=== PATIENT | female | born 1940 | race Caucasian/White ===

== ENCOUNTER → 2020-05-17 14:24 | Outpatient (BNVA) | payer MEDICARE, SELFPAY | PROVIDERS: PCP Internal Medicine; Visit Provider Hospitalist | DX: J45.40 Moderate persistent asthma, uncomplicated (principal); E66.09 Other obesity due to excess calories | CPT/HCPCS: 99212 ==

== ENCOUNTER → 2020-07-26 14:23 | Outpatient (BNVA) | payer MEDICARE, SELFPAY | PROVIDERS: PCP Internal Medicine; Visit Provider Hospitalist | DX: J45.40 Moderate persistent asthma, uncomplicated (principal); K44.9 Diaphragmatic hernia without obstruction or gangrene; Z79.899 Other long term (current) drug therapy | CPT/HCPCS: 99212 ==

== ENCOUNTER 2021-01-07 13:34 | Outpatient (REF) | payer MEDICARE, SELFPAY ==
--- NOTE | ~2021-01-07 | XR_ITS ---
EXAMINATION: XR CHEST CLINICAL INFORMATION: Dyspnea COMPARISON: None TECHNIQUE: 2 views of the chest were obtained. FINDINGS: The cardiac silhouette does not appear enlarged. The thoracic aorta is tortuous. Hilar and mediastinal contours are otherwise unremarkable. The lungs are clear. There is no pleural effusion or pneumothorax. There are degenerative changes of the spine and scoliosis. There may be an old mild lower thoracic vertebral body compression fracture. XR/XR chest 2V IMPRESSION: No evidence for acute disease in the chest.
== END 2021-01-07 13:35 | disposition home or self-care (01) ==
LOC: HO.XRAY 13:34
PROVIDERS: PCP Internal Medicine; Visit Provider Hospitalist
DX: R06.00 Dyspnea, unspecified (principal); J45.40 Moderate persistent asthma, uncomplicated; K44.9 Diaphragmatic hernia without obstruction or gangrene
CPT/HCPCS: 71046; 99212

== ENCOUNTER → 2021-01-21 14:09 | Outpatient (BNVA) | payer MEDICARE, SELFPAY | PROVIDERS: PCP Internal Medicine; Visit Provider Hospitalist | DX: J45.40 Moderate persistent asthma, uncomplicated (principal) | CPT/HCPCS: 99212 ==

== ENCOUNTER → 2021-05-12 13:11 | Outpatient (BNVA) | payer MEDICARE, SELFPAY | PROVIDERS: PCP Physician Assistant Medical; Visit Provider Hospitalist | DX: R06.00 Dyspnea, unspecified (principal); J45.40 Moderate persistent asthma, uncomplicated; K44.9 Diaphragmatic hernia without obstruction or gangrene; Z79.899 Other long term (current) drug therapy | CPT/HCPCS: 99212 ==

== ENCOUNTER 2021-07-28 11:34 | Outpatient (REF) | payer MEDICARE, SELFPAY ==
--- NOTE | ~2021-07-28 | XR_ITS ---
EXAMINATION: XR CHEST CLINICAL INFORMATION: Bronchitis. COMPARISON: 01/07/2021 chest radiographs. TECHNIQUE: 2 views of the chest were obtained. FINDINGS: The lungs are clear. There are no pleural effusions. The heart and mediastinal structures are unremarkable. Tortuosity of the descending thoracic aorta is again noted without interval change. XR/XR chest 2V IMPRESSION: No acute cardiopulmonary process.
== END 2021-07-28 11:35 | disposition home or self-care (01) ==
LOC: HO.XRAY 11:34
PROVIDERS: PCP Physician Assistant Medical; Visit Provider Internal Medicine
DX: J45.40 Moderate persistent asthma, uncomplicated (principal); J40 Bronchitis, not specified as acute or chronic
CPT/HCPCS: 71046; 99212

== ENCOUNTER → 2021-10-14 14:16 | Outpatient (BNVA) | payer MEDICARE, SELFPAY | PROVIDERS: PCP Physician Assistant Medical; Visit Provider Hospitalist | DX: J45.40 Moderate persistent asthma, uncomplicated (principal); R06.00 Dyspnea, unspecified; K44.9 Diaphragmatic hernia without obstruction or gangrene; Z79.899 Other long term (current) drug therapy | CPT/HCPCS: 99212 ==

== ENCOUNTER 2022-05-19 14:28 | Outpatient (REF) | payer MEDICARE, SELFPAY ==
--- NOTE | 2022-05-19 17:09 | PFT_ITS ---
INDICATION: COPD. SPIROMETRY: FEV1 to FVC 77% with an FEV1 of 1.68 L, which is 89% predicted and FVC of 2.19 L, which is 86% predicted. No significant response to bronchodilator is noted. Maximum voluntary ventilation 88% predicted. LUNG VOLUMES: Total lung capacity 76% predicted with expiratory residual volume of 42% predicted. DIFFUSION CAPACITY: DLCO 49% predicted. COMPARISONS: None. INTERPRETATION: No obstructive ventilatory defects. No significant response to bronchodilator is noted. Normal maximum voluntary ventilation. The patient does have a restrictive ventilatory defect consisting with mild restrictive lung disease. There is also moderate diffusion impairment. Clinical correlation warranted. Raheem Dixon MD MR/MODL / [id number]
== END 2022-05-19 14:29 | disposition home or self-care (01) ==
LOC: HO.RESP 14:28
PROVIDERS: PCP Physician Assistant Medical; Visit Provider Hospitalist
DX: J45.50 Severe persistent asthma, uncomplicated (principal)
CPT/HCPCS: 94060; 94727; 94729

== ENCOUNTER → 2022-06-11 14:26 | Outpatient (BNVA) | payer MEDICARE, SELFPAY | PROVIDERS: PCP Physician Assistant Medical; Visit Provider Hospitalist | DX: J45.40 Moderate persistent asthma, uncomplicated (principal); K44.9 Diaphragmatic hernia without obstruction or gangrene; R06.00 Dyspnea, unspecified | CPT/HCPCS: 99212 ==

== ENCOUNTER 2023-04-01 15:15 | Outpatient (AMB) | payer MEDICARE, SELFPAY ==
[2023-04-01 15:50] VITALS: PULSE 89; O2SAT 96; BMI 25.7
--- NOTE | 2023-04-01 15:50 | MHC.OFFVIS ---
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 Recently she went to [place] with a bending roll hand. Upon arrival her luggage was lost and she was without her Symbicort for a couple days. She did buy [id number] Symbicort but he came in a powdered device that she did not know how to use. Subsequently after she returned she started developing worsening shortness of breath and cough. She was given a course of azithromycin which she took without any significant improvement. Therefore, she was evaluated in the office of her primary care and was given a prednisone taper. She did have a chest x-ray and radiology imaging which was read as normal. But, we did evaluated in the office in appeared that she did have spine sign suggesting airspace disease in the lower lung zone. Clinically she feels better although she still has a nagging back discomfort. It is not pleuritic in nature. We did discuss her x-ray that she had which was within normal limits. 10/14/2021 the patient is here for a pulmonary follow-up visit. Overall the patient has been feeling a lot better. Back in July she developed an exacerbation of her asthma and also developed bronchopneumonia. If she needed antibiotics and also completed a course of prednisone. Now she is back to her baseline. She also has developed COVID a few times. She responded well to the monoclonal antibodies. I did recommend that she get her modified booster which she is now available for the fall. however, she has completed a course of rabies vaccination after having a bad her bedroom. Therefore she would like to hold off for few weeks until she is recovered from all those vaccines. She does continue with current respiratory therapy with good effect. We did review her chest x-ray from back in July 2021 demonstrating no acute disease which is reassuring. Otherwise patient is without any other complaints. 06/11/2022 The patient is here for a pulmonary follow up visit. The patient is better. She denies any new respiratory issues. Has been tolerating the symbicort and DEB. Overall the patient is doing well after developing COVID back in the fall 2021. Denies any chest pains or shortness of breath. No significant cough. Overall the patient is doing well on current therapy. The patient did have recent pulmonary function studies which we personally reviewed. No evidence of any obstruction although she does have a mild restrictive ventilatory defect. In addition to that there is a moderate diffusion impairment. We did review her last chest x-ray from July 2021 demonstrating no acute disease. No further imaging warranted. The patient is going to continue with current respiratory regimen. 04/01/2023 the patient is here for pulmonary follow-up visit. Recently she was sick with an asthma flare. Likely viral syndrome.. She did require prednisone. She also required a course of antibiotics. She is feeling better. In the meantime she was switched over from Symbicort to Breo. She does not tolerate the Breo inhaler. It does not help her and is actually making a cough and some comfortable. She would like to go back to Symbicort the work very well for her. Will go ahead and send a prescription in a [place] to get her approved since her insurance is no longer covering. Otherwise patient is doing well. Denies any significant reflux symptoms. [facility] Medical History (Updated 04/05/23 @ 09:00 by Raheem Dixon MD) Chronic restrictive lung disease Hyperlipidemia Hypothyroidism Limb swelling Dyspnea Hiatal hernia Diabetes Asthma Social History Patient Tobacco Use Status: Never used Tobacco Review of Systems Const Denies night sweats ENT Denies change in voice, Denies lip swelling, Denies mouth pain, Reports nasal congestion, Reports nasal discharge and Denies tongue swelling Card Denies chest pain and Denies dyspnea Resp Denies chest congestion, Reports cough, Denies pain on inspiration, Denies pain with cough, Denies dyspnea and Denies wheezing GI Reports heartburn Musc Denies no additional complaints, Reports arthralgias and Reports joint swelling Neuro Denies Neuro-related abnormal movements Psych Denies no additional complaints Rad/Lymph Denies easy bleeding and Denies lymphadenopathy Aller/Immun Denies lip swelling, Denies tongue swelling and Denies wheezing Physical Exam Vital Signs: Last Vital Signs Pulse 89 04/01/23 15:50 Pulse Ox 96 04/01/23 15:50 Oxygen Delivery Method Room Air 04/01/23 15:50 BMI result Body Mass Index 25.7 Const General: alert Orientation/consciousness: patient oriented x3 HEENT Head: Yes normal to inspection General nose exam: No nasal polyps present and No nasal discharge present Face and sinus: Yes sinuses nontender Mouth: oropharynx normal Throat: Yes posterior oropharynx normal Eyes General: appearance normal, both eyes and all related structures Neck Neck: Yes normal visual inspection, Yes full ROM and Yes no lymphadenopathy Thyroid: Thyroid normal Chest Chest palpation & inspection: normal inspection of the chest Resp Effort & Inspection: normal respiratory effort Auscultation: diminished lung sounds Cardio Palpation: normal PMI Rate: regular rate Rhythm: regular rhythm Heart sounds: S1 normal heart sound present, S2 normal heart sound present, no gallops and no murmurs Peripheral pulses: Peripheral pulses 2+ throughout GI Palpation (GI): Soft to palpation, nontender and no masses Auscultation: normal bowel sounds Back/Spine/Pelvis Thoracic/Lumbar Spine: thoracic and lumbar spine normal to inspection Skin General skin exam: no rashes or lesions noted Neuro General: patient oriented x3 and no focal motor deficits Cranial nerves: Yes CN's II-XII intact bilaterally Extrem General: No calf tenderness Psych Speech and movement: Normal speech and movement present Assessment & Plan Assessment & Plan (1) Asthma: Code(s): J45.909 - Unspecified asthma, uncomplicated Qualifiers: Asthma complication type: uncomplicated Asthma persistence: persistent Asthma severity: moderate Qualified Code(s): J45.40 - Moderate persistent asthma, uncomplicated (2) Dyspnea: Code(s): R06.00 - Dyspnea, unspecified Qualifiers: Dyspnea type: dyspnea on exertion Qualified Code(s): R06.09 - Other forms of dyspnea (3) Hiatal hernia: Code(s): K44.9 - Diaphragmatic hernia without obstruction or gangrene Plan stop Breo, did not tolerate restart Symbicort continue Singulair DEB as needed reflux diet CXR F/U 8-12 months Coding Level of Care Code Est Pt Level 4 (04031) Diagnoses Moderate persistent asthma without complication J45.40 Asthma complication type: uncomplicated Asthma persistence: persistent Asthma severity: moderate Dyspnea on exertion R06.09 Dyspnea type: dyspnea on exertion Hiatal hernia K44.9 Time Spent (min) 16
== END 2023-04-01 16:20 | disposition home or self-care (01) ==
PROVIDERS: PCP Physician Assistant Medical; Visit Provider Hospitalist
DX: J45.40 Moderate persistent asthma, uncomplicated (principal); R06.09 Other forms of dyspnea; K44.9 Diaphragmatic hernia without obstruction or gangrene
CPT/HCPCS: 99214

== ENCOUNTER → 2023-04-01 15:15 | Outpatient (BNVA) | payer MEDICARE, SELFPAY | PROVIDERS: PCP Physician Assistant Medical; Visit Provider Hospitalist | DX: J45.40 Moderate persistent asthma, uncomplicated (principal); K44.9 Diaphragmatic hernia without obstruction or gangrene; R06.09 Other forms of dyspnea | CPT/HCPCS: 99212 ==

== ENCOUNTER 2023-09-29 07:47 | Outpatient (AMB) | payer MEDICARE, SELFPAY ==
--- NOTE | 2023-09-29 08:15 | MHC.OFFVIS ---
Vital Signs 09/29/23 08:16 Height 5 ft 4 in Weight 155 lb BMI 26.6 BP 122/60 Blood Pressure Location Lt brachial Position Sitting Pulse 71 Pulse Source Pulse Oximeter Intake Visit Reasons: copd Joy Loading Machine Operator Required: No Allergies levofloxacin [Levaquin] Allergy (Severe, Verified 09/29/23 08:18) Rash/Hives tiotropium [Spiriva with HandiHaler] Allergy (Severe, Verified 09/29/23 08:18) Rash/Hives Avelox Allergy (Severe, Uncoded 09/29/23 08:18) Rash/Hives Hydrodiuril Allergy (Severe, Uncoded 09/29/23 08:18) Rash/Hives Penicillin Allergy (Severe, Uncoded 09/29/23 08:18) Rash/Hives Sulfa Drugs Allergy (Severe, Uncoded 09/29/23 08:18) Rash/Hives HPI Comments Details: The patient is a 83 y/o woman with a history of asthma. Recently she went to [place] with a hunter guide. Upon arrival her luggage was lost and she was without her Symbicort for a couple days. She did buy [id number] Symbicort but he came in a powdered device that she did not know how to use. Subsequently after she returned she started developing worsening shortness of breath and cough. She was given a course of azithromycin which she took without any significant improvement. Therefore, she was evaluated in the office of her primary care and was given a prednisone taper. She did have a chest x-ray and radiology imaging which was read as normal. But, we did evaluated in the office in appeared that she did have spine sign suggesting airspace disease in the lower lung zone. Clinically she feels better although she still has a nagging back discomfort. It is not pleuritic in nature. We did discuss her x-ray that she had which was within normal limits. 10/14/2021 the patient is here for a pulmonary follow-up visit. Overall the patient has been feeling a lot better. Back in July she developed an exacerbation of her asthma and also developed bronchopneumonia. If she needed antibiotics and also completed a course of prednisone. Now she is back to her baseline. She also has developed COVID a few times. She responded well to the monoclonal antibodies. I did recommend that she get her modified booster which she is now available for the fall. however, she has completed a course of rabies vaccination after having a bad her bedroom. Therefore she would like to hold off for few weeks until she is recovered from all those vaccines. She does continue with current respiratory therapy with good effect. We did review her chest x-ray from back in July 2021 demonstrating no acute disease which is reassuring. Otherwise patient is without any other complaints. 06/11/2022 The patient is here for a pulmonary follow up visit. The patient is better. She denies any new respiratory issues. Has been tolerating the symbicort and DEB. Overall the patient is doing well after developing COVID back in the fall 2021. Denies any chest pains or shortness of breath. No significant cough. Overall the patient is doing well on current therapy. The patient did have recent pulmonary function studies which we personally reviewed. No evidence of any obstruction although she does have a mild restrictive ventilatory defect. In addition to that there is a moderate diffusion impairment. We did review her last chest x-ray from July 2021 demonstrating no acute disease. No further imaging warranted. The patient is going to continue with current respiratory regimen. 04/01/2023 the patient is here for pulmonary follow-up visit. Recently she was sick with an asthma flare. Likely viral syndrome.. She did require prednisone. She also required a course of antibiotics. She is feeling better. In the meantime she was switched over from Symbicort to Breo. She does not tolerate the Breo inhaler. It does not help her and is actually making a cough and some comfortable. She would like to go back to SymbiOptynrt the work very well for her. Will go ahead and send a prescription in a [place] to get her approved since her insurance is no longer covering. Otherwise patient is doing well. Denies any significant reflux symptoms. 09/29/2023 the patient is here for pulmonary follow-up visit. Since we last saw her she did develop a respiratory infection. She started coughing. She can not see her here so she went to an urgent care. She had an x-ray that apparently was clear. She was given a course of doxycycline for bronchitis. Although still lingering. Moderate severity. She feels sometimes a croupy cough. She does bring up some phlegm although she does not always look at it. The patient also has been using the Symbicort with good effect. She has not noticed any wheezing or chest tightness. She has not had to use her rescue inhaler. On her visit today she did cough and sounds like tracheitis some degree with some croupy cough component. She also has some coarse breath sounds. Will go ahead and start her on Vantin since she is allergic to penicillins apparently however, she has never really use penicillin issue started mom was allergic. Therefore the needs to be readdress at some point. The patient will call she is no better. Otherwise she will continue her respiratory therapy and use Mucinex. Patient follow-up in 6 months. [facility] Medical History (Updated 09/29/23 @ 10:51 by Raheem Dixon MD) Chronic restrictive lung disease Hyperlipidemia Hypothyroidism Limb swelling Dyspnea Hiatal hernia Diabetes Asthma Social History Patient Tobacco Use Status: Never used Tobacco Review of Systems Const Denies night sweats ENT Denies change in voice, Denies lip swelling, Denies mouth pain, Reports nasal congestion, Reports nasal discharge and Denies tongue swelling Card Denies chest pain and Denies dyspnea Resp Reports change in phlegm color, Reports chest congestion, Reports cough, Denies pain on inspiration, Denies pain with cough, Denies dyspnea and Denies wheezing GI Reports heartburn Musc Denies no additional complaints, Reports arthralgias and Reports joint swelling Neuro Denies Neuro-related abnormal movements Psych Denies no additional complaints Rad/Lymph Denies easy bleeding and Denies lymphadenopathy Aller/Immun Denies lip swelling, Denies tongue swelling and Denies wheezing Physical Exam Vital Signs: Last Vital Signs Pulse 71 09/29/23 08:16 BP 122/60 09/29/23 08:16 BMI result Body Mass Index 26.6 Const General: alert Orientation/consciousness: patient oriented x3 HEENT Head: Yes normal to inspection General nose exam: No nasal polyps present and No nasal discharge present Face and sinus: Yes sinuses nontender Mouth: oropharynx normal Throat: Yes posterior oropharynx normal Eyes General: appearance normal, both eyes and all related structures Neck Neck: Yes normal visual inspection, Yes full ROM and Yes no lymphadenopathy Thyroid: Thyroid normal Chest Chest palpation & inspection: normal inspection of the chest Resp Effort & Inspection: normal respiratory effort Auscultation: diminished lung sounds Cardio Palpation: normal PMI Rate: regular rate Rhythm: regular rhythm Heart sounds: S1 normal heart sound present, S2 normal heart sound present, no gallops and no murmurs Peripheral pulses: Peripheral pulses 2+ throughout GI Palpation (GI): Soft to palpation, nontender and no masses Auscultation: normal bowel sounds Back/Spine/Pelvis Thoracic/Lumbar Spine: thoracic and lumbar spine normal to inspection Skin General skin exam: no rashes or lesions noted Neuro General: patient oriented x3 and no focal motor deficits Cranial nerves: Yes CN's II-XII intact bilaterally Extrem General: No calf tenderness Psych Speech and movement: Normal speech and movement present Results Reviewed Results Reviewed: personally review CXR 07/2023 without acute disease Assessment & Plan Assessment & Plan (1) Tracheobronchitis: Code(s): J40 - Bronchitis, not specified as acute or chronic Category: Medical (2) Asthma: Code(s): J45.909 - Unspecified asthma, uncomplicated Category: Medical Qualifiers: Asthma complication type: uncomplicated Asthma persistence: persistent Asthma severity: moderate Qualified Code(s): J45.40 - Moderate persistent asthma, uncomplicated (3) Dyspnea: Code(s): R06.00 - Dyspnea, unspecified Category: Medical Qualifiers: Dyspnea type: dyspnea on exertion Qualified Code(s): R06.09 - Other forms of dyspnea (4) Hiatal hernia: Code(s): K44.9 - Diaphragmatic hernia without obstruction or gangrene Category: Medical Plan start Vantin (completed Doxycycline) continue Symbicort continue Singulair DEB as needed reflux diet F/U 6 months Medications: New cefpodoxime must administer with a meal/food 200 mg PO BID 20 tabs 0RF 10 days Coding Level of Care Code Est Pt Level 4 (73865) Complex EM visit Add On G2211 Diagnoses Tracheobronchitis J40 Moderate persistent asthma without complication J45.40 Asthma complication type: uncomplicated Asthma persistence: persistent Asthma severity: moderate Dyspnea on exertion R06.09 Dyspnea type: dyspnea on exertion Hiatal hernia K44.9 Time Spent (min) 17
[2023-09-29 08:16] VITALS: BP 122/60; PULSE 71; BMI 26.6
== END 2023-09-29 08:43 | disposition home or self-care (01) ==
PROVIDERS: PCP Physician Assistant Medical; Visit Provider Hospitalist
DX: J40 Bronchitis, not specified as acute or chronic (principal); J45.40 Moderate persistent asthma, uncomplicated; R06.09 Other forms of dyspnea; K44.9 Diaphragmatic hernia without obstruction or gangrene
CPT/HCPCS: 99214; G2211

== ENCOUNTER → 2023-09-29 07:47 | Outpatient (BNVA) | payer MEDICARE, SELFPAY | PROVIDERS: PCP Physician Assistant Medical; Visit Provider Hospitalist | DX: J40 Bronchitis, not specified as acute or chronic (principal); J45.40 Moderate persistent asthma, uncomplicated; R06.09 Other forms of dyspnea; K44.9 Diaphragmatic hernia without obstruction or gangrene | CPT/HCPCS: 99212 ==

== ENCOUNTER 2023-11-04 10:07 | Outpatient (AMB) | payer MEDICARE, SELFPAY ==
--- NOTE | 2023-11-04 10:29 | A.OFFVIS_ITS ---
Vital Signs 11/04/23 10:30 Height 5 ft 4 in Weight 154 lb BMI 26.4 BP 110/70 Blood Pressure Location Lt brachial Position Sitting Pulse 78 Pulse Source Pulse Oximeter Pulse Oximetry (%) 99 Oxygen Delivery Method Room Air Intake Visit Reasons: COPD Clinical Law Professor Required: No Allergies levofloxacin [Levaquin] Allergy (Severe, Verified 11/04/23 10:34) Rash/Hives tiotropium [Spiriva with HandiHaler] Allergy (Severe, Verified 11/04/23 10:34) Rash/Hives cefpodoxime [From Vantin] Adverse Reaction (Intermediate, Verified 11/04/23 10:43) Abdominal Pain Avelox Allergy (Severe, Uncoded 11/04/23 10:34) Rash/Hives Hydrodiuril Allergy (Severe, Uncoded 11/04/23 10:34) Rash/Hives Penicillin Allergy (Severe, Uncoded 11/04/23 10:34) Rash/Hives Sulfa Drugs Allergy (Severe, Uncoded 11/04/23 10:34) Rash/Hives HPI Comments Details: The patient is a 83 y/o woman with a history of asthma. Recently she went to [place] with a clerk guide. Upon arrival her luggage was lost and she was without her Symbicort for a couple days. She did buy [id number] Symbicort but he came in a powdered device that she did not know how to use. Subsequently after she returned she started developing worsening shortness of breath and cough. She was given a course of azithromycin which she took without any significant i mprovement. Therefore, she was evaluated in the office of her primary care and was given a prednisone taper. She did have a chest x-ray and radiology imaging which was read as normal. But, we did evaluated in the office in appeared that she did have spine sign suggesting airspace disease in the lower lung zone. Clinically she feels better although she still has a nagging back discomfort. It is not pleuritic in nature. We did discuss her x-ray that she had which was within normal limits. 10/14/2021 the patient is here for a pulmonary follow-up visit. Overall the patient has been feeling a lot better. Back in July she developed an exacerbation of her asthma and also developed bronchopneumonia. If she needed antibiotics and also completed a course of prednisone. Now she is back to her baseline. She also has developed COVID a few times. She responded well to the monoclonal antibodies. I did recommend that she get her modified booster which she is now available for the fall. however, she has completed a course of rabies vaccination after having a bad her bedroom. Therefore she would like to hold off for few weeks until she is recovered from all those vaccines. She does continue with current respiratory therapy with good effect. We did review her chest x-ray from back in July 2021 demonstrating no acute disease which is reassuring. Otherwise patient is without any other complaints. 06/11/2022 The patient is here for a pulmonary follow up visit. The patient is better. She denies any new respiratory issues. Has been tolerating the symbicort and DEB. Overall the patient is doing well after developing COVID back in the fall 2021. Denies any chest pains or shortness of breath. No significant cough. Overall the patient is doing well on current therapy. The patient did have recent pulmonary function studies which we personally reviewed. No evidence of any obstruction although she does have a mild restrictive ventilatory defect. In addition to that there is a moderate diffusion impairment. We did review her last chest x-ray from July 2021 demonstrating no acute disease. No further imaging warranted. The patient is going to continue with current respiratory regimen. 04/01/2023 the patient is here for pulmonary follow-up visit. Recently she was sick with an asthma flare. Likely viral syndrome.. She did require prednisone. She also required a course of antibiotics. She is feeling better. In the meantime she was switched over from Symbicort to Breo. She does not tolerate the Breo inhaler. It does not help her and is actually making a cough and some comfortable. She would like to go back to Symbicort the work very well for her. Will go ahead and send a prescription in a PA to get her approved since her insurance is no longer covering. Otherwise patient is doing well. Denies any significant reflux symptoms. 09/29/2023 the patient is here for pulmonary follow-up visit. Since we last saw her she did develop a respiratory infection. She started coughing. She can not see her here so she went to an urgent care. She had an x-ray that apparently was clear. She was given a course of doxycycline for bronchitis. Although still lingering. Moderate severity. She feels sometimes a croupy cough. She does bring up some phlegm although she does not always look at it. The patient also has been using the Symbicort with good effect. She has not noticed any wheezing or chest tightness. She has not had to use her rescue inhaler. On her visit today she did cough and sounds like tracheitis some degree with some croupy cough component. She also has some coarse breath sounds. Will go ahead and start her on Vantin since she is allergic to penicillins apparently however, she has never really use penicillin issue started mom was allergic. Therefore the needs to be readdress at some point. The patient will call she is no better. Otherwise she will continue her respiratory therapy and use Mucinex. Patient follow-up in 6 months. 11/04/2023 the patient is here for a pulmonary follow-up visit. Overall she is doing better. During the last visit she had been sick with bronchitis. She has given a multiple courses of antibiotics. However the Vantin did cause her to have significant abdominal discomfort. After few days she had to stop it. She did feel like it helped some. Afterwards she was switched over to azithromycin and she tolerated a lot better. She still has a cough although nonproductive in nature. This can hacky. We can try Tessalon Perles to see if we can provide her some relief. He is also concerned because she was found to have a nodule that had to be biopsy because it was growing in size. And it showed suspicious cells. She is going to be seen does not general surgeon soon regarding a possible resection of thyroid area. I did reassure her that she is doing well from a respiratory status she could proceed forward. 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 However, she has been doing well from that standpoint. She has to let anesthesia know that she is at risk for laryngeal spasms so they can minimize any irritation to the vocal cords. But ultimately if she does need thyroid surgery she does not have any limitations from a pulmonary standpoint he may be able to proceed with surgery. Hopefully she can try the Tessalon Perles 1st to make sure she tolerates them as a way to control her cough afterwards. [facility] Medical History (Updated 09/29/23 @ 10:51 by Raheem Dixon MD) Chronic restrictive lung disease Hyperlipidemia Hypothyroidism Limb swelling Dyspnea Hiatal hernia Diabetes Asthma Social History Patient Tobacco Use Status: Never used Tobacco Review of Systems Const Denies night sweats ENT Denies change in voice, Denies lip swelling, Denies mouth pain, Reports nasal congestion, Reports nasal discharge and Denies tongue swelling Card Denies chest pain and Denies dyspnea Resp Reports cough, Denies pain on inspiration, Denies pain with cough, Denies dyspnea and Denies wheezing GI Reports heartburn Musc Denies no additional complaints, Reports arthralgias and Reports joint swelling Neuro Denies Neuro-related abnormal movements Psych Denies no additional complaints Rad/Lymph Denies easy bleeding and Denies lymphadenopathy Aller/Immun Denies lip swelling, Denies tongue swelling and Denies wheezing Physical Exam Vital Signs: Last Vital Signs Pulse 78 11/04/23 10:30 BP 110/70 11/04/23 10:30 Pulse Ox 99 11/04/23 10:30 Oxygen Delivery Method Room Air 11/04/23 10:30 BMI result Body Mass Index 26.4 Const General: alert Orientation/consciousness: patient oriented x3 HEENT Head: Yes normal to inspection General nose exam: No nasal polyps present and No nasal discharge present Face and sinus: Yes sinuses nontender Mouth: oropharynx normal Throat: Yes posterior oropharynx normal Eyes General: appearance normal, both eyes and all related structures Neck Neck: Yes normal visual inspection, Yes full ROM and Yes no lymphadenopathy Thyroid: Thyroid normal Chest Chest palpation & inspection: normal inspection of the chest Resp Effort & Inspection: normal respiratory effort Auscultation: clear to auscultation bilaterally Cardio Palpation: normal PMI Rate: regular rate Rhythm: regular rhythm Heart sounds: S1 normal heart sound present, S2 normal heart sound present, no gallops and no murmurs Peripheral pulses: Peripheral pulses 2+ throughout GI Palpation (GI): Soft to palpation, nontender and no masses Auscultation: normal bowel sounds Back/Spine/Pelvis Thoracic/Lumbar Spine: thoracic and lumbar spine normal to inspection Skin General skin exam: no rashes or lesions noted Neuro General: patient oriented x3 and no focal motor deficits Cranial nerves: Yes CN's II-XII intact bilaterally Extrem General: No calf tenderness Psych Speech and movement: Normal speech and movement present Assessment & Plan Assessment & Plan (1) Asthma: Code(s): J45.909 - Unspecified asthma, uncomplicated Category: Medical Qualifiers: Asthma complication type: uncomplicated Asthma persistence: persistent Asthma severity: moderate Qualified Code(s): J45.40 - Moderate persistent asthma, uncomplicated (2) Dyspnea: Code(s): R06.00 - Dyspnea, unspecified Category: Medical Qualifiers: Dyspnea type: dyspnea on exertion Qualified Code(s): R06.09 - Other forms of dyspnea (3) Hiatal hernia: Code(s): K44.9 - Diaphragmatic hernia without obstruction or gangrene Category: Medical Plan continue Symbicort continue Singulair DEB as needed reflux diet benzonates as needed F/U 6 months Medications: New benzonatate 200 mg PO BID PRN 60 caps 3RF cough 30 days Coding Level of Care Code Est Pt Level 4 (37667) Diagnoses Moderate persistent asthma without complication J45.40 Asthma complication type: uncomplicated Asthma persistence: persistent Asthma severity: moderate Dyspnea on exertion R06.09 Dyspnea type: dyspnea on exertion Hiatal hernia K44.9 Time Spent (min) 17
[2023-11-04 10:30] VITALS: BP 110/70; PULSE 78; O2SAT 99; BMI 26.4
== END 2023-11-04 10:56 | disposition home or self-care (01) ==
PROVIDERS: PCP Physician Assistant Medical; Visit Provider Hospitalist
DX: J45.40 Moderate persistent asthma, uncomplicated (principal); R06.09 Other forms of dyspnea; K44.9 Diaphragmatic hernia without obstruction or gangrene
CPT/HCPCS: 99214

== ENCOUNTER → 2023-11-04 10:07 | Outpatient (BNVA) | payer MEDICARE, SELFPAY | PROVIDERS: PCP Physician Assistant Medical; Visit Provider Hospitalist | DX: J45.40 Moderate persistent asthma, uncomplicated (principal); R06.09 Other forms of dyspnea; K44.9 Diaphragmatic hernia without obstruction or gangrene | CPT/HCPCS: 99212 ==

== ENCOUNTER 2024-02-23 08:15 | Outpatient (AMB) | payer MEDICARE, SELFPAY ==
--- OUTSIDE RECORDS SUMMARY | 2024-02-23 08:22 | XMS_ITS | Continuity of Care Document ---
Author Organization [facility] As [address] [place] [address]- Care Team Providers Care Photogeologist Name Role Phone Liliana Gutierres Primary Care Physician Encounter [facility] [place] Date(s): 01/07/24 - 02/06/[address] [place], [place] [address] Encounter Type: Triage Allergies, Adverse Reactions, Alerts Substance Criticality Severity Reaction Reaction Severity Status doxycycline 1 Active Spiriva Unsure of reaction A ctive Jardiance Active penicillins 2 Resolv ed sulfa drugs Skin Irritation : redness, sash, itching Active Levaquin Rash Active Avelox rash Active HydroDIURIL Skin Irritation : red and itch and rash Active Adhesive Bandage Skin Irrita tion: red and itchy Active metFORMIN Active 1See ED note from 07/22/22, gets upset stomach with doxy, not an allergy 2see ED note from 07/22, family history of allergy Immunizations Given and Recorded Vaccine Date Status Refusal Reason SARS-CoV-2(COVID-19)mRNA-LNP vac([id number]) 05/02/23 Recorded SARS-CoV-2(COVID-19)mRNA-LNP vac([id number]) 12/05/22 Recorded RSV vaccine preF3, recombinant 12/19/22 Recorded influenza virus vaccine, inactivated 12/05/22 Michele rded influenza virus vaccine, inactivated 11/19/21 Michele rded influenza virus vaccine, inactivated 11/09/20 Michele rded pneumococcal 20-valent conjugate vaccine 06/20/22 Recorded [id number] 12y+ bivalent booster vax 06/20/22 Recorded [id number] 12y+ bivalent booster vax 11/13/21 Recorded rabies vaccine, human diploid cell 09/25/21 Given rabies vaccine, human diploid cell 09/18/21 Given rabies vaccine, human diploid cell 09/14/21 Given rabies vaccine, human diploid cell 09/11/21 Given Rabies Immune Globulin, Human 09/11/21 Given SARS-CoV-2 mRNA ([id number]) vax 07/14/21 Recorded SARS-CoV-2 (COVID-19) mRNA BNT-162b2 vac 03/31/20 Recorded SARS-CoV-2 (COVID-19) mRNA BNT-162b2 vac 03/10/20 Recorded tetanus-diphtheria toxoids (Td) 12/30/16 Recorded Medications Align = 4 mg, By Mouth, Daily, 0 Refills, Maintenance, 03/30/23 10:29:00 AM EST, Partial fill upon patientrequest if the prescription is for a schedule II opioid drug. Start Date: 03/30/23 Status: Ordered Repeat number: 1 azithromycin 500 mg oral tablet 5 each, 0 Refill(s), TAKE 1 TABLET BY MOUTH EVERY DAY FOR 5 DAYS, 0 Refills, 09/28/23 7:49:00 AM EDT, Partial fill upon patient request if the prescription is for a schedule II opioid drug. Start Date: 09/28/23 Status: Ordered Repeat number: 1 betamethasone-clotrimazole 0.05%-1% topical cream 15 Gm, 0 Refill(s), APPLY TO AFFECTED AREA(S) BY TOPICAL ROUTE 2 TIMES A DAY FOR 7 DAYS NEEDED, 0 Refills, 09/28/23 7:49:00 AM EDT, Partial fill upon patient request if the prescription is for a schedule II opioid drug. Start Date: 09/28/23 Status: Ordered Repeat number: 1 Calcium 600 +D By Mouth, 0 Refills, Maintenance, 03/30/23 10:28:00 AM EST, Partial fill upon patient request if theprescription is for a schedule II opioid drug. Start Date: 03/30/23 Status: Ordered Repeat number: 1 fluticasone 50 mcg/inh nasal spray 1 sprays = 50 mcg, Nares, Both, 2 times a day, # 3 each, 3 Refills, Maintenance, 08/20/23 12:17:00 PM EDT, [facility] [place], [facility]/pharmacy #[id number], Partial fill upon patient request if the prescription is for a schedule II opioid drug., 1 sprays Nares, Both 2 times a day, 163, cm, 07/30/23 8:30:00 EDT, Height, 70.4, kg, 01/31/23 11:49:00 EST, Dry Weight Start Date: 08/20/23 Status: Ordered Quantity: 3.0 Unit: each Repeat number: 4 Indication: Cough, unspecified levothyroxine 75 mcg (0.075 mg) oral tablet See Instructions, 1 tablet By Mouth 5 times weekly, # 65 each, 3 Refills, Maintenance, 10/13/23 9:54:00 AM EDT, Tablet, [facility]/pharmacy #[id number], Partial fill upon patient request if the prescription is for a schedule II opioid drug., 163, cm, 09/28/23 7:50:00 EDT, Height, 70.4, kg, 01/31/23 11:49:00 EST, Dry Weight Start Date: 10/13/23 Status: Ordered Quantity: 65.0 Unit: each Repeat number: 4 levothyroxine 75 mcg (0.075 mg) oral tablet See Instructions, TAKE 1 TABLET BY MOUTH 5 days weekly, # 65 each, 3 Refills, Maintenance, 10/13/23 9:53:00 AM EDT, [facility]/pharmacy #[id number], 163, cm, 09/28/23 7:50:00 EDT, Height, 70.4, kg, 01/31/23 11:49:00 EST, Dry Weight Start Date: 10/13/23 Status: Ordered Quantity: 65.0 Unit: each Repeat number: 4 lisinopril 10 mg oral tablet 1, tablet, By Mouth, Daily, # 90 tablet, Refills 3, Maintenance, 09/20/23 8:04:00 AM EDT, Route to Pharmacy Electronically, [id number], 163, cm, 07/30/23 8:30:00 EDT, Height, 70.4, kg, 01/31/23 11:49:00 EST, Dry Weight Start Date: 09/20/23 Status: Ordered Quantity: 90.0 Unit: tablet Repeat number: 1 Miscellaneous Rx 0 Refills, 100 each, 0 Refill(s), USE TO CHECK BLOOD SUGARS ONCE DAILY E11.9 90 DAY SUPPLY, :49:00 AM EDT Start Date: 09/28/23 Status: Ordered Repeat number: 1 montelukast 10 mg oral tablet 90 tablet, 0 Refill(s), Refills 0, 09/28/23 7:49:00 AM EDT, Partial fill upon patient request if theprescription is for a schedule II opioid drug. Start Date: 09/28/23 Status: Ordered Repeat number: 1 Mounjaro 2.5 mg/0.5 mL subcutaneous solution = 2.5 mg, Subcutaneous Injection, Every week, rotate injection sites, # 4 each, 11 Refills, Maintenance, 11/08/23 1:58:00 PM EDT, Solution, [facility]/pharmacy #[id number], Partial fill upon patient request if theprescription is for a schedule II opioid drug., 163, cm, 11/05/23 8:38:00 EDT, Height, 70.4, kg, 01/31/23 11:49:00 EST, Dry Weight Start Date: 11/08/23 Status: Ordered Quantity: 4.0 Unit: each Repeat number: 12 nateglinide 120 mg oral tablet 1 tablet, By Mouth, 3 times a day before meals, # 270 tablet, 3 Refills, Maintenance, 09/06/23 7:13:00 AM EDT, [id number], 163, cm, 07/30/23 8:30:00 EDT, Height, 70.4, kg, 01/31/23 11:49:00 EST, Dry Weight Start Date: 09/06/23 Status: Ordered Quantity: 270.0 Unit: tablet Repeat number: 1 Antimony-3 oral capsule 0 Refills, Maintenance, 03/30/23 10:29:00 AM EST, Partial fill upon patient request if the prescription is for a schedule II opioid drug. Start Date: 03/30/23 Status: Ordered Repeat number: 1 omeprazole 20 mg oral delayed release tablet 1 tablet = 20 mg, By Mouth, Daily, 0 Refills, Maintenance, 10/07/22 10:54:00 AM EDT, Partial fill upon patient request if the prescription is for a schedule II opioid drug. Start Date: 10/07/22 Status: Ordered Repeat number: 1 ONE TOUCH DELICA PLUS 33G LANC ONE TOUCH DELICA PLUS 33G LANC, See Instructions, # 100 Unknown, 3 Refills, Maintenance, USE TO CHECK BLOOD SUGARS ONCE DAILY E11.9 90 DAY SUPPLY, 12/09/23 9:14:00 AM EDT, 163, cm, 11/05/23 8:38:00 EDT, Height, 70.4, kg, 01/31/23 11:49:00 EST, Dry Weight Start Date: 12/09/23 Status: Ordered Quantity: 100.0 Unit: Unknown Repeat number: 1 One touch lancets One touch lancets, See Instructions, # 100 each, Refills 3, Tot. Refills 3, Maintenance, use to check blood sugars once daily E11.9 90 day supply, 07/30/23 9:40:00 AM EDT, Supply, 163, cm, 07/30/23 8:30:00 EDT, Height, 70.4, kg, 01/31/23 11:49:00 EST, Dry Weight Start Date: 07/30/23 Status: Ordered Quantity: 100.0 Unit: each Repeat number: 4 Indication: Type 2 diabetes mellitus without complications one touch verio test strips one touch verio test strips, See Instructions, # 100 each, Refills 3, Tot. Refills 3, Maintenance, check blood sugars once daily E11.9 90 day, 07/30/23 9:40:00 AM EDT, Supply, 163, cm, 07/30/23 8:30:00 EDT, Height, 70.4, kg, 01/31/23 11:49:00 EST, Dry Weight Start Date: 07/30/23 Status: Ordered Quantity: 100.0 Unit: each Repeat number: 4 Indication: Type 2 diabetes mellitus without complications PreserVision 0 Refills, Maintenance, 03/30/23 10:28:00 AM EST, Partial fill upon patient request if the prescription is for a schedule II opioid drug. Start Date: 03/30/23 Status: Ordered Repeat number: 1 simvastatin 20 mg oral tablet 20 mg, 1, tablet, By Mouth, Daily at bedtime, 25 mg daily, # 90 tablet, Refills 3, Tot. Refills 3, Maintenance, 05/31/23 9:41:00 AM EDT, Route to Pharmacy Electronically, [facility]/pharmacy #[id number], Partial fill upon patient request if the prescription is for a schedule II opioid drug., 163, cm, 04/29/23 9:30:00 EDT, Height, 70.4, kg, 01/31/23 11:49:00 EST, Dry Weight Start Date: 05/31/23 Stop Date: 05/25/24 Status: Ordered Quantity: 90.0 Unit: tablet Repeat number: 4 Singulair 10 mg oral tablet 1 tablet = 10 mg, By Mouth, Daily at bedtime, # 90 tablet, 3 Refills, Maintenance, 01/29/15 7:49:00AM EST, [facility] Start Date: 01/29/15 Stop Date: 01/24/16 Status: Ordered Quantity: 90.0 Unit: tablet Repeat number: 4 Symbicort 160mcg/4.5mcg Inhaler 30 Gm, 0 Refill(s), Refills 0, 09/28/23 7:49:00 AM EDT Start Date: 09/28/23 Status: Ordered Repeat number: 1 Symbicort 160mcg/4.5mcg Inhaler 2, puffs, Inhalation, 2 times a day, rinse mouth and throat after use ICD 10 =J45.909, # 3 each, Refills 3, Tot. Refills 3, Maintenance, 10/01/15 1:20:00 PM EDT, Aerosol, Route to Pharmacy Electronically, [id number], [facility] Start Date: 10/01/15 Status: Ordered Quantity: 3.0 Unit: each Repeat number: 4 Ventolin HFA 108 mcg/inh inhalation aerosol with adapter 2 puffs, Inhalation, Every 6 hours, PRN for wheezing, # 18 Gm, 3 Refills, Maintenance, 07/18/14 2:05:36 PM EDT, Aerosol, [facility] Start Date: 07/18/14 Status: Ordered Quantity: 18.0 Unit: g Repeat number: 4 Vitamin D3 = 2,000 International_Units, By Mouth, 0 Refills, Maintenance, 01/15/14 3:12:48 PM EST Start Date: 01/15/14 Status: Ordered Repeat number: 1 Problem List Condition Confirmation Course Effective Dates Status H ealth Status Informant Splenic artery aneurysm Confirmed Active Nonrheumatic aortic valve insufficiency Confirmed Active Asthma Confirmed Active Diastolic dysfunction Confirmed Active Primary hypertension Confirmed Active GERD (gastroesophageal reflux disease) Confirmed Active Hiatal hernia Confirmed Active Hypothyroidism Confirmed Active Mixed hyperlipidemia Confirmed Active Dry senile macular degeneration Confirmed Active Osteoporosis Confirmed Active Diabetic retinopathy Confirmed Active Thyroid nodule Confirmed Active Type 2 diabetes mellitus without complication, without long-term current use of insulin Confirmed Active Social History Social History Type Response Smoking Status Never smoker; Tobacc o user in household: No entered on: 01/15/14 Sex Sex Representation Female (finding) Patient Care team information Care Team Personnel Name: Liliana Gutierres Position: [facility] PCO Associate Professional Member Role: PCP Address: [address] [place] [address] Telecom: Name: Dara Headley Position: [facility] Tape Control Skin Or Spar Mill Operator Member Role: Business Applications Manager Name: Gabi Milton RN Position: [facility] RN Member Role: Primary Care Nurse Name: Fadi ACEVES, Ren Rivera Position: [facility] Cardiology MD Member Role: Lifetime Consulting Physician Address: [address] [place] [address] Telecom: Care Team Related Persons Name: DAVI GLORIA Name: KERI QUINTANILLA Name: BRENTON KISER Insurance Providers Guarantor name: WARREN QUINTANILLA Health Plan Information #: 1 Payer: MEDEX Member Number: NA Policy Number: NA Group Number: NA Health Plan Information #: 2 Payer: MEDICARE PART B OUTPT Member Number: NA Policy Number: NA Group Number: NA
--- OUTSIDE RECORDS SUMMARY | 2024-02-23 08:22 | XMS_ITS | Continuity of Care Document ---
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 Name Role Phone Liliana Gutierres Primary Care Physician Encounter [facility] NBR [id number] Date(s): 02/15/24 - 02/15/[address] [address]- Discharge Disposition: A-D/C Home Attending Physician: Domo Villagomez MD Admitting Physician: Domo Villagomez MD Referring Physician: Not on Staff, Referring MD Encounter Type: Disch ES Allergies, Adverse Reactions, Alerts Substance Criticality Severity Reaction Reaction Severity Status penicillins 1 Resolv ed sulfa drugs Skin Irritation : redness, sash, itching Active Levaquin Rash Active Avelox rash Active HydroDIURIL Skin Irritation : red and itch and rash Active Adhesive Bandage Skin Irrita tion: red and itchy Active Spiriva Unsure of reaction A ctive metFORMIN Active Jardiance Active 1see ED note from 07/22, family history of allergy Immunizations Given and Recorded Vaccine Date Status Refusal Reason SARS-CoV-2(COVID-19)mRNA-LNP vac([id number]) 05/02/23 Recorded SARS-CoV-2(COVID-19)mRNA-LNP vac(vdk803) 12/05/22 Recorded RSV vaccine preF3, recombinant 12/19/22 Recorded influenza virus vaccine, inactivated 12/05/22 Michele rded influenza virus vaccine, inactivated 11/19/21 Michele rded influenza virus vaccine, inactivated 11/09/20 Michele rded pneumococcal 20-valent conjugate vaccine 06/20/22 Recorded [id number] 12y+ bivalent booster vax 06/20/22 Recorded [id number] 12y+ bivalent booster vax 11/13/21 Recorded rabies vaccine, human diploid cell 09/25/21 Given rabies vaccine, human diploid cell 09/18/21 Given rabies vaccine, human diploid cell 09/14/21 Given rabies vaccine, human diploid cell 09/11/21 Given Rabies Immune Globulin, Human 09/11/21 Given SARS-CoV-2 mRNA ([id number]) vax 07/14/21 Recorded SARS-CoV-2 (COVID-19) mRNA BNT-162b2 [...] Date: 09/28/23 Status: Ordered Repeat number: 1 benzonatate 100 mg oral capsule 1 capsule = 100 mg, By Mouth, 3 times a day, PRN as needed for cough, for 7 days, # 21 capsule, 0 Refills, Acute 02/22/24 1:42:00 PM EST, 02/15/24 1:42:00 PM EST, Capsule, [facility]/pharmacy #[id number], Partial fill upon patient request if the prescription is for a schedule II opioid drug., 162, cm, 02/15/24 12:14:00 EST, Height, 67.4, kg, 02/15/24 12:14:00 EST, Dry Weight Start Date: 02/15/24 Stop Date: 02/22/24 Status: Ordered Quantity: 21.0 Unit: capsule Repeat number: 1 betamethasone-clotrimazole 0.05%-1% topical cream [...] 3 Refills, Maintenance, 08/20/23 12:17:00 PM EDT, [place], [facility]/pharmacy #[id number], Partial fill upon patient request if [...] Refills, Maintenance, 10/13/23 9:54:00 AM EDT, Tablet, [facility]/pharmacy #[id number], Partial fill upon patient request if [...] 3 Refills, Maintenance, 10/13/23 9:53:00 AM EDT, [facility]/pharmacy #[id number], 163, cm, 09/28/23 7:50:00 EDT, Height, 70.4, kg, 01/31/23 11:49:00 EST, Dry Weight Start Date: 10/13/23 Status: Ordered Quantity: 65.0 Unit: each Repeat number: 4 lisinopril 10 mg oral tablet 1, tablet, By Mouth, Daily, # 90 tablet, Refills 3, Maintenance, 09/20/23 8:04:00 AM EDT, Route to Pharmacy Electronically, [facility] STORE [id number], 163, cm, 07/30/23 8:30:00 EDT, Height, 70.4, kg, 01/31/23 11:49:00 EST, Dry Weight Start Date: 09/20/23 Status: Ordered Quantity: 90.0 Unit: tablet Repeat number: 1 Miscellaneous Rx 0 Refills, 100 each, 0 Refill(s), USE TO CHECK BLOOD SUGARS ONCE DAILY E11.9 90 DAY SUPPLY, 247:49:00 AM EDT Start Date: 09/28/23 Status: Ordered [...] Refills, Maintenance, 11/08/23 1:58:00 PM EDT, Solution, [facility]/pharmacy #[id number], Partial fill upon patient request if [...] 3 Refills, Maintenance, 09/06/23 7:13:00 AM EDT, [facility] STORE [id number], 163, cm, 07/30/23 8:30:00 EDT, Height, 70.4, kg, 01/31/23 11:49:00 EST, Dry Weight Start Date: 09/06/23 Status: Ordered Quantity: 270.0 Unit: tablet Repeat number: 1 Newton-3 oral capsule 0 Refills, Maintenance, 03/30/23 10:29:00 [...] Indication: Type 2 diabetes mellitus without complications predniSONE 10 mg oral tablet See Instructions, Take: 5 tablets x 2 days 4 tablets x 2 days 3 tablets x 2 days 2 tablets x 2 days1 tablet x 2 day Total of 10 days of treatment, # 30 tablet, 0 Refills, Maintenance, 02/15/24 1:42:00PM EST, Tablet, [facility]/pharmacy #[id number], Partial fill upon patient request if the prescription is for a schedule II opioid drug., 162, cm, 02/15/24 12:14:00 EST, Height, 67.4, kg, 02/15/24 12:14:00 EST, Dry Weight Start Date: 02/15/24 Status: Ordered Quantity: 30.0 Unit: tablet Repeat number: 1 PreserVision 0 Refills, Maintenance, 03/30/23 10:28:00 AM [...] 9:41:00 AM EDT, [id number] fill upon patient request if [...] tablet, 3 Refills, Maintenance, 01/29/15 7:49:00AM EST, [facility] Start Date: 01/29/15 Stop Date: 01/24/16 [...] PM EDT, Aerosol, Route to Pharmacy Electronically, [id number], [facility] Start Date: 10/01/15 Status: Ordered Quantity: 3.0 Unit: each Repeat number: 4 Ventolin HFA 108 mcg/inh inhalation aerosol with adapter 2 puffs, Inhalation, Every 6 hours, PRN for wheezing, # 18 Gm, 3 Refills, Maintenance, 07/18/14 2:05:36 PM EDT, Aerosol, [facility] Start Date: 07/18/14 Status: Ordered Quantity: 18.0 Unit: g Repeat number: 4 Vitamin D3 = 2,000 International_Units, By Mouth, 0 Refills, Maintenance, 01/15/14 3:12:48 PM EST Start Date: 01/15/14 Status: Ordered Repeat number: 1 Problem List Condition Confirmation Course Effective Dates Status H ealth Status Informant Splenic artery aneurysm Confirmed Active Nonrheumatic aortic valve insufficiency Confirmed Active Asthma Confirmed Active COVID-19 1 Confirmed 02/15/24 Active Diastolic dysfunction Confirmed Active Primary hypertension Confirmed Active GERD (gastroesophageal reflux disease) Confirmed Active Hiatal hernia Confirmed Active Hypothyroidism Confirmed Active Mixed hyperlipidemia Confirmed Active Dry senile macular degeneration Confirmed Active Osteoporosis Confirmed Active Diabetic retinopathy Confirmed Active Thyroid nodule Confirmed Active Type 2 diabetes mellitus without complication, without long-term current use of insulin Confirmed Active 1Problem added by Discern Expert Results Radiology Reports * Exam Date Time Procedure Performing Provider Status 02/15/24 12:24 PM Chest 2 Views Frontal and Lat Chetna Banks; Lex (Verified) Notes: (Chest 2 Views Frontal and Lat) Reason For Exam: Cough RESULT: Chest 2 Views Frontal and Lat Chest 2 Views Frontal and Lat Hx of Present Illness: Pt has had sob cough and congestion for 3 days. pt has had a low grade feverand chills; Reason: Cough; Clinical Question(s): Asthma COMPARISON: Multiple priors with the most recent dated 07/28/2023. FINDINGS: LINES AND TUBES: None. LUNGS AND PLEURA: Clear lungs. Normal pulmonary vascularity. No pleural effusion. No pneumothorax. HEART, MEDIASTINUM AND ILDA: Heart is normal in size. There is moderate ectasia of the thoracic aorta. BONES AND SOFT TISSUES: No acute abnormality. Mild multilevel degenerative change is seen involving the mid to lower thoracic spine. IMPRESSION: No acute abnormality. WSN: [id number] Ordering Physician: Zach Alvarado Dictated By: Chepe Magaña MD, V Dictated Date/Time: 02/15/24 12:28 p Reviewed By: Chepe Magaña MD, V Signed By: Chepe Magaña MD, V Signed Date/Time: 02/15/24 12:28 pm Transcribed By: CECELIA Transcribed Date/Time: 02/15/24 12:27 pm Vital Signs Most recent to oldest [Reference Range]: 1 2 3 Height 162 cm (02/15/24 1:56 PM) 162 cm (02/15/24 12:07 PM) Weight 67.4 kg (02/15/24 1:56 PM) 67.4 kg (02/15/24 12:07 PM) Oxygen Saturation [94-100 %] 97 % (02/15/24 1:56 PM) 98 % (02/15/24 12:07 PM) 98 % (02/15/24 12:07 PM) Pulse Rate [55-90 bpm] 89 bpm (02/15/24 1:56 PM) 98 bpm *H* (02/15/24 12:07 PM) 116 bpm *H* (02/15/24 12:07 PM) Body Mass Index [18.5-24.99 kg/m2] 25.68 kg/m2 *H* (02/15/24 1:56 PM) Blood Pressure [90-138/55-84 mm Hg] 137/81mm Hg (02/15/24 12:07 PM) Respiratory Rate [16-30 br/min] 20 br/min (02/15/24 1:56 PM) 18 br/min (02/15/24 12:07 PM) Temperature [96.8-100.4 DegF] 97.9 DegF (02/15/24 12:07 PM) Mode of Delivery (Oxygen) Room air (02/15/24 12:07 PM) Temperature Route Temporal (02/15/24 12:07 PM) Dry Weight 67.4 kg (02/15/24 1:56 PM) 67.4 kg (02/15/24 12:07 PM) Weight Obtained Via Standing scale (02/15/24 12:07 PM) Social History Social History Type Response Smoking Status Never smoker; Tobacc o user in household: No entered on: 01/15/14 Sex Sex Representation Female (finding) Note * Caleb Rodriguez: PERFORM Event Display: Patient Education Leaflets Authored Date: [id number] Bronchitis, No Antibiotics (Adult) ?? [id number] Bronchitis, No Antibiotics (Adult) Bronchitis is inflammation and swelling of the air passages (bronchial tubes) in your lungs. This is often caused by an infection. Your bronchitis was caused by a virus.??Symptoms include a dry, hacking cough that is worse at night. The cough may bring up yellow-green mucus. You may also feel shortof breath or wheeze. Other symptoms may include tiredness, chest discomfort, fever, and chills. This illness can be spread to other people in the first few days. It is spread through the air by coughing and sneezing. It is also spread by direct contact. This means touching the sick person and then touching your own eyes, nose, or mouth. Bronchitis that is caused by a virus is often not treated with antibiotic medicine. Instead, medicines may be given to help relieve symptoms. Symptoms can last up to 2 weeks. The cough may last much longer. Home care Follow these guidelines when caring for yourself at home: ??? If your symptoms are severe, rest at home for the first 2 to 3 days. When you go back to your daily tasks, don't let yourself get too tired. ??? Do not smoke. Stay away from secondhand smoke. ??? You may use netg-onx-lrplfmd medicine to control fever or pain. Or use another pain medicine as prescribed.??If you have chronic liver or kidney disease or have ever had a stomach ulcer or bleeding in your stomach or intestines, talk with your healthcare provider before using these medicines. Also talk to your provider if you are taking medicine to prevent blood clots. Aspirin should never be taken by anyone under age 18 who has a virus or fever. It may cause severe liver or brain damage. ??? Your body needs a lot of fluids now. Drink 6 to 8 glasses of fluids per day. This includes water, soft drinks, sports drinks, juices, tea, or soup. Extra fluids will help loosen mucus in your nose and lungs. ??? Your appetite may be low. A light diet is fine. ??? Pkio-kbd-hmguscm cough, cold, and sore-throat medicines will not shorten the armando gth of the illness. But they may help to reduce your symptoms. Don't use decongestants if you have high blood pressure. ?? Follow-up care Follow up with your healthcare provider, or as advised. If you had an X-ray or ECG (electrocardiogram), a specialist will review it. You will be told of any results that may affect your care. Ask your healthcare provider about the pneumococcal vaccines and a yearly flu shot. There are 2 kinds of pneumococcal vaccines. You may need both. You???re at higher risk of lung infection if any of these apply to you: ??? If you are older ??? If you have a chronic lung disease ??? If you have condition that affects your immune system ??? If you smoke ?? When to get medical care Call your healthcare provider right away if you have any of these: ??? Fever of 100.4??F (38??C) orhigher ??? Coughing up more mucus ??? Facial pain or ear pain ??? Mild weakness, drowsiness, headache, or a stiff neck ?? Call 911 Call 911 if any of these occur: ??? Coughing up blood ??? Weakness, drowsiness, headache, or stiff neck that get worse ??? Trouble breathing, wheezing, or pain with breathing ??? Lips or skin looks blue, purple, or morrison in color ??? Feeling of doom ?? Last Reviewed Date: 2023 ?? [employer]. All rights reserved. This information is not intended as a substitute for professional medical care. Always follow your healthcare professional's instructions. ?? * Caleb Rodriguez: PERFORM Event Display: Patient Education Leaflets Authored Date: [id number] Understanding Coronavirus Disease 2019 COVID-19 ?? 323 Understanding Coronavirus Disease 2019 (COVID-19) Coronavirus disease 2019 (COVID-19) is a respiratory illness. It's caused by a new (novel) coronavirus called SARS-CoV-2. There are many types of coronavirus. Coronaviruses are a very common cause ofbronchitis. They may sometimes cause lung infection (pneumonia). Symptoms can range from mild to severe respiratory illness. These viruses are also found in some animals. COVID-19 was first found in people in [facility], in late 2018. In 2020, several cases of COVID-19 have been confirmed in the [place] COVID-19 is a rapidly- emerging infectious disease. This means that scientists are actively researching it.??There are information updates regularly. Public health officials are working to find the source. How the virus spreads is not yet fully understood, but it seems to spread and infect people fairly easily. Some people who have been infected in an area may be unsure how or where they became infected. The virus may be spread through droplets of fluid that a person coughs or sneezes into the air. It may be spread if you touch a surface with virus on it, such as a handle or object, and then touch your eyes, nose, or mouth. For the latest information, visit the CDC website at www.cdc.gov/coronavirus/2019-ncov. Or call 953-EZW-ZNUE (224-958-3787). What are the symptoms of COVID-19? Some people have no symptoms or mild symptoms. Symptoms may appear 2 to 14 days after contact with the virus. Symptoms can include: ??? Fever ??? Coughing ??? Trouble breathing What are possible complications from COVID-19? In many cases, this virus can cause infection (pneumonia) in both lungs. In some cases, this can cause . Certain people are at higher risk for complications. This includes older adults and people with serious chronic health conditions such as heart or lung disease or diabetes. How is COVID-19 diagnosed? Your healthcare provider will ask about your symptoms. He or she will also ask about your recent travel and contact with sick people. If your healthcare provider thinks you may have COVID-19, he or she will work closely with your local health department on testing. Follow all instructions from yourhealthcare provider. COVID-19 is diagnosed by: ??? Nose and throat swab. A cotton-tipped swab is wiped inside your nose or throat. This is done tocheck for viruses in your nasal mucus. ??? Sputum culture. A small sample of mucus coughed from your lungs (sputum) is collected if you have a cough. It's checked for the virus. How is COVID-19 treated? There is currently no medicine to treat the virus. Treatment is done to help your body while it fights the virus. This is known as supportive care. Supportive care may include: ??? Pain medicine. These include acetaminophen and ibuprofen. They are used to help ease pain and reduce fever. ??? Bed rest. This helps your body fight the illness. For severe illness, you may need to stay in the hospital. Care during severe illness may include: ??? IV (intravenous) fluids. These are given through a vein to help keep your body hydrated. ??? Oxygen. Supplemental oxygen or ventilation with a breathing machine (ventilator) may be given. This isdone so you get enough oxygen in your body. Are you at risk for COVID-19? You are at risk for infection if you ???ve been to a place where people have been sick with this virus or if there are people with COVID-19 in your area. You are at risk if you: ??? Recently traveled to an area with a COVID-19 outbreak ??? Had contact with a sick person who recently traveled to an area with a COVID-19 outbreak ??? Had contact with a person who was diagnosed with or who may have COVID-19 ?? How can COVID-19 be prevented? There is no vaccine yet. The best prevention is to not have contact with the virus. The CDC advisesthat people should not travel to areas where there are COVID-19 outbreaks right now for any reason that is not urgent. For the most current CDC travel advisories, visit the CDC website at www.cdc.gov/ coronavirus/2019-ncov/travelers. ? To help prevent spreading the infection, wash your hands often, or use an alcohol-based hand supply aide. The CDC advises that you should not wear a facemask if you are not sick. Prepare and protect yourself from COVID-19: ??? Wash your hands often with soap and clean, running water for at least 20 seconds. ??? If you don't have access to soap and water, use an alcohol-based hand supply aide often. Make sure it has at least 60% alcohol. ??? Don't touch your eyes, nose, or mouth unless you have clean hands. ??? As much as possible, don't touch high-touch public surfaces such as doorknobs. Don't shake hands. ??? Clean home and work surfaces often with disinfectant. ??? Cough or sneeze into a tissue, then throw the tissue into the trash. If you don't have tissues, cough or sneeze into the bend of your elbow. ??? Stay informed about COVID-19 in your area. Follow local instructions about being in public. Be aware of events in your community that may be postponed or canceled such as school and sporting events. You may be advised not to attend public gatherings. You will be advised to stay about 6 feet from others as much as possible. This is called social distancing. ??? Check your home supplies. Consider keeping a 2-week supply of medicines, food, and other needed household items. ??? Make a plan for chil dcare, work, and ways to stay in touch with others. Know who will help you if you get sick. ??? Don't be around people who are sick. ??? There is no evidence right now that animals spread SARS-CoV-2.But it's always a good idea to wash your hands after touching any animals. Don't touch animals thatmay be sick. ??? Don ???t share eating or drinking utensils with sick people. ??? Don???t kiss someone who is sick. If you were in an area with COVID-19 in the last 14 days: ??? Call your healthcare provider and follow all instructions. Your activities and where you go maybe restricted for up to 2 weeks. ??? Take your temperature every morning and evening for at least 14 days. This is to check for fever. Keep a record of the readings. ??? Watch for symptoms of the virus. Call your provider if you have symptoms. Call your provider first before going to any clinic or hospital. ??? Stay home if you are sick for any reason. If you are sick with COVID-19 symptoms: ??? Stay home. Call your healthcare provider and tell them you have symptoms of COVID-19. Do this before going to any hospital or clinic. Follow your provider's instructions. You may be advised to isolate yourself at home. This is called self-isolation or self-quarantine. ??? Don ???t panic. Keep in mind that other illnesses can cause similar symptoms. ??? Stay away from work, school, and public places. Limit physical contact with family members. Limit visitors. Don't kiss anyone or share eating or drinking utensils. Clean surfaces you touch with disinfectant. This is to help prevent the virus from spreading. ??? Cough or sneeze into a tissue, then throw away the tissue in the trash. If youdon't have tissues, cough or sneeze into the bend of your elbow. ??? Wear a facemask only if you have symptoms ??? If you need to go in to a hospital or clinic, expect that the healthcare staff will wear protective equipment such as masks, gowns, gloves, and eye protection. You may be put in a separate room. This is to prevent the possible virus from spreading. ??? Tell the healthcare staff about recent travel. This includes local travel on public transport. Staff may need to find other people you have been in contact with. ??? Follow all instructions the healthcare staff give you. If you have been diagnosed with COVID-19 ??? Stay home. Don ???t leave your home unless you need to get medical care. Don't go to work, school, or public areas. Don't use public transportation or taxis. ??? Follow all instructions from yourhealthcare provider. Call your healthcare provider???s office before going. They can prepare and give you instructions. This will help prevent the virus from spreading. ??? If you need to go to a hospital or clinic, expect that the healthcare staff will wear protective equipment such as masks, gowns, gloves, and eye protection. You may be put in a separate room. This is to prevent the possible virus from spreading. ??? Wear a face mask. This is to protect other people from your germs. If you are not able to wear a mask, your caregivers should. ??? Stay away from other people in your home. ???Limit contact with pets and animals. Although there are no reports of pets getting sick with COVID-19, consider limiting contact with pets until more is known. ??? Don???t share household items or food. ??? Cover your face with a tissue when you cough or sneeze. Throw the tissue away. Then wash your hands. ??? Wash your hands often. If you are caring for a sick person: ??? Follow all instructions from healthcare staff. ??? Wash your hands often. ??? Wear protective clothing as advised. ??? Make sure the sick person wears a mask. If they can't wear a mask, don't stay in the same room with the person. If you must be in the same room, wear a facemask. ??? Keep trackof the sick person???s symptoms. ??? Clean surfaces, fabrics, and laundry thoroughly. ??? Keep other people and pets away from the sick person. When to call your healthcare provider Call your healthcare provider: ??? If you ???ve recently traveled or have been in an area with COVID-19 and have symptoms ??? If you have been diagnosed with COVID-19 and your symptoms are worse ? [id number] [employer]. [address] [place] [address]. All rights reserved. This information is not intended as a substitute for professional medical care. Always follow your healthcare professional's instructions. ?? Patient Care team information Care Team Personnel Name: Liliana Gutierres Position: [facility] PCO Associate Professional Member Role: PCP Address: [place], [place] [id number] Telecom: Name: Dara Headley Position: [facility] Tool Crib Lead Member Role: Blueprint Clerk Name: Karine HOLLOWAY, Gabi Position: [facility] RN Member Role: Primary Care Nurse Name: Fadi ACEVES, Ren Rivera Position: [facility] Cardiology MD Member Role: [employer] Consulting Physician Address: [address] [place] [address] Telecom: Care Team Related Persons Name: JUANI DAVI Name: KERI QUINTANILLA Name: BRENTON KISER Insurance Providers Guarantor name: WARREN QUINTANILLA Health Plan Information #: 1 Payer: MEDICARE PART B OUTPT Member Number: [id number] Policy Number: NA Group Number: NA Health Plan Information #: 2 Payer: [employer] Member Number: [id number] Policy Number: NA Group Number: NA
--- OUTSIDE RECORDS SUMMARY | 2024-02-23 08:22 | XMS_ITS | Continuity of Care Document ---
Author Organization [facility] Address [address] [place] [id number]- Care Team Providers Care Russian Language Instructor Name Role Phone Liliana Gutierres Primary Care Physician [place] [facility] [place]02[place]24 [facility] [address] [place] [id number] Encounter Type: Triage Allergies, Adverse Reactions, Alerts Substance Criticality Severity Reaction Reaction Severity Status doxycycline 1 Active penicillins 2 Resolv ed sulfa drugs Skin Irritation : redness, sash, itching Active Levaquin Rash Active Avelox rash Active HydroDIURIL Skin Irritation : red and itch and rash Active Adhesive Bandage Skin Irrita tion: red and itchy Active Spiriva Unsure of reaction A ctive metFORMIN Active Jardiance Active 1See ED note from 07/22/22, gets upset stomach with doxy, not an allergy 2see ED note from 07/22, family history of allergy Immunizations Given and Recorded Vaccine Date Status Refusal Reason SARS-CoV-2(COVID-19)mRNA-LNP vac([id number]) 05/02/23 Recorded SARS-CoV-2(COVID-19)mRNA-LNP vac(fsh621) 12/05/22 Recorded RSV vaccine preF3, recombinant 12/19/22 Recorded influenza virus vaccine, inactivated 12/05/22 Michele rded influenza virus vaccine, inactivated 11/19/21 Michele rded influenza virus vaccine, inactivated 11/09/20 Michele rded pneumococcal 20-valent conjugate vaccine 06/20/22 Recorded [id number] 12y+ bivalent booster vax 06/20/22 Recorded [id number] 12y+ bivalent booster vax 11/13/21 Recorded rabies vaccine, human diploid cell 09/25/21 Given rabies vaccine, human diploid cell 09/18/21 Given rabies vaccine, human diploid cell 09/14/21 Given rabies vaccine, human diploid cell 09/11/21 Given Rabies Immune Globulin, Human 09/11/21 Given SARS-CoV-2 mRNA ([id number]) vax 07/14/21 Recorded SARS-CoV-2 (COVID-19) mRNA BNT-162b2 [...] 3 Refills, Maintenance, 08/20/23 12:17:00 PM EDT, [place], [facility]/pharmacy #[id number], Partial fill upon patient request if [...] Refills, Maintenance, 10/13/23 9:54:00 AM EDT, Tablet, [facility]/pharmacy #[id number], Partial fill upon patient request if [...] 3 Refills, Maintenance, 10/13/23 9:53:00 AM EDT, [facility]/pharmacy #[id number], 163, cm, 09/28/23 7:50:00 EDT, Height, 70.4, kg, 01/31/23 11:49:00 EST, Dry Weight Start Date: 10/13/23 Status: Ordered Quantity: 65.0 Unit: each Repeat number: 4 lisinopril 10 mg oral tablet 1, tablet, By Mouth, Daily, # 90 tablet, Refills 3, Maintenance, 09/20/23 8:04:00 AM EDT, Route to Pharmacy Electronically, [id number], 163, cm, 07/30/23 8:30:00 EDT, Height, 70.4, [...] Refills, Maintenance, 11/08/23 1:58:00 PM EDT, Solution, [facility]/pharmacy #[id number], Partial fill upon patient request if [...] 3 Refills, Maintenance, 09/06/23 7:13:00 AM EDT, [id number], 163, cm, 07/30/23 8:30:00 EDT, Height, 70.4, kg, 01/31/23 11:49:00 EST, Dry Weight Start Date: 09/06/23 Status: Ordered Quantity: 270.0 Unit: tablet Repeat number: 1 [place]-3 oral capsule 0 Refills, Maintenance, 03/30/23 10:29:00 [...] 9:41:00 AM EDT, Route to Pharmacy Electronically, [facility]/pharmacy #[id number], Partial fill upon patient request if the [...] tablet, 3 Refills, Maintenance, 01/29/15 7:49:00AM EST, [facility] Start Date: 01/29/15 Stop [...] PM EDT, Aerosol, Route to Pharmacy Electronically, [id number], [facility] Start Date: 10/01/15 Status: Ordered Quantity: 3.0 Unit: each Repeat number: 4 Ventolin HFA 108 mcg/inh inhalation aerosol with adapter 2 puffs, Inhalation, Every 6 hours, PRN for wheezing, # 18 Gm, 3 Refills, Maintenance, 07/18/14 2:05:36 PM EDT, Aerosol, [facility] Start Date: 07/18/14 Status: Ordered Quantity: [...] Care Team Personnel Name: Liliana Gutierres Position: [facility] PCO Associate Professional Member Role: PCP Address: [address] [place] [address] Telecom: Name: Dara Headley Position: [facility] Automotive Vehicle Inspector Member Role: Shower Maid Name: Gabi Milton RN Position: [facility] RN Member Role: Primary Care Nurse Name: Fadi ACEVES, Ren Rivera Position: [facility] Cardiology MD Member Role: Lifetime Consulting Physician Address: [address] [place] [address] Telecom: Care Team Related Persons Name: ADVI GLORIA Name: KERI QUINTANILLA Name: BRENTON KISER Insurance Providers Guarantor name: WARREN QUINTANILLA Health Plan Information #: 1 Payer: MEDICARE PART B OUTPT Member Number: NA Policy Number: NA Group Number: NA Health Plan Information #: 2 Payer: MEDEX Member Number: NA Policy Number: NA Group Number: NA
--- OUTSIDE RECORDS SUMMARY | 2024-02-23 08:22 | XMS_ITS | Continuity of Care Document ---
Author Organization [facility] As [address] [place] [address]- Care Team Providers Care Mobile Developer Name Role Phone Liliana Gutierres Primary Care Physician Encounter [facility] [place] Date(s): 12/27/23 - 01/26/24 [facility] Surgical [address] [place], [place] [address] Encounter Type: Triage Allergies, Adverse Reactions, Alerts Substance Criticality Severity Reaction Reaction Severity Status doxycycline 1 Active HydroDIURIL Skin Irritation : red and itch and rash Active Spiriva Unsure of reaction A ctive Jardiance Active metFORMIN Active penicillins 2 Resolv ed sulfa drugs Skin Irritation : redness, sash, itching Active Levaquin Rash Active Avelox rash Active Adhesive Bandage Skin Irrita tion: red and itchy Active 1See ED note from 07/22/22, gets upset stomach with doxy, not an allergy 2see ED note from 07/22, family history of allergy Immunizations Given and Recorded Vaccine Date Status Refusal Reason SARS-CoV-2(COVID-19)mRNA-LNP vac([id number]) 05/02/23 Recorded SARS-CoV-2(COVID-19)mRNA-LNP vac(glg706) 12/05/22 Recorded RSV vaccine preF3, recombinant 12/19/22 Recorded influenza virus vaccine, inactivated 12/05/22 Michele rded influenza virus vaccine, inactivated 11/19/21 Michele rded influenza virus vaccine, inactivated 11/09/20 Michele rded pneumococcal 20-valent conjugate vaccine 06/20/22 Recorded [id number] 12y+ bivalent booster vax 06/20/22 Recorded [id number]-[id number] 12y+ bivalent booster vax 11/13/21 Recorded rabies vaccine, human diploid cell 09/25/21 Given rabies vaccine, human diploid cell 09/18/21 Given rabies vaccine, human diploid cell 09/14/21 Given rabies vaccine, human diploid cell 09/11/21 Given Rabies Immune Globulin, Human 09/11/21 Given SARS-CoV-2 mRNA ([id number]) vax 07/14/21 Recorded SARS-CoV-2 (COVID-19) mRNA BNT-162b2 [...] 3 Refills, Maintenance, 08/20/23 12:17:00 PM EDT, [place], [facility]/pharmacy #[id number], Partial fill upon patient [...] Refills, Maintenance, 10/13/23 9:54:00 AM EDT, Tablet, [facility]/pharmacy #[id number], Partial fill upon patient [...] 3 Refills, Maintenance, 10/13/23 9:53:00 AM EDT, [facility]/pharmacy #[id number], 163, cm, 09/28/23 7:50:00 EDT, Height, 70.4, kg, 01/31/23 11:49:00 EST, Dry Weight Start Date: 10/13/23 Status: Ordered Quantity: 65.0 Unit: each Repeat number: 4 lisinopril 10 mg oral tablet 1, tablet, By Mouth, Daily, # 90 tablet, Refills 3, Maintenance, 09/20/23 8:04:00 AM EDT, Route to Pharmacy Electronically, [facility] [id number], 163, cm, 07/30/23 8:30:00 EDT, Height, 70.4, [...] Refills, Maintenance, 11/08/23 1:58:00 PM EDT, Solution, [facility]/pharmacy #[id number], Partial fill upon patient [...] 3 Refills, Maintenance, 09/06/23 7:13:00 AM EDT, [facility] ST[facility] 01434, 163, cm, 07/30/23 8:30:00 EDT, Height, 70.4, kg, 01/31/23 11:49:00 EST, Dry Weight Start Date: 09/06/23 Status: Ordered Quantity: 270.0 Unit: tablet Repeat number: 1 [place]-3 oral capsule 0 Refills, Maintenance, 03/30/23 10:29:00 [...] 9:41:00 AM EDT, Route to Pharmacy Electronically, [facility]/pharmacy #[id number], Partial fill upon patient request if the [...] 3 Refills, Maintenance, 01/29/15 7:49:00AM EST, [facility] Start Date: 01/29/15 Stop Date: 01/24/16 [...] PM EDT, Aerosol, Route to Pharmacy Electronically, [id number], [facility] Start Date: 10/01/15 Status: Ordered Quantity: 3.0 Unit: each Repeat number: 4 Ventolin HFA 108 mcg/inh inhalation aerosol with adapter 2 puffs, Inhalation, Every 6 hours, PRN for wheezing, # 18 Gm, 3 Refills, Maintenance, 07/18/14 2:05:36 PM EDT, Aerosol, [facility] Start Date: 07/18/14 Status: Ordered Quantity: [...] Care Team Personnel Name: Liliana Gutierres Position: [facility] PCO Associate Professional Member Role: PCP Address: [address] [place] [address] Telecom: Name: Dara Headley Position: [facility] Surgical Coder Member Role: Clinical Informatics Physician Name: Gabi Milton RN Position: [facility] RN Member Role: Primary Care Nurse Name: Fadi ACEVES, Ren Rivera Position: [facility] Cardiology MD Member Role: Lifetime Consulting Physician Address: [address] [place] [address] Telecom: Care Team Related Persons Name: DAVI GLORIA Name: KERI QUINTANILLA Name: BRENTON KISER Insurance Providers Guarantor name: WARREN QUINTANILLA Health Plan Information #: 1 Payer: MEDICARE PART B OUTPT Member Number: NA Policy Number: NA Group Number: NA Health Plan Information #: 2 Payer: MEDEX Member Number: NA Policy Number: NA Group Number: NA
[2024-02-23 08:25] VITALS: BP 142/76; PULSE 80; O2SAT 98; BMI 25.5
--- NOTE | 2024-02-23 08:25 | A.OFFVIS_ITS ---
Vital Signs 02/23/24 08:25 Height 5 ft 4 in Weight 148 lb 12.992 oz BMI 25.5 BP 142/76 H Blood Pressure Location Rt brachial Position Sitting Pulse 80 Pulse Source Pulse Oximeter Pulse Oximetry (%) 98 Oxygen Delivery Method Room Air Intake Visit Reasons: COPD/Thyroid Lobectomy (Dr. Lee) Allergies levofloxacin [Levaquin] Allergy (Severe, Verified 02/23/24 08:31) Rash/Hives tiotropium [Spiriva with HandiHaler] Allergy (Severe, Verified 02/23/24 08:31) Rash/Hives cefpodoxime [From Vantin] Adverse Reaction (Intermediate, Verified 02/23/24 08:31) Abdominal Pain Avelox Allergy (Severe, Uncoded 02/23/24 08:31) Rash/Hives Hydrodiuril Allergy (Severe, Uncoded 02/23/24 08:31) Rash/Hives Penicillin Allergy (Severe, Uncoded 02/23/24 08:31) Rash/Hives Sulfa Drugs Allergy (Severe, Uncoded 02/23/24 08:31) Rash/Hives HPI Comments Details: The patient is a 83 y/o woman with a history of asthma. Recently she went to [place] with a necktie turner. Upon arrival her luggage was lost and she was without her Symbicort for a couple days. She did buy afls-wtz-jrvjsqf Symbicort but he came in a powdered device that she did not know how to use. Subsequently after she returned she started developing worsening shortness of breath and cough. She was given a course of azithromycin which she took without any significant improvement. Therefore, she was evaluated in the office of her primary care and was given a prednisone taper. She did have a chest x-ray and radiology imaging which was read as normal. But, we did evaluated in the office in appeared that she did have spine sign suggesting airspace disease in the lower lung zone. Clinically she feels better although she still has a nagging back discomfort. It is not pleuritic in nature. We did discuss her x-ray that she had which was within normal limits. 10/14/2021 the patient is here for a pulmonary follow-up visit. Overall the patient has been feeling a lot better. Back in July she developed an exacerbation of her asthma and also developed bronchopneumonia. If she needed antibiotics and also completed a course of prednisone. Now she is back to her baseline. She also has developed COVID a few times. She responded well to the monoclonal antibodies. I did recommend that she get her modified booster which she is now available for the fall. however, she has completed a course of rabies vaccination after having a bad her bedroom. Therefore she would like to hold off for few weeks until she is recovered from all those vaccines. She does continue with current respiratory therapy with good effect. We did review her chest x-ray from back in July 2021 demonstrating no acute disease which is reassuring. Otherwise patient is without any other complaints. 06/11/2022 The patient is here for a pulmonary follow up visit. The patient is better. She denies any new respiratory issues. Has been tolerating the symbicort and DEB. Overall the patient is doing well after developing COVID back in the fall 2021. Denies any chest pains or shortness of breath. No significant cough. Overall the patient is doing well on current therapy. The patient did have recent pulmonary function studies which we personally reviewed. No evidence of any obstruction although she does have a mild restrictive ventilatory defect. In addition to that there is a moderate diffusion impairment. We did review her last chest x-ray from July 2021 demonstrating no acute disease. No further imaging warranted. The patient is going to continue with current respiratory regimen. 04/01/2023 the patient is here for pulmonary follow-up visit. Recently she was sick with an asthma flare. Likely viral syndrome.. She did require prednisone. She also required a course of antibiotics. She is feeling better. In the meantime she was switched over from Symbicort to Breo. She does not tolerate the Breo inhaler. It does not help her and is actually making a cough and some comfortable. She would like to go back to Symbicort the work very well for her. Will go ahead and send a prescription in a [place] to get her approved since her insurance is no longer covering. Otherwise patient is doing well. Denies any significant reflux symptoms. 09/29/2023 the patient is here for pulmonary follow-up visit. Since we last saw her she did develop a respiratory infection. She started coughing. She can not see her here so she went to an urgent care. She had an x-ray that apparently was clear. She was given a course of doxycycline for bronchitis. Although still lingering. Moderate severity. She feels sometimes a croupy cough. She does bring up some phlegm although she does not always look at it. The patient also has been using the Symbicort with good effect. She has not noticed any wheezing or chest tightness. She has not had to use her rescue inhaler. On her visit today she did cough and sounds like tracheitis some degree with some croupy cough component. She also has some coarse breath sounds. Will go ahead and start her on Vantin since she is allergic to penicillins apparently however, she has never really use penicillin issue started mom was allergic. Therefore the needs to be readdress at some point. The patient will call she is no better. Otherwise she will continue her respiratory therapy and use Mucinex. Patient follow-up in 6 months. 11/04/2023 the patient is here for a pulmonary follow-up visit. Overall she is doing better. During the last visit she had been sick with bronchitis. She has given a multiple courses of antibiotics. However the Vantin did cause her to have significant abdominal discomfort. After few days she had to stop it. She did feel like it helped some. Afterwards she was switched over to azithromycin and she tolerated a lot better. She still has a cough although nonproductive in nature. This can hacky. We can try Carolina Miller to see if we can provide her some relief. He is also concerned because she was found to have a nodule that had to be biopsy because it was growing in size. And it showed suspicious cells. She is going to be seen does not general surgeon soon regarding a possible resection of thyroid area. I did reassure her that she is doing well from a respiratory status she could proceed forward. 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 However, she has been doing well from that standpoint. She has to let anesthesia know that she is at risk for laryngeal spasms so they can minimize any irritation to the vocal cords. But ultimately if she does need thyroid surgery she does not have any limitations from a pulmonary standpoint he may be able to proceed with surgery. Hopefully she can try the Tessalon Perles 1st to make sure she tolerates them as a way to control her cough afterwards. 02/23/2024 the patient is here for sick visit. Apparently about a week ago she was diagnosed with COVID. She was treated with prednisone and was given supportive care. Now she is complaining of worsening chest congestion and cough. Yellow phlegm. Moderate severity. She is concerned of having pneumo maria luisa. She is also scheduled for surgery for a thyroid nodule this will be the beginning of March. She is concerned that she is coughing a lot and she is now going to be ready for surgery. On exam she does have some rhonchi throughout primarily at the bases. She could have some component of bronchopneumonia. She has had multiple sensitivity to antibiotics. Will go ahead and start her on doxycycline since she has been able to tolerate that. The patient will call in 48 hours if she is not any better. She is also weaning that on prednisone. Will go ahead and prolonged her lower dose prednisone taper. She does have a nebulizer. Will give her a nebulizer treatment now and she will take the supplies in order to continue the nebulizer machine therapy at home. She did have a chest x-ray at [facility] already. Will hold off on further imaging studies unless she gets worse she can always call we can request a repeat x-ray. COUNTS INCLUDE 234 BEDS AT THE [facility] Medical History (Updated 02/23/24 @ 20:25 by Raheem Dixon MD) Chronic restrictive lung disease Hyperlipidemia Hypothyroidism Limb swelling Dyspnea Hiatal hernia Diabetes Asthma Social History Patient Tobacco Use Status: Never used Tobacco Review of Systems Const Reports fatigue and Denies night sweats ENT Denies change in voice, Denies lip swelling, Denies mouth pain, Reports nasal congestion, Reports nasal discharge and Denies tongue swelling Card Denies chest pain and Denies dyspnea Resp Reports chest congestion, Reports cough, Denies pain on inspiration, Denies pain with cough, Denies dyspnea and Reports wheezing GI Reports heartburn Musc Denies no additional complaints, Reports arthralgias and Reports joint swelling Neuro Denies Neuro-related abnormal movements Psych Denies no additional complaints Endo Reports fatigue Rad/Lymph Denies easy bleeding and Denies lymphadenopathy Aller/Immun Denies lip swelling, Denies tongue swelling and Reports wheezing Physical Exam Vital Signs: Last Vital Signs Pulse 80 02/23/24 08:25 BP 142/76 H 02/23/24 08:25 Pulse Ox 98 02/23/24 08:25 Oxygen Delivery Method Room Air 02/23/24 08:25 BMI result Body Mass Index 25.5 Const General: alert Orientation/consciousness: patient oriented x3 HEENT Head: Yes normal to inspection General nose exam: No nasal polyps present and No nasal discharge present Face and sinus: Yes sinuses nontender Mouth: oropharynx normal Throat: Yes posterior oropharynx normal Eyes General: appearance normal, both eyes and all related structures Neck Neck: Yes normal visual inspection, Yes full ROM and Yes no lymphadenopathy Thyroid: Thyroid normal Chest Chest palpation & inspection: normal inspection of the chest Resp Effort & Inspection: normal respiratory effort Auscultation: rhonchi, wheezes and diminished lung sounds Cardio Palpation: normal PMI Rate: regular rate Rhythm: regular rhythm Heart sounds: S1 normal heart sound present, S2 normal heart sound present, no gallops and no murmurs Peripheral pulses: Peripheral pulses 2+ throughout GI Palpation (GI): Soft to palpation, nontender and no masses Auscultation: normal bowel sounds Back/Spine/Pelvis Thoracic/Lumbar Spine: thoracic and lumbar spine normal to inspection Skin General skin exam: no rashes or lesions noted Neuro General: patient oriented x3 and no focal motor deficits Cranial nerves: Yes CN's II-XII intact bilaterally Extrem General: No calf tenderness Psych Speech and movement: Normal speech and movement present Office Procedures Nebulizer Treatment Nebulizer Treatment [id number] RX initial, or Nebulizer Subsequent Treatment Office Meds levalbuterol HCl 1.25 mg/3 mL solution for nebulization Performing Provider: Raheem Dixon MD [place] [facility] [place] [facility] Administered by: Linda Mejia LPN on 02/23/24 09:11 Dose Route Admin Location Dispensed Lot Number Expiration Date [facility] Apple Peeler Operator 1.25 mg inhalation 3 mL [id number] 04/07/25 [id number] [employer] [place] Assessment & Plan Assessment & Plan (1) Pre-op chest exam: Code(s): Z01.811 - Encounter for preprocedural respiratory examination Category: Medical (2) Bronchopneumonia: Code(s): J18.0 - Bronchopneumonia, unspecified organism Category: Medical (3) Asthma: Code(s): J45.909 - Unspecified asthma, uncomplicated Category: Medical Qualifiers: Asthma complication type: with acute exacerbation Asthma persistence: persistent Asthma severity: moderate Qualified Code(s): J45.41 - Moderate persistent asthma with (acute) exacerbation (4) Dyspnea: Code(s): R06.00 - Dyspnea, unspecified Category: Medical Qualifiers: Dyspnea type: dyspnea on exertion Qualified Code(s): R06.09 - Other forms of dyspnea (5) Hiatal hernia: Code(s): K44.9 - Diaphragmatic hernia without obstruction or gangrene Category: Medical (6) COVID-19: Code(s): U07.1 - COVID-19 Category: Medical Plan Should postponed her Thyroid surgery while still having active respiratory symptoms. We will reassess the patient in 4-6 weeks Prednisone taper start Doxycyline start nebulizer xopenex BID continue Symbicort continue Singulair DEB as needed reflux diet benzonates as needed F/U 6 months Orders: Orders AMB Nebulizer Treatment Today J40 - Bronchitis, not specified as acute or chronic, J45.40 - Moderate persistent asthma, uncomplicated Medications: New levalbuterol HCl 1.25 mg (3 mL) inhalation BID 180 mL 2RF 30 days J44.9 - Chronic obstructive pulmonary disease, unspecified prednisone PO daily; Take 2 tabs daily x 5 days, then 1 tab daily x 5 days 15 tabs 0RF 10 days doxycycline monohydrate 100 mg PO BID 28 tabs 0RF 14 days Coding Level of Care Code Est Pt Level 4 (02743) Diagnoses Pre-op chest exam Z01.811 Bronchopneumonia J18.0 Moderate persistent asthma with acute exacerbation J45.41 Asthma complication type: with acute exacerbation Asthma persistence: persistent Asthma severity: moderate Dyspnea on exertion R06.09 Dyspnea type: dyspnea on exertion Hiatal hernia K44.9 COVID-19 U07.1 CPT Codes Nebulizer Treatment - Nebulizer Treatment, initial or subsequent: 97092- Nebulizer/MDI RX initial, or Nebulizer Subsequent Treatment ([id number]) Time Spent (min) 17
== END 2024-02-23 09:47 | disposition home or self-care (01) ==
PROVIDERS: PCP Physician Assistant Medical; Visit Provider Hospitalist
DX: Z01.811 Encounter for preprocedural respiratory examination (principal); J18.0 Bronchopneumonia, unspecified organism; J45.41 Moderate persistent asthma with (acute) exacerbation; R06.09 Other forms of dyspnea; K44.9 Diaphragmatic hernia without obstruction or gangrene; U07.1 COVID-19; J45.40 Moderate persistent asthma, uncomplicated; J40 Bronchitis, not specified as acute or chronic
CPT/HCPCS: 99214

== ENCOUNTER → 2024-02-23 08:15 | Outpatient (BNVA) | payer MEDICARE, SELFPAY | PROVIDERS: PCP Physician Assistant Medical; Visit Provider Hospitalist | DX: Z01.811 Encounter for preprocedural respiratory examination (principal); J44.9 Chronic obstructive pulmonary disease, unspecified; J18.0 Bronchopneumonia, unspecified organism; J40 Bronchitis, not specified as acute or chronic; J45.41 Moderate persistent asthma with (acute) exacerbation; R06.09 Other forms of dyspnea; K44.9 Diaphragmatic hernia without obstruction or gangrene; U07.1 COVID-19 | CPT/HCPCS: 94640; 99212 ==

== ENCOUNTER 2024-04-07 14:42 | Outpatient (AMB) | payer MEDICARE, SELFPAY ==
--- NOTE | 2024-04-07 14:54 | A.OFFVIS_ITS ---
Vital Signs 04/07/24 14:55 Height 5 ft 4 in Weight 144 lb 6.444 oz BMI 24.8 BP 108/62 Blood Pressure Location Rt brachial Position Sitting Pulse 85 Pulse Source Pulse Oximeter Pulse Oximetry (%) 98 Oxygen Delivery Method Room Air Intake Visit Reasons: cough Allergies levofloxacin [Levaquin] Allergy (Severe, Verified 04/07/24 14:58) Rash/Hives tiotropium [Spiriva with HandiHaler] Allergy (Severe, Verified 04/07/24 14:58) Rash/Hives cefpodoxime [From Vantin] Adverse Reaction (Intermediate, Verified 04/07/24 14:58) Abdominal Pain Avelox Allergy (Severe, Uncoded 04/07/24 14:58) Rash/Hives Hydrodiuril Allergy (Severe, Uncoded 04/07/24 14:58) Rash/Hives Penicillin Allergy (Severe, Uncoded 04/07/24 14:58) Rash/Hives Sulfa Drugs Allergy (Severe, Uncoded 04/07/24 14:58) Rash/Hives HPI Comments Details: The patient is a 83 y/o woman with a history of asthma. Recently she went to [place] with a team guide. Upon arrival her luggage was lost and she was without her Symbicort for a couple days. She did buy [id number] Symbicort but he came in a powdered device that she did not know how to use. Subsequently after she returned she started developing worsening shortness of breath and cough. She was given a course of azithromycin which she took without any significant improvement. Therefore, she was evaluated in the office of her primary care and was given a prednisone taper. She did have a chest x-ray and radiology imaging which was read as normal. But, we did evaluated in the office in appeared that she did have spine sign suggesting airspace disease in the lower lung zone. Clinically she feels better although she still has a nagging back discomfort. It is not pleuritic in nature. We did discuss her x-ray that she had which was within normal limits. 04/01/2023 the patient is here for pulmonary follow-up visit. Recently she was sick with an asthma flare. Likely viral syndrome.. She did require prednisone. She also required a course of antibiotics. She is feeling better. In the meantime she was switched over from Symbicort to Breo. She does not tolerate the Breo inhaler. It does not help her and is actually making a cough and some comfortable. She would like to go back to Symbicort the work very well for her. Will go ahead and send a prescription in a [place] to get her approved since her insurance is no longer covering. Otherwise patient is doing well. Denies any significant reflux symptoms. 09/29/2023 the patient is here for pulmonary follow-up visit. Since we last saw her she did develop a respiratory infection. She started coughing. She can not see her here so she went to an urgent care. She had an x-ray that apparently was clear. She was given a course of doxycycline for bronchitis. Although still lingering. Moderate severity. She feels sometimes a croupy cough. She does bring up some phlegm although she does not always look at it. The patient also has been using the Symbicort with good effect. She has not noticed any wheezing or chest tightness. She has not had to use her rescue inhaler. On her visit today she did cough and sounds like tracheitis some degree with some croupy cough component. She also has some coarse breath sounds. Will go ahead and start her on Vantin since she is allergic to penicillins apparently however, she has never really use penicillin issue started mom was allergic. Therefore the needs to be readdress at some point. The patient will call she is no better. Otherwise she will continue her respiratory therapy and use Mucinex. Patient follow-up in 6 months. 11/04/2023 the patient is here for a pulmonary follow-up visit. Overall she is doing better. During the last visit she had been sick with bronchitis. She has given a multiple courses of antibiotics. However the Vantin did cause her to have significant abdominal discomfort. After few days she had to stop it. She did feel like it helped some. Afterwards she was switched over to azithromycin and she tolerated a lot better. She still has a cough although nonproductive in nature. This can hacky. We can try Carolina Miller to see if we can provide her some relief. He is also concerned because she was found to have a nodule that had to be biopsy because it was growing in size. And it showed suspicious cells. She is going to be seen does not general surgeon soon regarding a possible resection of thyroid area. I did reassure her that she is doing well from a respiratory status she could proceed forward. 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 However, she has been doing well from that standpoint. She has to let anesthesia know that she is at risk for laryngeal spasms so they can minimize any irritation to the vocal cords. But ultimately if she does need thyroid surgery she does not have any limitations from a pulmonary standpoint he may be able to proceed with surgery. Hopefully she can try the Tessalon Perles 1st to make sure she tolerates them as a way to control her cough afterwards. 02/23/2024 the patient is here for sick visit. Apparently about a week ago she was diagnosed with COVID. She was treated with prednisone and was given supportive care. Now she is complaining of worsening chest congestion and cough. Yellow phlegm. Moderate severity. She is concerned of having pneumonia. She is also scheduled for surgery for a thyroid nodule this will be the beginning of March. She is concerned that she is coughing a lot and she is now going to be ready for surgery. On exam she does have some rhonchi throughout primarily at the bases. She could have some component of bronchopneumonia. She has had multiple sensitivity to antibiotics. Will go ahead and start her on doxycycline since she has been able to tolerate that. The patient will call in 48 hours if she is not any better. She is also weaning that on prednisone. Will go ahead and prolonged her lower dose prednisone taper. She does have a nebulizer. Will give her a nebulizer treatment now and she will take the supplies in order to continue the nebulizer machine therapy at home. She did have a chest x-ray at [facility] already. Will hold off on further imaging studies unless she gets worse she can always call we can request a repeat x-ray. 04/07/2024 the patient is here for sick visit. She is having significant cough after her surgery. The surgery for the thyroid went very well. Is healing nicely. She needs to follow-up with the surgeon for postoperative visit. In meantime she started developing a croupy cough moderate severity. Congested at times. She stopped using her nebulizer because she was concerned about the open wound. I reassured her that her wound looks close now. In the meantime will go ahead and started on a Z-Sammy and also place her on cough medications in order for her to stop coughing and avoid hurting her recent surgical site. Will avoid prednisone. The patient does not have any significant wheezing right now anyway but we would want to provide good tissue healing. The patient is to call us next week to give us an update. In the meantime she is going to continue with the other respiratory medications. [facility] Medical History (Updated 04/08/24 @ 10:07 by Raheem Dixon MD) Chronic restrictive lung disease Hyperlipidemia Hypothyroidism Limb swelling Dyspnea Hiatal hernia Diabetes Asthma Social History Patient Tobacco Use Status: Never used Tobacco Review of Systems Const Denies night sweats ENT Reports as per HPI, Denies change in voice, Denies lip swelling, Denies mouth pain, Reports nasal congestion, Reports nasal discharge and Denies tongue swelling Card Denies chest pain and Denies dyspnea Resp Reports chest congestion, Reports cough, Denies pain on inspiration, Denies pain with cough, Denies dyspnea and Reports wheezing GI Reports heartburn Musc Denies no additional complaints, Reports arthralgias and Reports joint swelling Neuro Denies Neuro-related abnormal movements Psych Denies no additional complaints Rad/Lymph Denies easy bleeding and Denies lymphadenopathy Aller/Immun Denies lip swelling, Denies tongue swelling and Reports wheezing Physical Exam Vital Signs: Last Vital Signs Pulse 85 04/07/24 14:55 BP 108/62 04/07/24 14:55 Pulse Ox 98 04/07/24 14:55 Oxygen Delivery Method Room Air 04/07/24 14:55 BMI result Body Mass Index 24.8 Const General: alert Orientation/consciousness: patient oriented x3 HEENT Head: Yes normal to inspection General nose exam: No nasal polyps present and No nasal discharge present Face and sinus: Yes sinuses nontender Mouth: oropharynx normal Throat: Yes posterior oropharynx normal Eyes General: appearance normal, both eyes and all related structures Neck Neck: Yes normal visual inspection, Yes full ROM and Yes no lymphadenopathy Thyroid: Thyroid normal Chest Chest palpation & inspection: normal inspection of the chest Resp Effort & Inspection: normal respiratory effort and Actively coughing Quality: whooping Auscultation: no wheezes and diminished lung sounds Cardio Palpation: normal PMI Rate: regular rate Rhythm: regular rhythm Heart sounds: S1 normal heart sound present, S2 normal heart sound present, no gallops and no murmurs Peripheral pulses: Peripheral pulses 2+ throughout GI Palpation (GI): Soft to palpation, nontender and no masses Auscultation: normal bowel sounds Back/Spine/Pelvis Thoracic/Lumbar Spine: thoracic and lumbar spine normal to inspection Skin General skin exam: no rashes or lesions noted Neuro General: patient oriented x3 and no focal motor deficits Cranial nerves: Yes CN's II-XII intact bilaterally Extrem General: No calf tenderness Psych Speech and movement: Normal speech and movement present Assessment & Plan Assessment & Plan (1) Asthma: Code(s): J45.909 - Unspecified asthma, uncomplicated Category: Medical Qualifiers: Asthma complication type: with acute exacerbation Asthma persistence: persistent Asthma severity: moderate Qualified Code(s): J45.41 - Moderate persistent asthma with (acute) exacerbation (2) Dyspnea: Code(s): R06.00 - Dyspnea, unspecified Category: Medical Qualifiers: Dyspnea type: dyspnea on exertion Qualified Code(s): R06.09 - Other forms of dyspnea (3) Hiatal hernia: Code(s): K44.9 - Diaphragmatic hernia without obstruction or gangrene Category: Medical (4) Laryngotracheitis: Code(s): J04.2 - Acute laryngotracheitis Category: Medical Plan start Azithromycin cough medicine nebulizer xopenex BID continue Symbicort continue Singulair DEB as needed reflux diet benzonates as needed F/U 3 months Medications: New azithromycin 500 mg PO DAILY 5 tabs 0RF 5 days codeine-guaifenesin 10-100 mg/5 mL 5 mL PO Q6H PRN 200 mL 0RF cough 10 days dextromethorphan HBr 15 mg PO Q8H PRN 30 caps 0RF cough 10 days Coding Level of Care Code Est Pt Level 4 (36715) Diagnoses Moderate persistent asthma with acute exacerbation J45.41 Asthma complication type: with acute exacerbation Asthma persistence: persistent Asthma severity: moderate Dyspnea on exertion R06.09 Dyspnea type: dyspnea on exertion Hiatal hernia K44.9 Laryngotracheitis J04.2 Time Spent (min) 16
[2024-04-07 14:55] VITALS: BP 108/62; PULSE 85; O2SAT 98; BMI 24.8
--- OUTSIDE RECORDS SUMMARY | 2024-04-07 16:52 | XMS_ITS | Continuity of Care Document ---
Author Organization [facility] Address [address] [place] [address]- Care Team Providers Care Manager Documentation Name Role Phone Liliana Gutierres Primary Care Physician [id number] Date(s): 03/28/24 - 03/28/[address] [address]- Discharge Disposition: A-D/C Home Attending Physician: Ren Bowman MD Admitting Physician: Ren Bowman MD Referring Physician: Not on Staff, Referring MD Encounter Type: Disch ES Allergies, Adverse Reactions, Alerts Substance Criticality Severity Reaction Reaction Severity Status metFORMIN Active penicillins 1 Resolv ed sulfa drugs Skin Irritation : redness, sash, itching Active Levaquin Rash Active Avelox rash Active HydroDIURIL Skin Irritation : red and itch and rash Active Adhesive Bandage Skin Irrita tion: red and itchy Active Spiriva Unsure of reaction A ctive Jardiance Active 1see ED note from 07/22, family history of allergy Immunizations Given and Recorded Vaccine Date Status Refusal Reason SARS-CoV-2(COVID-19)mRNA-LNP vac([id number]) 11/14/23 Recorded SARS-CoV-2(COVID-19)mRNA-LNP vac([id number]) 05/02/23 Recorded SARS-CoV-2(COVID-19)mRNA-LNP vac(anx822) 12/05/22 Recorded pneumococcal 23-valent vaccine 10/31/23 Recorded RSV vaccine preF3, recombinant 12/19/22 Recorded influenza virus vaccine, inactivated 12/05/22 Michele rded influenza virus vaccine, inactivated 11/19/21 Michele rded influenza virus vaccine, inactivated 11/09/20 Michele rded pneumococcal 20-valent conjugate vaccine 06/20/22 Recorded [id number] 12y+ bivalent booster vax 06/20/22 Recorded [id number] 12y+ bivalent booster vax 11/13/21 Recorded rabies vaccine, human diploid cell 09/25/21 Given rabies vaccine, human diploid cell 09/18/21 Given rabies vaccine, human diploid cell 09/14/21 Given rabies vaccine, human diploid cell 09/11/21 Given Rabies Immune Globulin, Human 09/11/21 Given SARS-CoV-2 mRNA (efrvozr-[id number]-rwlnx) vax 07/14/21 Recorded SARS-CoV-2 (COVID-19) mRNA BNT-162b2 vac 03/31/20 Recorded SARS-CoV-2 (COVID-19) mRNA BNT-162b2 vac 03/10/20 Recorded tetanus-diphtheria toxoids (Td) 12/30/16 Recorded Medications acetaminophen 325 mg oral tablet 975 mg, By Mouth, Every 6 hours, Refills 0, Maintenance, 03/23/24 7:16:00 AM EST, Partial fill upon patient request if the prescription is for a schedule II opioid drug. Start Date: 03/23/24 Status: Ordered Repeat number: 1 Align = 4 mg, By Mouth, Daily, 0 Refills, Maintenance, 03/30/23 10:29:00 AM EST, Partial fill upon patientrequest if the prescription is for a schedule II opioid drug. Start Date: 03/30/23 Status: Ordered Repeat number: 1 Calcium 600 +D By Mouth, 0 Refills, Maintenance, 03/30/23 10:28:00 AM EST, Partial fill upon patient request if theprescription is for a schedule II opioid drug. Start Date: 03/30/23 Status: Ordered Repeat number: 1 levothyroxine 75 mcg (0.075 mg) oral tablet See Instructions, 1 tablet By Mouth 5 times weekly, # 65 each, 3 Refills, Maintenance, 10/13/23 9:54:00 AM EDT, Tablet, [facility]/pharmacy #[id number], Partial fill upon patient request if the [...] 8:04:00 AM EDT, Route to Pharmacy Electronically, [id number], 163, cm, 07/30/23 8:30:00 EDT, Height, 70.4, kg, 01/31/23 11:49:00 EST, Dry Weight Start Date: 09/20/23 Status: Ordered Quantity: 90.0 Unit: tablet Repeat number: 1 Mounjaro 2.5 mg/0.5 mL subcutaneous solution See Instructions, INJECT 2.5MG SUBCUTANEOUSLY ONCE WEEKLY ROTATE INJECTION SITES, # 2 Unknown, 11 Refills, Maintenance, 02/16/24 4:39:00 PM EST, [id number], 162, cm, 02/15/24 13:56:00 EST, Height,67.4, kg, 02/15/24 13:56:00 EST, Dry Weight Start Date: 02/16/24 Status: Ordered Quantity: 2.0 Unit: Unknown Repeat number: 1 [place]-3 oral capsule 0 Refills, Maintenance, 03/30/23 10:29:00 [...] Date: 10/07/22 Status: Ordered Repeat number: 1 PreserVision 0 Refills, Maintenance, [...] 9:41:00 AM EDT, Route to Pharmacy Electronically, [facility]/pharmacy #[id number], Partial fill upon patient request if [...] tablet, 3 Refills, Maintenance, 01/29/15 7:49:00AM EST, [facility] Start Date: 01/29/15 Stop Date: 01/24/16 Status: Ordered Quantity: 90.0 Unit: tablet Repeat number: 4 Symbicort 160mcg/4.5mcg Inhaler 2, puffs, Inhalation, 2 times a day, rinse mouth and throat after use ICD 10 =J45.909, # 3 each, Refills 3, Tot. Refills 3, Maintenance, 10/01/15 1:20:00 PM EDT, Aerosol, Route to Pharmacy Electronically, [id number], [facility] Start Date: 10/01/15 Status: Ordered Quantity: 3.0 Unit: each Repeat number: 4 Ventolin HFA 108 mcg/inh inhalation aerosol with adapter 2 puffs, Inhalation, Every 6 hours, PRN for wheezing, # 18 Gm, 3 Refills, Maintenance, 07/18/14 2:05:36 PM EDT, Aerosol, [facility] Start Date: 07/18/14 Status: Ordered Quantity: 18.0 Unit: g Repeat number: 4 Vitamin C By Mouth, Daily, 0 Refills, Maintenance, 03/13/24 10:39:00 AM EST, Partial fill upon patient request if the prescription is for a schedule II opioid drug. Start Date: 03/13/24 Status: Ordered Repeat number: 1 Vitamin D3 = 2,000 International_Units, By Mouth, [...] Hiatal hernia Confirmed Active Hypothyroidism Confirmed Active LPRD (laryngopharyngeal reflux disease) Confirmed Active Mixed hyperlipidemia Confirmed Active Dry senile macular degeneration Confirmed Active Osteoporosis Confirmed Active Diabetic retinopathy Confirmed Active Thyroid nodule Confirmed Active Type 2 diabetes mellitus without complication, without long-term current use of insulin Confirmed Active 1Problem added by Discern Expert Results Radiology Reports * Exam Date Time Procedure Performing Provider Status 03/28/24 3:12 PM US Doppler Ext Lower Venous Bilat Sindy Saunders; Auth (Verified) Notes: (US Doppler Ext Lower Venous Bilat) Reason For Exam: Pain in limb;Other: RESULT: US Doppler Ext Lower Venous Bilat US Doppler Ext Lower Venous Bilat Hx of Present Illness: Ongoing bilateral lower extremity swelling x1 month, pt reports more tightnes to lower extremities starting yesterday. Recent thyroid surgery 2 12. Denies sob chest pain.; Reason: Other:; Pain in limb; Clinical Question(s): Thrombosis COMPARISON: Multiple priors including 12/24/2020. IMAGING TECHNIQUE: Ultrasound of the veins from the groin through the calf was performed using grayscale, color, and spectral Doppler ultrasound assessing for complete compressibility and normal flowcharacteristics. FINDINGS: RIGHT LOWER EXTREMITY: Common femoral vein: Patent. No thrombosis. Femoral vein: Patent. No thrombosis. Popliteal vein: Patent. No thrombosis. Gastrocnemius veins: The visualized portions are patent without evidence of thrombosis. Peroneal veins: The visualized portions are patent without evidence of thrombosis. Posterior tibial veins: The visualized portions are patent without evidence of thrombosis. LEFT LOWER EXTREMITY: Common femoral vein: Patent. No thrombosis. Femoral vein: Patent. No thrombosis. Popliteal vein: Patent. No thrombosis. Gastrocnemius veins: The visualized portions are patent without evidence of thrombosis. Peroneal veins: The visualized portions are patent without evidence of thrombosis. Posterior tibial veins: The visualized portions are patent without evidence of thrombosis. OTHER FINDINGS: There is diffuse calf edema. IMPRESSION: No evidence of deep venous thrombosis. WSN: [id number] Ordering Physician: Ren Bowman Dictated By: Macario Thomas MD Dictated Date/Time: 03/28/24 5:27 pm Reviewed By: Macario Thomas MD Signed By: Macario Thomas MD Signed Date/Time: 03/28/24 5:27 pm Transcribed By: CECELIA Transcribed Date/Time: 03/28/24 5:24 pm Vital Signs Most recent to oldest [Reference Range]: 1 2 3 Height 163 cm (03/28/24 5:49 PM) 163 cm (03/28/24 12:29 PM) 163 cm (03/28/24 10:39 AM) Weight 66.0 kg (03/28/24 5:49 PM) 66.0 kg (03/28/24 12:29 PM) 66.0 kg (03/28/24 10:39 AM) Oxygen Saturation [94-100 %] 97 % (03/28/24 5:49 PM) 95 % (03/28/24 12:29 PM) 98 % (03/28/24 10:39 AM) Pulse Rate [55-90 bpm] 92 bpm *H* (03/28/24 5:49 PM) 92 bpm *H* (03/28/24 12:29 PM) 87 bpm (03/28/24 10:39 AM) Body Mass Index [18.5-24.99 kg/m2] 24.84 kg/m2 (03/28/24 5:49 PM) 24.84 kg/m2 (03/28/24 12:29 PM) Blood Pressure [90-138/55-84 mm Hg] 137/83mm Hg (03/28/24 5:49 PM) 125/73mm Hg (03/28/24 12:29 PM) 144/67mm Hg *H* (03/28/24 10:39 AM) Respiratory Rate [16-30 br/min] 18 br/min (03/28/24 5:49 PM) 16 br/min (03/28/24 12:29 PM) 15 br/min *L* (03/28/24 10:39 AM) Temperature [96.8-100.4 DegF] 97.6 DegF (03/28/24 12:29 PM) 98.7 DegF (03/28/24 10:39 AM) Mode of Delivery (Oxygen) Room air (03/28/24 5:49 PM) Room air (03/28/24 12:29 PM) Room air (03/28/24 10:39 AM) Blood pressure sites Arm, left (03/28/24 5:49 PM) Arm, left (03/28/24 12:29 PM) Arm, left (03/28/24 10:39 AM) Temperature Route Oral (03/28/24 12:29 PM) Temporal (03/28/24 10:39 AM) Dry Weight 66.0 kg (03/28/24 5:49 PM) 66.0 kg (03/28/24 12:29 PM) 66.0 kg (03/28/24 10:39 AM) Weight Obtained Via Standing scale (03/28/24 10:39 AM) Dry Weight Obtained Via Standing scale (03/28/24 10:39 AM) Social History Social History Type Response Smoking Status Never smoker; Tobacc o user in household: No entered on: 01/15/14 Sex Sex Representation Female (finding) Note * Colby ACEVES, Ren Valente: PERFORM Event Display: Patient Education Leaflets Authored Date: [id number] Low-Salt Diet ?? [id number] Low-Salt Diet This diet removes foods that are high in salt. It also limits the amount of salt you use when cooking. It is most often used for people with high blood pressure, fluid retention (edema), and kidney, liver, or heart disease. Table salt has the mineral sodium. Your body needs sodium to work normally. But too much sodium canmake your health problems worse. Your healthcare provider advises a low-salt (low-sodium) diet for you. Your total daily allowed amount of salt is??1,500 to 2,300??milligrams (mg). This is less than 1 teaspoon of table salt. This means you can have only about??500 to 700??mg of sodium at each meal.??People with certain health problems should limit salt intake to the lower end of the advised range. ?? When you cook, don???t add much salt. If you can cook without using salt, even better. Don???t add salt to your food at the table. Use herbs and spices to flavor your food. When shopping, read food labels. Salt is often called sodium on the label. Choose foods that are salt-free, low salt, or very low salt. Note that foods with reduced salt may not??lower your salt intake enough. Beans, legumes, and nuts OK: Dry beans, split peas, lentils, canned beans with no added salt, and unsalted nuts Avoid: Regular (salt added) canned beans and salted nuts ?? Breads and grains OK: Low-sodium breads, rolls, cereals, cakes, low-salt crackers, matzo crackers, oats, rice, pasta with no salt added, and unsalted popcorn Avoid: Salted crackers, pretzels, tortilla chips, popcorn, and other salty snacks, as well as Lebanese toast, pancakes, muffins, regular bread, instant oatmeal packets, and prepackaged seasoned rice orpasta blends ?? Dairy OK: Milk, chocolate milk, hot chocolate mix, low-salt cheeses, and yogurt Avoid: Processed cheese and cheese spreads, Roquefort, Camembert, cottage cheese, buttermilk, and instant breakfast drinks ?? Desserts OK: Ice cream, frozen yogurt, juice bars, gelatin, sugar, honey, jelly, and hard candy (though be mindful of added sugars in these foods) Avoid: Most pies, cakes, and cookies made with salt, and instant pudding ?? Drinks OK: Tea, coffee, fizzy (carbonated) drinks, and juices Avoid: Flavored coffees, electrolyte replacement drinks, and sports drinks ?? Meats OK: All fresh meat, fish, poultry, low-salt tuna, eggs, and egg substitute Avoid: Smoked, pickled, brine-cured, or salted meats and fish, and processed poultry injected with salt or marinade (this??includes marshall, chipped beef, jerky, corned beef, hot dogs, deli meats, ham,kosher meats, salt pork, sausage, canned tuna, salted codfish, smoked??salmon, kevin, sardines, and anchovies) ?? Seasonings OK: Most seasonings are okay and good substitutes for salt include fresh herb blends, hot sauce, lemon, garlic, castillo, vinegar, dry mustard, parsley, cilantro, horseradish, tomato paste, low-salt mayonnaise, unsalted butter and margarine, cream cheese, vegetable and olive oil, cream, low-salt saladdressing, and gravy Avoid: Regular ketchup, relishes, pickles, soy sauce, teriyaki sauce, Worcestershire sauce, BBQ sauce, tartar sauce, meat tenderizer, chili sauce, regular gravy, regular salad dressing, and salted butter ?? Soups OK: Low-salt soups and broths made with allowed foods Avoid: Bouillon cubes, soups with smoked or salted meats, and regular soup and broth ?? Vegetables OK: Most vegetables are okay, including canned vegetables with no salt added, plain frozen vegetables, and low-salt tomato and vegetable juices Avoid: Sauerkraut and other brined vegetables, pickles and pickled vegetables, tomato juice, olives, canned vegetables with salt, frozen vegetables with sauces, and salted potato chips ?? Last Reviewed Date: 2021 ?? 9148-0389 [employer]. All rights reserved. This information is not intended as a substitute for professional medical care. Always follow your healthcare professional's instructions. ?? * Colby ACEVES, Ren Valente: PERFORM Event Display: Patient Education Leaflets Authored Date: [id number] Leg Swelling in Both Legs ?? [id number] Leg Swelling in Both Legs Swelling of the feet, ankles, and legs is called edema. It's caused by extra fluid that has collected in the tissues. Extra fluid in the body settles in the lowest part because of gravity. This is why the legs and feet are most affected. Some of the causes for edema include: ??? Disease of the heart, such as congestive heart failure ??? Standing or sitting for long periodsof time ??? Infection of the feet or legs ??? Blood pooling in the veins of your legs (venous insufficiency) when the veins have less elasticity ??? Dilated veins in your lower leg (varicose veins) ??? Poor drainage of the lymphatic system ??? Some medicines, including some hormones such as control pills, some blood pressure medicines such as calcium channel blockers, steroids, and some antidepressants such as MAO inhibitors and tricyclics ??? Menstrual periods that cause you to retain fluids ??? Many types of kidney disease ??? Liver failure??or cirrhosis ??? , in which some swelling is normal, but a sudden increase in leg swelling or weight gain can be a sign of a dangerouscomplication of called eclampsia ??? Poor nutrition ??? Thyroid disease Treatment will depend on what is causing the swelling in your legs. Your healthcare provider may prescribe water pills (diuretics) to get rid of the extra fluid. Home care Follow these guidelines when caring for yourself at home: ??? Keep your legs up while lying or sitting. ??? If infection, injury, or recent surgery is causing the swelling, stay off your legs as muchas possible until symptoms get better. ??? If your healthcare provider says that your leg swelling is caused by venous insufficiency or varicose veins, don't sit or platinum smith one place for long periods of time. Take breaks and walk about every few hours. Brisk walking is a good exercise. It helps circulate the blood that has collected in your leg. Talk with your provider about using support stockings to stop daytime leg swelling. ??? If your provider says that heart disease is causing your leg swelling, follow a low-salt diet to stop extra fluid from staying in your body. You may also need medicine. ?? Follow-up care Follow up with your healthcare provider, or as advised. ?? When to get medical advice Call your healthcare provider right away if any of these occur: ??? Swelling in both legs or ankles that gets worse ??? Belly (abdominal) swelling ??? Redness, warmth, or swelling in 1 leg ??? Fever of 100.4??F (38??C) or higher,??or as advised by your provider ??? Yellow color to your skin or eyes ??? Rapid, unexplained weight gain ??? Having to sleep upright or use more pillows ? Call 911 Call 911 or get medical care right away if you have: ??? New shortness of breath or chest pain ??? Worsening shortness of breath or chest pain? Last Reviewed Date: 2021 ?? [id number] [employer]. All rights reserved. This information is not intended as a substitute for professional medical care. Always follow your healthcare professional's instructions. ?? Patient Care team information Care Team Personnel Name: Rk Rivera RN Position: [facility] RN Member Role: Primary Care Nurse Name: Liliana Gutierres Position: [facility] PCO Associate Professional Member Role: PCP Address: [place] [address]- Telecom: Name: Dara Headley Position: [facility] Kiln Firer Helper Member Role: Biophysics Scientist Name: Gabi Milton RN Position: [facility] RN Member Role: Primary Care Nurse Name: Ren Aponte MD Position: [facility] Cardiology MD Member Role: [employer] Consulting Physician Address: [address] [place] [id number]- Telecom: Care Team Related Persons Name: DAVI GLORIA Name: KERI QUINTANILLA Name: BRENTON KISER Insurance Providers Guarantor name: WARREN QUINTANILLA Health Plan Information #: 1 Payer: MEDICARE PART B OUTPT Member Number: [id number] Policy Number: NA Group Number: NA Health Plan Information #: 2 Payer: [employer]EX Member Number: [id number] Policy Number: NA Group Number: NA
--- OUTSIDE RECORDS SUMMARY | 2024-04-07 16:52 | XMS_ITS | Continuity of Care Document ---
Author Organization [facility] Address [address] [place] [address]- Care Team Providers Care Digital Content Producer Name Role Phone Liliana Gutierres Primary Care Physician Encounter [facility] Date(s): 03/13/24 - 03/20/24 [facility] [address], [place] [address] Attending Physician: Ti Summers MD Referring Physician: Luisa Lee MD Encounter Type: Office Visit Allergies, Adverse Reactions, Alerts Substance Criticality Severity [...] Recorded Vaccine Date Status Refusal Reason SARS-CoV-2(COVID-19)mRNA-LNP vac([id number]) 11/14/23 Recorded SARS-CoV-2(COVID-19)mRNA-LNP vac(jar327) 05/02/23 Recorded SARS-CoV-2(COVID-19)mRNA-LNP vac(vok348) 12/05/22 Recorded pneumococcal 23-valent vaccine 10/31/23 Recorded RSV vaccine preF3, recombinant 12/19/22 Recorded influenza virus vaccine, inactivated 12/05/22 Michele rded influenza virus vaccine, inactivated 11/19/21 Michele rded influenza virus vaccine, inactivated 11/09/20 Michele rded pneumococcal 20-valent conjugate vaccine 06/20/22 Recorded [id number] 12y+ bivalent booster vax 06/20/22 Recorded [id number] 12y+ bivalent booster vax 11/13/21 Recorded rabies vaccine, human diploid cell 09/25/21 Given rabies vaccine, human diploid cell 09/18/21 Given rabies vaccine, human diploid cell 09/14/21 Given rabies vaccine, human diploid cell 09/11/21 Given Rabies Immune Globulin, Human 09/11/21 Given SARS-CoV-2 mRNA (xntsicj-zihj-todvq) vax 07/14/21 Recorded SARS-CoV-2 (COVID-19) mRNA BNT-162b2 vac 03/31/20 Recorded SARS-CoV-2 (COVID-19) mRNA BNT-162b2 vac 03/10/20 Recorded tetanus-diphtheria toxoids (Td) 12/30/16 Recorded Medications Align = 4 mg, By Mouth, Daily, 0 Refills, Maintenance, 03/30/23 10:29:00 AM EST, Partial fill upon patientrequest if the prescription is for a schedule II opioid drug. Start Date: 03/30/23 Status: Ordered Repeat number: 1 betamethasone-clotrimazole 0.05%-1% [...] Refills, Maintenance, 10/13/23 9:54:00 AM EDT, Tablet, [facility]/pharmacy #[id number], Partial fill upon patient [...] 8:04:00 AM EDT, Route to Pharmacy Electronically, [id number], 163, cm, 07/30/23 8:30:00 EDT, Height, 70.4, kg, 01/31/23 11:49:00 EST, Dry Weight Start Date: 09/20/23 Status: Ordered Quantity: 90.0 Unit: tablet Repeat number: 1 Mounjaro 2.5 mg/0.5 mL subcutaneous solution See Instructions, INJECT 2.5MG SUBCUTANEOUSLY ONCE WEEKLY ROTATE INJECTION SITES, # 2 Unknown, 11 Refills, Maintenance, 02/16/24 4:39:00 PM EST, [facility] 424[facility], 162, cm, 02/15/24 13:56:00 EST, Height,67.4, kg, 02/15/24 13:56:00 EST, Dry Weight Start Date: 02/16/24 Status: Ordered Quantity: 2.0 Unit: Unknown Repeat number: 1 nateglinide 120 mg oral tablet 1 tablet, By Mouth, 3 times a day before meals, # 270 tablet, 3 Refills, Maintenance, 09/06/23 7:13:00 AM EDT, [facility] 91993, 163, cm, 07/30/23 8:30:00 EDT, Height, 70.4, kg, 01/31/23 11:49:00 EST, Dry Weight Start Date: 09/06/23 Status: Ordered Quantity: 270.0 Unit: tablet Repeat number: 1 [place]-3 oral capsule 0 Refills, Maintenance, 03/30/23 10:29:00 [...] 9:41:00 AM EDT, [id number] Partial fill upon patient request if the [...] tablet, 3 Refills, Maintenance, 01/29/15 7:49:00AM EST, [facility] Start Date: 01/29/15 Stop Date: 01/24/16 Status: Ordered Quantity: 90.0 Unit: tablet Repeat number: 4 Symbicort 160mcg/4.5mcg Inhaler 2, puffs, Inhalation, 2 times a day, rinse mouth and throat after use ICD 10 =J45.909, # 3 each, Refills 3, Tot. Refills 3, Maintenance, 10/01/15 1:20:00 PM EDT, Aerosol, Route to Pharmacy Electronically, [id number], [facility] Start Date: 10/01/15 Status: Ordered Quantity: 3.0 Unit: each Repeat number: 4 Ventolin HFA 108 mcg/inh inhalation aerosol with adapter 2 puffs, Inhalation, Every 6 hours, PRN for wheezing, # 18 Gm, 3 Refills, Maintenance, 07/18/14 2:05:36 PM EDT, Aerosol, [facility] Start Date: 07/18/14 Status: Ordered Quantity: [...] Confirmed Active 1Problem added by Discern Expert Vital Signs Most recent to oldest [Reference Range]: 1 Height 163 cm (03/13/24 10:21 AM) Weight 75 kg (03/13/24 10:21 AM) Oxygen Saturation [94-100 %] 100 % (03/13/24 10:21 AM) Pulse Rate [55-90 bpm] 94 bpm *H* (03/13/24 10:21 AM) Body Mass Index [18.5-24.99 kg/m2] 28.23 kg/m2 *H* (03/13/24 10:21 AM) Blood Pressure [90-138/55-84 mm Hg] 123/ 82mm Hg (03/13/24 10:21 AM) Respiratory Rate [16-30 br/min] 14 br/mi n *L* (03/13/24 10:21 AM) Mode of Delivery (Oxygen) Room air (03/13/24 10:21 AM) Blood pressure sites Arm, right (03/13/24 10:21 AM) Weight Obtained Via Standing scale (03/13/24 10:21 AM) Social History Social History Type Response Smoking Status Never smoker; Tobacc o user in household: No entered on: 01/15/14 Sex Sex Representation Female (finding) EKG study * Event Display: ECG 12-Lead Authored Date: Please click on pdf link to open report * Event Display: ECG 12-Lead Authored Date: Ventricular Rate: 84 BPM Atrial Rate: 84 BPM P-R Interval: 200 ms QRS Duration: 66 ms Q-T Interval: 338 ms QTC Calculation(Bazett): 399 ms P Preston: 50 degrees R Preston: -11 degrees T Preston: 15 degrees Normal sinus rhythm Low voltage QRS Poor R wave progression Inferior infarct , age undetermined Abnormal ECG When compared with ECG of 10-Oct-2021 15:14, Questionable change in QRS duration Questionable change in initial forces of Anteroseptal leads Confirmed by MAGDA WILLS MD ([id number]) on 03/13/2024 12:44:44 PM Sylvester: MAGDA WILLS MD Patient Care team information Care Team Personnel Name: Liliana Gutierres Position: [facility] PCO Associate Professional Member Role: PCP Address: [address] [place] [address] Telecom: Name: Dara Headley Position: [facility] MAGALIS Pipelines Laborer Member Role: Unix Architect Name: Gabi Milton RN Position: [facility] RN Member Role: Primary Care Nurse Name: Ren Aponte MD Position: [facility] Cardiology MD Member Role: Lifetime Consulting Physician Address: [address] [place] [address] Telecom: Care Team Related Persons Name: DAVI GLORIA Name: KERI QUINTANILLA Name: BRENTON KISER Insurance Providers Guarantor name: WARREN QUINTANILLA Health Plan Information #: 2 Payer: MEDEX Member Number: [id number] Policy Number: NA Group Number: NA Health Plan Information #: 3 Payer: MEDEX Member Number: [id number] Policy Number: NA Group Number: NA Health Plan Information #: 1 Payer: MEDICARE PART B OUTPT Member Number: [id number] Policy Number: NA Group Number: NA Health Plan Information #: 4 Payer: MEDICARE PART B OUTPT Member Number: [id number] Policy Number: NA Group Number: NA
--- OUTSIDE RECORDS SUMMARY | 2024-04-07 16:52 | XMS_ITS | Patient Health Record ---
Author Organization [facility] Address [address] [place] [address] Care Team Providers Care Director Of Plant Operations Name Role Phone Liliana Dyson Primary Care Provider Unavailab le Allergies Allergen (clinical drug ingredient) Drug/Non Drug Allergy documented on EMR Reaction Allergy Type Onset Date Status Hydrodiuril (uncoded) Rash Allergy Active Substance with sulfonamide structure and antibacterial mechanism of action (substance) Sulfa (uncoded) Rash Allergy Active moxifloxacin Avelox Burning/redness in face Drug Allergy Active Levaquin Burning/ redness in face Drug Allergy Active tiotropium Spiriva HandiHaler dry mouth Drug Allergy Active Reason For Referral No Information Medications Medication SIG (Take, Route, Frequency, Duration) Notes Start Date End Date Status Montelukast Sodium 10 MG 1 tablet Orally Once a day Active Align - as directed Orally N ot-Taking Simvastatin 20 MG 1 tablet at bedtime Orally Once a day Not-Taking [place] 3 Active Vitamin D3 Active Atorvastatin Calcium 20 MG 1 tablet Orally Once a day Active Levothyroxine Sodium 75 MCG 1 tablet in the morning on an empty stomach Orally Once a day Active Lisinopril 10 MG 1 tablet Orally Once a day Active One Touch Delica Lancets use as directed to test blood glucose once a day Active Symbicort 160-4.5 MCG/ACT 2 puffs Inhalation Twice a day Active Omeprazole 20 MG 1 capsule 30 minutes before morning meal Orally Once a day Active PreserVision AREDS - as directed Orally multiple vitamins and minerals 2 tab(s) orally once a day Active Nateglinide 60 MG 1 tablet before meals Orally Two times a day Active Problems Problem Type SNOMED Code ICD Code Onset Dates Problem Status W/U Status Risk Notes Problem 991118284 care home (curre nt) use of insulin (Z79.4) Active confirmed Problem 92374539 Type 2 diabetes mellitus with mild nonproliferative diabetic retinopathy without macular edema, bilateral (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) Active confirmed Problem 199593276 Gastrocnemius equinus of left lower extremity (M21.6X2) Active confirmed Plan Of Treatment Pending Test Test Name Order Date X ray : Foot, left 3v 09/12/2020 Insurance Providers Payer Name Payer Address Payer Phone Subscriber Number Group Number Insured Name Patient Relationship to Insured Coverage Start Date Coverage End Date Medicare of [place] [address] [place] [phone] [id number] Suyapa Stein Self - patient is the insured Medex Blue Planex [address] [place] [phone] [id number] Katharine Steinith Self - patient is the insured Medical (General) History Medical History History ICD Code Thyroid nodules GERD and hiatal hernia Hypercholesterolemia Photosensitivity/ Rosacea Osteoarthritis multiple joints Type 2 Diabetes Mellitus with retinopath y COVID - Feb 2019 COVID Vaccine - Pfizer x 5 Essential Hypertension Hypothyroidism Splenic artery aneurysm Surgical History Surgery Date(Month/Year) Left index finger s/p break Fibroids x2 surgeries Retina Surgery-lazer Tonsillectomy/Adenoids Fractional D&C, hysteroscopy and submuco us myomectomy x3 ( ) 02/24/2012 L thumb stitches 12/2016 Hospitalization History Reason Date(Month/Year) Cellulitis of the right foot 2022 [facility] - [facility] 6 Atypical Chest Pain-- GERD e tiology, no stress test done, negative cardiac markers 04/2011
--- OUTSIDE RECORDS SUMMARY | 2024-04-07 16:52 | XMS_ITS | Continuity of Care Document ---
Author Organization [facility] Address [address] [place] [address]- Care Team Providers Care Veterinary Science Teacher Name Role Phone Liliana Gutierres Primary Care Physician Encounter [facility] Date(s): 02/25/24 - 03/26/24 [facility] [address] [place] [address] Encounter Type: Triage Allergies, [...] Recorded Vaccine Date Status Refusal Reason SARS-CoV-2(COVID-19)mRNA-LNP vac(zbz046) 11/14/23 Recorded SARS-CoV-2(COVID-19)mRNA-LNP vac(eom571) 05/02/23 Recorded SARS-CoV-2(COVID-19)mRNA-LNP vac(qlr696) 12/05/22 Recorded pneumococcal 23-valent vaccine 10/31/23 Recorded RSV vaccine preF3, recombinant 12/19/22 Recorded influenza virus vaccine, inactivated 12/05/22 Michele rded influenza virus vaccine, inactivated 11/19/21 Michele rded influenza virus vaccine, inactivated 11/09/20 Michele rded pneumococcal 20-valent conjugate vaccine 06/20/22 Recorded [id number] 12y+ bivalent booster vax 06/20/22 Recorded [id number] 12y+ bivalent booster vax 11/13/21 Recorded rabies vaccine, human diploid cell 09/25/21 Given rabies vaccine, human diploid cell 09/18/21 Given rabies vaccine, human diploid cell 09/14/21 Given rabies vaccine, human diploid cell 09/11/21 Given Rabies Immune Globulin, Human 09/11/21 Given SARS-CoV-2 mRNA (avamite-uwry-foyfz) vax 07/14/21 Recorded SARS-CoV-2 (COVID-19) mRNA BNT-162b2 [...] Refills, Maintenance, 10/13/23 9:54:00 AM EDT, Tablet, [facility]/pharmacy #[id number], Partial fill upon patient request if the [...] 8:04:00 AM EDT, Route to Pharmacy Electronically, [facility] 81938, 163, cm, 07/30/23 8:30:00 EDT, Height, 70.4, kg, 01/31/23 11:49:00 EST, Dry Weight Start Date: 09/20/23 Status: Ordered Quantity: 90.0 Unit: tablet Repeat number: 1 Mounjaro 2.5 mg/0.5 mL subcutaneous solution See Instructions, INJECT 2.5MG SUBCUTANEOUSLY ONCE WEEKLY ROTATE INJECTION SITES, # 2 Unknown, 11 Refills, Maintenance, 02/16/24 4:39:00 PM EST, [facility]ORE 57138, 162, cm, 02/15/24 13:56:00 EST, Height,67.4, kg, 02/15/24 13:56:00 EST, Dry Weight Start Date: 02/16/24 Status: Ordered Quantity: 2.0 Unit: Unknown Repeat number: 1 [place]-3 oral capsule 0 Refills, Maintenance, 03/30/23 10:29:00 [...] tablet, Refills 3, Tot. Refills 3, Maintenance, 4/22/24 9:41:00 AM EDT, Route to Pharmacy Electronically, [facility]/pharmacy #[id number], Partial fill upon patient [...] tablet, 3 Refills, Maintenance, 01/29/15 7:49:00AM EST, [facility] Start Date: 01/29/15 Stop Date: 01/24/16 Status: Ordered Quantity: 90.0 Unit: tablet Repeat number: 4 Symbicort 160mcg/4.5mcg Inhaler 2, puffs, Inhalation, 2 times a day, rinse mouth and throat after use ICD 10 =J45.909, # 3 each, Refills 3, Tot. Refills 3, Maintenance, 10/01/15 1:20:00 PM EDT, Aerosol, Route to Pharmacy Electronically, [id number], [facility] Start Date: 10/01/15 Status: Ordered Quantity: 3.0 Unit: each Repeat number: 4 Ventolin HFA 108 mcg/inh inhalation aerosol with adapter 2 puffs, Inhalation, Every 6 hours, PRN for wheezing, # 18 Gm, 3 Refills, Maintenance, 07/18/14 2:05:36 PM EDT, Aerosol, [facility] Start Date: 07/18/14 Status: Ordered Quantity: [...] Confirmed Active 1Problem added by Discern Expert Social History Social History Type Response Smoking Status Never smoker; Tobacc o user in household: No entered on: 01/15/14 Sex Sex Representation Female (finding) Patient Care team information Care Team Personnel Name: Rk Rivera RN Position: [facility] RN Member Role: Primary Care Nurse Name: Liliana Gutierres Position: [facility] PCO Associate Professional Member Role: PCP Address: [address] [place] [address] Telecom: Name: Dara Headley Position: [facility] Juice Packaging Machines Setter Member Role: Coffee Weigher Name: Gabi Milton RN Position: [facility] RN Member Role: Primary Care Nurse Name: Ren Aponte MD Position: [facility] Cardiology MD Member Role: Lifetime Consulting Physician Address: [address] [place] [address] Telecom: Care Team Related Persons Name: DAVI GLROIA Name: KERI QUINTANILLA Name: BRENTON KISER Insurance Providers Guarantor name: WARREN QUINTANILLA Health Plan Information #: 1 Payer: MEDICARE PART B OUTPT Member Number: NA Policy Number: NA Group Number: NA Health Plan Information #: 2 Payer: MEDEX Member Number: NA Policy Number: NA Group Number: NA
--- OUTSIDE RECORDS SUMMARY | 2024-04-07 16:52 | XMS_ITS | Continuity of Care Document ---
Author Organization [facility] ter Address [address] [place] [address]- Care Team Providers Care Center Medical Director Name Role Phone Liliana Gutierres Primary Care Physician [place] [facility] [place] [id number] Date(s): 03/22/24 - 03/23/[address] [address]- Discharge Disposition: A-D/C Home Attending Physician: Luisa Lee MD Admitting Physician: Luisa Lee MD Referring Physician: Luisa Lee MD Encounter Type: Disch Daystay Allergies, Adverse Reactions, Alerts Substance Criticality Severity Reaction Reaction Severity Status penicillins 1 Resolv ed Spiriva Unsure of reaction A ctive Jardiance Active sulfa drugs Skin Irritation : redness, sash, itching Active Levaquin Rash Active Avelox rash Active HydroDIURIL Skin Irritation : red and itch and rash Active Adhesive Bandage Skin Irrita tion: red and itchy Active metFORMIN Active 1see ED note from 07/22, family history of allergy Immunizations Given and Recorded Vaccine Date Status Refusal Reason SARS-CoV-2(COVID-19)mRNA-LNP vac(occ828) 11/14/23 Recorded SARS-CoV-2(COVID-19)mRNA-LNP vac(ogn075) 05/02/23 Recorded SARS-CoV-2(COVID-19)mRNA-LNP vac(ers042) 12/05/22 Recorded pneumococcal 23-valent vaccine 10/31/23 Recorded RSV vaccine preF3, recombinant 12/19/22 Recorded influenza virus vaccine, inactivated 12/05/22 Michele rded influenza virus vaccine, inactivated 11/19/21 Michele rded influenza virus vaccine, inactivated 11/09/20 Michele rded pneumococcal 20-valent conjugate vaccine 06/20/22 Recorded [id number] 12y+ bivalent booster vax 06/20/22 Recorded [id number] 12y+ bivalent booster vax 11/13/21 Recorded rabies vaccine, human diploid cell 09/25/21 Given rabies vaccine, human diploid cell 09/18/21 Given rabies vaccine, human diploid cell 09/14/21 Given rabies vaccine, human diploid cell 09/11/21 Given Rabies Immune Globulin, Human 09/11/21 Given SARS-CoV-2 mRNA ([id number]) vax 07/14/21 Recorded SARS-CoV-2 (COVID-19) mRNA BNT-162b2 [...] Refills, Maintenance, 10/13/23 9:54:00 AM EDT, Tablet, [id number], Partial fill upon patient request if [...] 8:04:00 AM EDT, Route to Pharmacy Electronically, [id number], 163, cm, 07/30/23 8:30:00 EDT, Height, 70.4, kg, 01/31/23 11:49:00 EST, Dry Weight Start Date: 09/20/23 Status: Ordered Quantity: 90.0 Unit: tablet Repeat number: 1 Mounjaro 2.5 mg/0.5 mL subcutaneous solution See Instructions, INJECT 2.5MG SUBCUTANEOUSLY ONCE WEEKLY ROTATE INJECTION SITES, # 2 Unknown, 11 Refills, Maintenance, 02/16/24 4:39:00 PM EST, [id number], 162, cm, 02/15/24 13:56:00 EST, Height,67.4, kg, 02/15/24 13:56:00 EST, Dry Weight Start Date: 02/16/24 Status: Ordered Quantity: 2.0 Unit: Unknown Repeat number: 1 Orestes-3 oral capsule 0 Refills, Maintenance, 03/30/23 10:29:00 [...] 9:41:00 AM EDT, Route to Pharmacy Electronically, [id number], Partial fill upon [...] tablet, 3 Refills, Maintenance, 01/29/15 7:49:00AM EST, [facility] Start Date: 01/29/15 Stop Date: 01/24/16 Status: Ordered Quantity: 90.0 Unit: tablet Repeat number: 4 Symbicort 160mcg/4.5mcg Inhaler 2, puffs, Inhalation, 2 times a day, rinse mouth and throat after use ICD 10 =J45.909, # 3 each, Refills 3, Tot. Refills 3, Maintenance, 10/01/15 1:20:00 PM EDT, Aerosol, Route to Pharmacy Electronically, [id number], [facility] Start Date: 10/01/15 Status: Ordered Quantity: 3.0 Unit: each Repeat number: 4 Ventolin HFA 108 mcg/inh inhalation aerosol with adapter 2 puffs, Inhalation, Every 6 hours, PRN for wheezing, # 18 Gm, 3 Refills, Maintenance, 07/18/14 2:05:36 PM EDT, Aerosol, [facility] Start Date: 07/18/14 Status: Ordered [...] Confirmed Active 1Problem added by Discern Expert Procedures Procedure Date Related Diagnosis Body Site Status Left thyroid lobectomy 03/22/24 Co mpleted Vital Signs Most recent to oldest [Reference Range]: 1 2 3 Height 163 cm (03/23/24 9:56 AM) 163 cm (03/23/24 6:58 AM) 163 cm (03/23/24 3:32 AM) Weight 75 kg (03/22/24 11:52 AM) 75 kg (03/21/24 9:26 AM) Oxygen Saturation [94-100 %] 97 % (03/23/24 9:56 AM) 98 % (03/23/24 6:58 AM) 95 % (03/23/24 3:32 AM) Pulse Rate [55-90 bpm] 90 bpm (03/23/24 9:56 AM) 69 bpm (03/23/24 6:58 AM) 77 bpm (03/23/24 3:32 AM) Body Mass Index [18.5-24.99 kg/m2] 28.23 kg/m2 *H* (03/22/24 11:52 AM) 28.23 kg/m2 *H* (03/21/24 9:26 AM) Blood Pressure [90-138/55-84 mm Hg] 145/62mm Hg *H* (03/23/24 9:56 AM) 132/58mm Hg (03/23/24 6:58 AM) 119/65mm Hg (03/23/24 3:32 AM) Respiratory Rate [16-30 br/min] 18 br/min (03/23/24 9:56 AM) 18 br/min (03/23/24 6:58 AM) 20 br/min (03/23/24 3:32 AM) Temperature [96.8-100.4 DegF] 97.3 DegF (03/23/24 9:56 AM) 97.2 DegF (03/23/24 6:58 AM) 97.8 DegF (03/23/24 3:32 AM) Liters per Minute 10 L/min (03/22/24 2:45 PM) Mode of Delivery (Oxygen) Room air (03/23/24 9:56 AM) Room air (03/23/24 6:58 AM) Room air (03/23/24 3:32 AM) Blood pressure sites Arm, left (03/23/24 9:56 AM) Arm, right (03/23/24 6:58 AM) Arm, right (03/23/24 3:32 AM) Temperature Route Oral (03/23/24 9:56 AM) Oral (03/23/24 6:58 AM) Oral (03/23/24 3:32 AM) Dry Weight 66.4 kg (03/22/24 11:52 AM) 75 kg (03/21/24 9:26 AM) Dry Weight Obtained Via Standing scale (03/22/24 11:52 AM) Social History Social History Type Response Smoking Status Never smoker; Tobacc o user in household: No entered on: 01/15/14 Sex Sex Representation Female (finding) History and physical note * Event Display: History and Physical Hospital Authored Date: Hospital Progress note * Gem Sawant RN: PERFORM, SIGN, VERIFY Event Display: Progress Note Hospital Authored Date: Patient: WARREN QUINTANILLA Age: 83 years Sex: Female : 1940 Associated Diagnoses: None Author: Gem Sawant RN Findings Narrative/Incidental Patient assessed this am while eating breakfast. Tolerating food without difficulty and pain is tolerable with only scheduled tylenol. Steri-strips to anterior neck clean dry and intact. Patient states she has been able to void in the bathroom multiple times throughout the night. Expressed some concern over unable to obtian trasnport until in the afternoon most likely. MD rounds complete. discharge instructions reviewed with patient. Report given to discharge unit nurse for transfer. . * Rhea Guaman: PERFORM Event Display: Progress Note Hospital Authored Date: [id number] Patient: ??WARREN QUINTANILLA ? Age:??83 Years?Sex:??Female?:??1940?? Subjective Feeling well, pain controlled. Tolerating diet. Ambulating, voiding. No fevers, nausea, numbness ortingling Physical Exam Vitals & Measurements T:??97.2?F?? HR:??69??(Peripheral)?? RR:??18?? BP:??132/58?? SpO2:??98%?? HT:??163??cm?? WT:??75??kg?? BMI:??28.23? Physical Exam: Constitutional:??In no acute distress, awake, and alert HEENT: Neck incision flat, soft, c/d/i, no skin changes Respiratory: Non-labored breathing on room air Cardiovascular: Regular rate. No LE edema. Warm, well-perfused Neurologic:??Alert and oriented x3.??No focal neurological deficits. Moves all extremities spontaneously Assessment/Plan 83F with 3 cm left thyroid lobe nodule with FNA revealing AUS and suspicious Afirma who is s/p lefthemithyroidectomy (Rosa, 03/22). Recovering well. Incision looks good, no hematoma ?? Plan: - Diet - Pain ctrl; tyl - Home meds - Ambulate - DC home ?? To be discussed with Dr. Rosa RING [id number] Intake and Output Intake and Output Results?? This visit (24 hour periods starting at 07:00 EST)? 03/23/24 *?? 03/22/24?? 03/21/24?? Total Summary?Intake mL?? --?? 100?? --?Output mL?? --?? --?? --?Fluid Balance ?? --?? 100?? --?? Intake (1)?Other IV mL?? --?? 100?? --?Total?? --?? 100?? --?? Output (0)? Counts (0)? * This column has not completed the indicated time period.?? Labs Last 24 Hours No qualifying data available. * Luisa Lee MD: PERFORM Event Display: Progress Note Hospital Authored Date: [id number] Surgery attending note: I saw and evaluated the patient today. I discussed the findings and plan ofcare as documented in the above note. The patient is doing well after left thyroidectomy. Voice is intact. No neck hematoma. No erythema or swelling. Plan: Discharge home today. Path is pending Followup in 2-3 weeks. Luisa Lee M.D. Note * Oneyda Ashton RN: PERFORM Event Display: Discharge/Transfer Note Hospital Authored Date: [id number] Nursing Discharge Note Entered On: 03/23/2024 10:20 EST Performed On: 03/23/2024 10:19 EST by Oneyda Ashton RN Nursing Discharge Note 2 Discharge Time : 03/23/2024 10:19 EST Discharge Level of Care at Discharge : Home/Correction/Foster Care Patient Left Unit Via : Wheelchair Patient Accompanied Off Unit with : Responsible adult DC Instructions Provided & Signed by Pt : Yes Patient Understands D/C Instructions : Yes Patient Instructions Discharge Signed : Yes Did Pt have Specialty Bed or Wound Vac : No Oneyda Ashton RN - 03/23/2024 10:19 EST * Berenice Momin RN: PERFORM Event Display: Patient Education/Instruction Authored Date: [id number] Inpatient Adult Discharge Instructions. [address] [id number] Name: WARREN QUINTANILLA : 1940?? Visit: 03/22/2024 10:29?? Current Date: 03/23/2024 07:44 ?? Account: [id number]?? Inpatient Adult Discharge Instructions We would like to thank you for allowing us to assist you with your healthcare needs. The following includes patient education materials and information regarding your injury/illness. Our entire staffstrives to provide an excellent experience for our patients and their families. PLEASE ENSURE YOU FOLLOW-UP PER THE INSTRUCTIONS BELOW! ?? YOUR OPINION IS IMPORTANT TO US! Please complete the survey you may receive by mail or email. Your feedback will be used to make improvements to the healthcare experiences of our patients and their families. Surveys are administered by [employer]. ?? If further treatment with your primary care physician or another doctor is recommended, it is important for you to keep the appointment. Call your primary care physician or return to the Emergency Department immediately if your condition worsens, fails to improve, or new symptoms develop. If you need to find a doctor, you can call [facility] Delight Link for a referral at [phone] or toll free at [phone]) or log in to [email or web address].. ?? [facility], in keeping with [facility] guidance, no longer requires face masks for staff, patientsor visitors in most situations. Similiar to time spent indoors at other locations, there is the chance that you were exposed to repiratory viruses during your time with us (such as flu or COVID-19). If you develop symptoms concerning for a viral respiratory infection, please seek testing (and treatment if indicated) from your medical provider or home test kit. ?? You can view and manage your care through the patient portal or by using a health care seven of your choosing. [employer] is a website that allows you to securely view your medical information including your hospital discharge summary, office visit summaries, medications and follow-up visits. You can also request appointments, renew medications, and request access to your medical information using a health care seven of your choosing, or just ask a question. You can enroll at [email or web address] or register during your next office visit. You have been discharged from [facility], Patient Care Unit: D3B??. If you have any questions regarding these instructions, including results of studies pending, afteryou leave, please call us and we will be happy to assist you 31/08. [facility] Your Care Team Attending Physician Luisa Lee MD?? Consulting Providers Luisa Lee MD?? Discharging Providers Rhea Guaman Tests Performed Below is a partial list of the tests performed during your hospitalization. You may have had other tests and procedures not included in this list. Please discuss all test results with your provider. GLUCOSE POC Glucose POC?? Pathology Tissue Request ()?? Primary Care Provider Liliana Gutierres? Advance Directive Health Care Proxy on File Yes - Health Care Proxy Discharge Vitals Temperature: 97.2 DegF Height: 163 cm Pulse Rate: 69 bpm Weight: 75 kg Respiratory Rate: 18 br/min Body Mass Index:??28.23 kg/m2??High Systolic Blood Pressure: 132 mm Hg Body surface area: 1.84 Diastolic Blood Pressure: 58 mm Hg ?? Oxygen Saturation: 98 % ?? Studies Pending All studies ordered during this hospital stay have been completed unless listed below. Please discuss all pending results with your provider listed above in these instructions. ?? Pathology Tissue Request ()?? What to do next Instructions From Your Doctor Postoperative Instructions for thyroid surgery ?? You have undergone endocrine surgery with Dr. Lee. The instructions here should help answer common questions and guide you through the first steps of healing and recovery. ?? Activity: Get plenty of rest after surgery, however we would still like you to be active and walk several times a day.?? Increase your walking distance as you feel able.?? Continue with light activities for 1 to 2 weeks then ease yourself back into regular activities.?? No strenuous exercise until 4 weeks after surgery.? Driving: No driving until you are off pain medications and feel comfortable turning your head and neck [id number]. ?? Medication Instructions: ?? Thyroid hormone replacement: RESUME YOUR PREVIOUS DOSE ?? -levothyroxine (???Synthroid?? ) a thyroid hormone replacement. Take levothyroxine on an empty stomach (acidity increases absorption) one hour before breakfast. Do not take levothyroxine within 4 hours of any products that may contain iron or calcium. Do not take levothyroxine at the same time as antacids or proton pump inhibitors ? Pain medications:?? -Tylenol: 975mg every 6 hours for the first 2 days after surgery. After the first few days you can continue to take Tylenol 650mg every 4-6 hours as needed for pain.? -Stool softener: Opioid pain medications can cause constipation so drink plenty of fluids. Take Colace or MiraLAX twice a day when on opioids to prevent constipation. If you don't have a bowel movement in 2-3 days take Milk of Magnesia 30mg twice a day until you have a bowel movement. ?? Incision care: For the first two days after surgery keep your neck elevated and apply ice to minimize swelling. Swelling is normal after surgery, and it will take several weeks for the neck to completely flatten out again. ?? -Showering: it is okay to shower and get your incision wet 1 day after surgery. Water can run over the incision and just pat the incision dry afterwards. No saunas, hot tubs, or soaking the incision until one month after surgery.? -Steri-strips: may be removed from your incision by gently pealing them off 7 days after surgery. ?? What to watch for: ?? If you develop fever, chills, increased pain, bleeding, increased swelling, increased redness or pus around the surgical site please call the office at [phone]. After hours or on weekends call [phone] and have the on-call physician paged. ?? You should have a follow-up appointment scheduled approximately 2 weeks after your surgery date. Please call the office at [phone] with any questions or concerns. ?? Orders?? after seen by Attending MD, ??03/23/24 7:21:00 EST?? Prescriptions??, ??03/23/24 7:21:00 EST?? Scheduled Follow-Up Appointments Wednesday 10:30 AM EST ?? With: Umebrto ACEVES, Leslie Diggs Where: [facility] [address] [place] [address]- Status: Pending 2024 2:20 PM EDT ?? With: Fadi ACEVES, Ren Rivera Where: [facility] [address] [place] [address]- Status: Pending Wednesday 3:30 PM EDT ?? Where: [facility] Radiology [facility] [address], [address] [place] [address]- Status: Pending You Need to Schedule the Following Appointments Follow Up with??Rosa ACEVES, Luisa When:??Within 2 to 3 weeks Why: Please call to schedule an appointment?? Where: [address], [address] [facility] [place] [address]- Discharge Medications WARREN QUINTANILLA :1940 Visit Date:03/22/2024 Medications: Please continue your medications until treatment is completed or stopped by your provider. Medications not listed below should be discontinued. Discuss any questions related to medications with your provider. What How Much When Instructions Next Dose New Acetaminophen (acetaminophen 325 mg oral tablet) 975 Milligram Oral Every 6 hours for the next day or two then 650mg every 4-6hours as needed ?? 10AM Unchanged Albuterol (Ventolin HFA 108 mcg/ inh inhalation aerosol with adapter) 2 puff(s) Inhalation Every 6 hours as needed for for wheezing As needed Unchanged Ascorbic Acid (Vitamin C) Oral Daily Resume home schedule Unchanged Bifidobacterium Infantis (Align) 4 Milligram Oral Daily Resume home schedule Unchanged Budesonide-Formoterol (Symbicort 160mcg/ 4.5mcg Inhaler) 2 puff(s) Inhalation Twice a day rinse mouth and throat after use ICD 10 =J45.909 ?? Resume home schedule Unchanged Calcium And Vitamin D Combination (Calcium 600 +D) Oral Resume home schedule Unchanged Cholecalciferol (Vitamin D3) 2,000 International Unit Oral Resume home schedule Unchanged Levothyroxine (levothyroxine 75 mcg (0.075 mg) oral tablet) See instructions 1 tablet By Mouth 5 times weekly ?? Resume home schedule Unchanged Lisinopril (lisinopril 10 mg oral tablet) 1 tab(s) Oral Daily Resume home schedule Unchanged Montelukast (Singulair 10 mg oral tablet) 1 tab(s) Oral Daily at Bedtime Duration: 90 Days Resume home schedule Unchanged Multivitamin With Minerals (PreserVision) Resume home schedule Unchanged Orestes-3 Polyunsaturated Fatty Acids (Orestes-3 oral capsule) Resume home schedule Unchanged Omeprazole (omeprazole 20 mg oral delayed release tablet) 1 tab(s) Oral Daily Resume home schedule Unchanged Simvastatin (simvastatin 20 mg oral tablet) 1 tab(s) Oral Daily at Bedtime Duration: 90 Days 25 mg daily ?? Resume home schedule Unchanged tirzepatide (Mounjaro 2.5 mg/ 0.5 mL subcutaneous solution) See instructions INJECT 2.5MG SUBCUTANEOUSLY ONCE WEEKLY ROTATE INJECTION SITES ?? Resume home schedule ?? What How Much When Comments Stop Taking Betamethasone-Clotrimazole Topical (betamethasone-clotrimazole 0.05%-1% topical cream) 15 Gm, 0 Refill(s), APPLY TO AFFECTED AREA(S) BY TOPICAL ROUTE 2 TIMES A DAY FOR 7 DAYS NEEDED ?? Stop Taking Nateglinide (nateglinide 120 mg oral tablet) 1 tab(s) Oral 3 times a day before meals Prescription Given During Visit No new medications prescribed at time of discharge.?? Laboratory Results Below is a partial list of the most recent Laboratory test results done prior to this discharge. You may have had other tests and procedures not included in this list. Please discuss all test resultswith your provider. GLUCOSE POC (03/23/2024) ???Glucose, POC - 184 mg/dL You will be contacted within 72 hours with your results. Allergies (NKA means No Known Allergies) Adhesive Bandage??(Skin Irritation: red and itchy) Avelox??(rash) HydroDIURIL??(Skin Irritation: red and itch and rash) Jardiance Levaquin??(Rash) Spiriva??(Unsure of reaction) metFORMIN sulfa drugs??(Skin Irritation: redness, sash, itching) Problems Active Problems??(16) Asthma?? COVID-19?? Diabetic retinopathy?? Diastolic dysfunction?? Dry senile macular degeneration?? GERD (gastroesophageal reflux disease)?? Hiatal hernia?? Hypothyroidism?? LPRD (laryngopharyngeal reflux disease)?? Mixed hyperlipidemia?? Nonrheumatic aortic valve insufficiency?? Osteoporosis?? Primary hypertension?? Splenic artery aneurysm?? Thyroid nodule?? Type 2 diabetes mellitus without complication, without long-term current use of insulin?? Education Materials Below is the list of Educational Leaflet Providered with your Discharge Instructions. Valuables and Belongings I fully understand and agree that [facility] accepts no responsibility for all my personal property including clothing, toilet articles, radios, jewelry, dentures, hearing aids, rings, money, or any other property that is in my possession or is brought to me after admission. I understand certain valuables may be placed in a hospital safe for a short period of time. I understand that the hospital is not liable for loss or damage due to accident, fire, or other natural occurrence while said property is in the safe. I accept full responsibility for any personal property that I keep with me, and will not hold the hospital responsible in case of loss or disappearance. I acknowledge that i have been encouraged to send valuables and belongings home. ?? Date for Pt to Sign Valuables/Belongings: 03/22/24 11:52:00 ?? Valuables & Belongings ?? Clothes Electronic devices Jewelry Monetary Items Personal devices Miscellaneous Medications (Valuables) Valuables at Bedside Coat, Pants, Shirt, Shoes, Undergarments Cell phone, Other: personal financial counselor ? Glasses ? Valuables Sent Home ? Valuables Sent to Security ? Valuables Sent to Locker ? Other Discharge Information ? Pulmonary Rehab Status?? Pulmonary Rehab Discharge Status?? Respiratory Rate: 18 br/min ? Common Emergency Awareness Tips IS IT A STROKE? Act FAST and Check for these signs: FACE Does the face look uneven? ARM Does one arm drift down? SPEECH Does their speech sound strange? TIME Call at any sign of stroke ?? Heart Attack Signs Chest discomfort: Most heart attacks involve discomfort in the center of the chest and lasts more than a few minutes, or goes away and comes back. It can feel like uncomfortable pressure, squeezing, fullness or pain. Discomfort in upper body: Symptoms can include pain or discomfort in one or both arms, back, neck, jaw or stomach. Shortness of breath: With or without discomfort. Other signs: Breaking out in a cold sweat, nausea, or lightheaded. Remember, MINUTES DO MATTER. If you experience any of these heart attack warning signs, call to get immediate medical attention! ?? Smoking can increase your chances of developing chronic health problems and can cause harmful effects to other family members in your house. If you smoke, you are strongly encouraged to quit. Please call [facility]ight Link at [phone] or [phone] [phone]) or log in to [email or web address] for referrals to smoking cessation programs. ?? 211 Suicide & Crisis Lifeline is available 31/08 if you or someone you know needs to find a reason to keep living. By calling 331 you'll be connected to a skilled, trained counselor at a crisis center in your area. INPATIENT DISCHARGE INSTRUCTIONS SIGNATURE PAGE SOCORRO WARREN Location:[facility] Registration Date and Time:03/22/2024 10:29 EST Primary Care Physician: Liliana Gutierres, Attending Physician: Luisa Lee MD, I WARREN QUINTANILLA, have received the above patient education materials/instructions and have verbalized understanding. If ambulance or transport services are being used I further acknowledge being given a choice of service. ?? If you need to contact me, please call me at this number: . Patient/Lead Housekeeper Name: Patient/Lead Housekeeper Signature: Relationship to Patient: Witness Name/Signature: Date: Patient Care team information Care Team Personnel Name: Rk Rivera RN Position: [facility] RN Member Role: Primary Care Nurse Name: Liliana Gutierres Position: [facility] PCO Associate Professional Member Role: PCP Address: [address] [place], [place] [address] Telecom: Name: Dara Headley Position: [facility] Polisher And Buffer Member Role: School Bus Technician Name: Gabi Milton RN Position: [facility] [facility] RN Member Role: Primary Care Nurse Name: Ren Aponte MD Position: [facility] Cardiology MD Member Role: Lifetime Consulting Physician Address: [address] [place] [address]- Telecom: Care Team Related Persons Name: DAVI GLORIA Name: KERI QUINTANILLA Name: BRENTON KISER Insurance Providers Guarantor name: WARRENSHON QUINTANILLA Health Plan Information #: 2 Payer: MEDEX Member Number: [id number] Policy Number: NA Group Number: NA Health Plan Information #: 3 Payer: MEDEX Member Number: [id number] Policy Number: NA Group Number: [id number] Health Plan Information #: 1 Payer: MEDICARE PART B OUTPT Member Number: [id number] Policy Number: NA Group Number: NA Health Plan Information #: 4 Payer: MEDICARE PART B OUTPT Member Number: [id number] Policy Number: NA Group Number: NA
--- OUTSIDE RECORDS SUMMARY | 2024-04-07 16:52 | XMS_ITS | Continuity of Care Document ---
Author Organization [facility] As [address] [place] [address]- Care Team Providers Care Drencher Name Role Phone Liliana Gutierres Primary Care Physician Encounter [facility] Date(s): 02/25/24 - 03/26/[address] [place], [place] [address] Encounter Type: Triage Allergies, Adverse Reactions, Alerts Substance Criticality Severity Reaction Reaction Severity Status Levaquin Rash Active Adhesive Bandage Skin Irrita tion: red and itchy Active Spiriva Unsure of reaction A ctive metFORMIN Active penicillins 1 Resolv ed sulfa drugs Skin Irritation : redness, sash, itching Active Avelox rash Active HydroDIURIL Skin Irritation : red and itch and rash Active Jardiance Active 1see ED note from 07/22, family history of allergy Immunizations Given and Recorded Vaccine Date Status Refusal Reason SARS-CoV-2(COVID-19)mRNA-LNP vac([id number]) 11/14/23 Recorded SARS-CoV-2(COVID-19)mRNA-LNP vac([id number]) 05/02/23 Recorded SARS-CoV-2(COVID-19)mRNA-LNP vac([id number]) 12/05/22 Recorded pneumococcal 23-valent vaccine 10/31/23 Recorded RSV vaccine preF3, recombinant 12/19/22 Recorded influenza virus vaccine, inactivated 12/05/22 Michele rded influenza virus vaccine, inactivated 11/19/21 Michele rded influenza virus vaccine, inactivated 11/09/20 Michele rded pneumococcal 20-valent conjugate vaccine 06/20/22 Recorded [id number] 12y+ bivalent booster vax 06/20/22 Recorded [id number] 12y+ bivalent booster vax 11/13/21 Recorded rabies vaccine, human diploid cell 09/25/21 Given rabies vaccine, human diploid cell 09/18/21 Given rabies vaccine, human diploid cell 09/14/21 Given rabies vaccine, human diploid cell 09/11/21 Given Rabies Immune Globulin, Human 09/11/21 Given SARS-CoV-2 mRNA ([id number]) vax 07/14/21 Recorded SARS-CoV-2 (COVID-19) mRNA BNT-162b2 [...] Refills, Maintenance, 10/13/23 9:54:00 AM EDT, Tablet, [facility]/pharmacy #[id number], Partial fill upon patient request if the [...] 8:04:00 AM EDT, Route to Pharmacy Electronically, [facility], 163, cm, 07/30/23 8:30:00 EDT, Height, 70.4, kg, 01/31/23 11:49:00 EST, Dry Weight Start Date: 09/20/23 Status: Ordered Quantity: 90.0 Unit: tablet Repeat number: 1 Mounjaro 2.5 mg/0.5 mL subcutaneous solution See Instructions, INJECT 2.5MG SUBCUTANEOUSLY ONCE WEEKLY ROTATE INJECTION SITES, # 2 Unknown, 11 Refills, Maintenance, 02/16/24 4:39:00 PM EST, [facility] STORE 67[facility], 162, cm, 02/15/24 13:56:00 EST, Height,67.4, kg, 02/15/24 13:56:00 EST, Dry Weight Start Date: 02/16/24 Status: Ordered Quantity: 2.0 Unit: Unknown Repeat number: 1 Somers-3 oral capsule 0 Refills, Maintenance, 03/30/23 10:29:00 [...] tablet, 3 Refills, Maintenance, 01/29/15 7:49:00AM EST, [facility] Start Date: 01/29/15 Stop Date: 01/24/16 Status: Ordered Quantity: 90.0 Unit: tablet Repeat number: 4 Symbicort 160mcg/4.5mcg Inhaler 2, puffs, Inhalation, 2 times a day, rinse mouth and throat after use ICD 10 =J45.909, # 3 each, Refills 3, Tot. Refills 3, Maintenance, 10/01/15 1:20:00 PM EDT, Aerosol, Route to Pharmacy Electronically, [id number], [facility] Start Date: 10/01/15 Status: Ordered Quantity: 3.0 Unit: each Repeat number: 4 Ventolin HFA 108 mcg/inh inhalation aerosol with adapter 2 puffs, Inhalation, Every 6 hours, PRN for wheezing, # 18 Gm, 3 Refills, Maintenance, 07/18/14 2:05:36 PM EDT, Aerosol, [facility] Start Date: 07/18/14 Status: Ordered [...] Name: Rk Rivera RN Position: [facility] RN Member Role: Primary Care Nurse Name: Liliana Gutierres Position: [facility] PCO Associate Professional Member Role: PCP Address: [address] [place] [address] Telecom: Name: Dara Headley Position: [facility] Network Technician Member Role: Chemical Equipment Controller Name: Gabi Milton RN Position: [facility] RN Member Role: Primary Care Nurse Name: Ren Aponte MD Position: [facility] Cardiology MD Member Role: Lifetime Consulting Physician Address: [address] [place] [address] Telecom: Care Team Related Persons Name: DAVI GLORIA Name: KERI QUINTANILLA Name: BRENTON KISER Insurance Providers Guarantor name: WARREN QUINTANILLA Health Plan Information #: 1 Payer: MEDICARE PART B OUTPT Member Number: NA Policy Number: NA Group Number: NA Health Plan Information #: 2 Payer: MEDEX Member Number: NA Policy Number: NA Group Number: NA
--- OUTSIDE RECORDS SUMMARY | 2024-04-07 16:52 | XMS_ITS | Clinical Summary ---
Author Organization [facility] Address [address] [place] [address] Phone Care Team Providers Care Nurse Orthopedic Name Role Phone Liliana Dyson Primary Care Provider [phone] Allergies Active Allergy Reactions Criticality Noted Date Comments Hydrochlorothiazide 09/29/2005 Other Reaction(s): Rash/Dermatitis Levofloxacin 09/24/2017 Burning/redness of face Moxifloxacin 05/01/2011 Burning, redness of face Other 09/24/2017 Spiriva Handihaler - Dry mouth Penicillin G Potassium 09/29/2005 Sulfacetamide Sodium 09/29/2005 Other Reaction(s): Rash/Dermatitis Medications acetaminophen (TYLENOL) 500 mg tablet 1 Active metroNIDAZOLE (FLAGYL) 500 mg tablet 1 Active levothyroxine (SYNTHROID, LEVOTHROID) 75 mcg tablet Take 1 Tab by mouth daily. Take 1/2 tablet on Wednesday. 0 Active nateglinide (STARLIX) 60 mg tablet Take 1 Tab by mouth 3 times daily (before meals). 0 Active budesonide-form oteroL (Symbicort) 160-4.5 mcg/actuation inhaler USE 2 INHALATIONS ORALLY TWICE DAILY . RINSE MOUTH AFTER USE 9 Active albuterol HFA (Ventolin HFA) 90 mcg/actuation inhaler USE 2 INHALATIONS ORALLY INTO THE LUNGS 4 TIMES A DAY NEEDED FOR COUGH OR WHEEZING 9 Active montelukast (SINGULAIR) 10 mg tablet Take 1 tablet (10 mg total) by mouth 1 (one) time each day in the evening. 8 Active guaiFENesin (MUCINEX) 600 mg 12 hr tablet Take 1,200 mg by mouth 2 times daily. Active tiotropium (SPIRIVA) 18 mcg per inhalation capsule Inhale 1 Cap into the lungs daily. Inhale the contents of one capsule through the Spiriva device every AM 4 Active simvastatin (ZOCOR) 20 mg tablet 1 TABLET AT BEDTIME Active cholecalciferol , vitamin D3, (VITAMIN D3 ORAL) Take 1 Tab by mouth daily. Active ascorbic acid (VITAMIN C ORAL) 1 bid Active MULTIVITAMIN ORAL None Entered Active Bifidobacterium infantis (ALIGN ORAL) Take 4 mg by mouth. 4 Active lisinopriL (PRINIVIL,ZESTR IL) 10 mg tablet Take 1 tablet (10 mg total) by mouth 1 (one) time each day. 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 Overview (12/23/2023): 05/2011 CT chest: Chronic, calcific Type 2 diabetes mellitus without complication Asthma 07/24/2016 Overview (12/23/2023): + Methacholine challenge Gastroesophageal reflux disease 07/24/2016 Hypothyroidism 02/20/2011 Hyperlipidemia 10/07/2006 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 Rosacea 10/07/2006 Encounters Date Type Department Care Team Description 02/08/2024 3:00 PM EST Office Visit Gastroenterology - [address] [place] [id number] Josiah Coles MD Gastroesophageal reflux disease without esophagitis (Primary Dx); Hepatic steatosis; History of colon polyps 01/11/2024 Telephone Gastroenterology - [address] [place] [id number] Flakito Bravo MA from Last 3 Months Surgical History Surgery Date Site/Laterality Comments TONSILLECTOMY PROCEDURE: HISTORICAL TONSILLECTOMY HAND SURGERY PROCEDURE: HISTORICAL HAND SURGERY; COMMENT: injury l index finger OTHER SURGICAL HISTORY PROCEDURE: ---- OTHER ----; COMMENT: growths from uterus COLONOSCOPY 05/30/2015 PROCEDURE: HISTORICAL COLONOSCOPY; COMMENT: normal; no report UPPER GASTROINTESTINAL ENDOSCOPY 03/04/2015 PROCEDURE: UPPER GI ENDOSCOPY/EXAM; COMMENT: normal; no report Medical History Medical History Date Comments 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 DX:No ntoxic uninodular goiter Rosacea 10/07/2006 DX:Rosacea Type 2 diabetes mellitus wit hout complication (CMS/HCC) 09/24/2017 DX:Type 2 diabetes mellitus without complication (HCC) Arthritis 09/24/2017 DX:Arthritis History of colon polyps 10/07/2006 DX:Histo ry of colon polyps Asthma 07/24/2016 DX:Asthma; COMME NT: + Methacholine challenge Gastroesophageal reflux disease 07/24/2016 DX:Gastroesophageal reflux disease Hyperlipidemia 10/07/2006 DX:Hyperlipidemi a Hypothyroidism 02/20/2011 DX:Hypothyroidis m DJD (degenerative joint disease) 09/24/2017 DX:DJD (degenerative joint disease); COMMENT: Hands and back Aortic ectasia (CMS/HCC) 09/24/2017 DX:Aort ic ectasia (HCC); COMMENT: 06/2011 Stress Echo WNL; normal AAA u/s w/ ectactic iliac arteries Gallstone 09/24/2017 DX:Gallstone 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 DX:Spleen hemato ma; COMMENT: 05/2011 CT chest: Chronic, calcific Hepatic steatosis 09/24/2017 DX:Hepatic lauren atosis; COMMENT: 05/2011 Neg hep panel Family History Medical History Relation Name Comments Pancreatic cancer Father Heart attack Mother Other: Other, neuropathy, breast mass Sister Relation Name Status Comments Father Mother Sister Social History Tobacco Use Types Packs/Day Years Used Date Smoking Tobacco: Never Smokeless Tobacco: Never Alcohol Use Standard Drinks/Week Comments Yes 0 (1 standard drink = 0.6 oz pur e alcohol) Comments Unknown Sex and Gender Information Value Date Recorded Sex Assigned at Not on file Legal Sex Female 7:55 AM EST Gender Identity Not on file Sexual Orientation Not on file Obstetrics History Last Filed Vital Signs Vital Sign Reading Time Taken Comments Blood Pressure - - Pulse - - Temperature - - Respiratory Rate - - Oxygen Saturation - - Inhaled Oxygen Concentration - - Weight 67.6 kg (149 lb) 02/08/2024 2:33 PM EST Height 162.6 cm (5' 4 ) 02/08/2024 2:33 PM EST Body Mass Index 25.58 02/08/2024 2:33 PM EST Plan of Treatment Health Maintenance Due Date Last Done Comments Diabetes: Annual Foot Exam 1950 Diabetes: Annual Retina Eye Exam 1950 Zoster Vaccines (1 of 2) 1990 Diabetes: Annual GFR (Glomerular Filtration Rate) 09/05/2020 09/06/2019 Depression Screening 01/11/2022 Falls Risk Assessment 01/11/2022 Medicare Annual Wellness Visit 01/11/2022 Osteoporosis Screening (Bone Density Screening) 01/11/2022 Social Influencers of Health Screening 01/11/2022 Diabetes: Annual Urine Albumin-Creatinine Ratio (uACR) 01/14/2022 09/06/2019 Diabetes: Blood Sugar Control Test (HGBA1C) 01/14/2022 09/06/2019 Influenza Vaccine (#1) 2023 3, 11/19/2021, 11/09/2020 Hypertension/CHF/CAD Annual BMP Blood Test 02/08/2024 09/06/2019 Cholesterol Screening (Lipid Panel) 09/05/2024 09/06/2019 DTaP,Tdap,and Td Vaccines (2 - Td or Tdap) 12/30/2026 12/30/2016 RSV Immunization Patients 60+ Years Old Completed 12/19/2022 Pneumococcal Vaccine: 50+ Years Completed 10/31/2023, 06/20/2022 COVID-19 Vaccine Completed 11/14/2023, , 12/05/2022, Additional history exists HIB Vaccines Aged Out No longer eligi ble based on patient's age to complete this topic HPV Vaccines Aged Out No longer eligi ble based on patient's age to complete this topic Hepatitis A Vaccines Aged Out No long er eligible based on patient's age to complete this topic Hepatitis B Vaccines Aged Out No long er eligible based on patient's age to complete this topic IPV Vaccines Aged Out No longer eligi ble based on patient's age to complete this topic MMR Vaccines Aged Out No longer eligi ble based on patient's age to complete this topic Meningococcal ACWY Vaccine Aged Out N o longer eligible based on patient's age to complete this topic Meningococcal B Vacine Aged Out No lo nger eligible based on patient's age to complete this topic RSV Immunization Patients Under 20 months Aged Out No longer eligible based on patient's age to complete this topic Varicella Vaccines Aged Out No longer eligible based on patient's age to complete this topic Procedures Procedure Name Priority Date/Time Associated Diagnosis Comments URINE ALBUMIN CREATININE RATIO Routine 09/06/2019 ANNUAL BMP BLOOD TEST Routine 09/06/2019 HEMOGLOBIN A1C Routine 09/06/2019 LIPID PANEL Routine 09/06/2019 from Last 3 Months or Most Recently Relevant to Health Maintenance Results * Urine Albumin Creatinine Ratio (09/06/2019) Urine Albumin Creatinine Ratio abstracted Historical Provider MD HEALTH MAINTENANCE Final Result * Annual BMP Blood Test (09/06/2019) Pathologist [facility] Annual BMP Blood Test abstracted Historical Provider HEALTH MAINTENANCE Final Result * (ABNORMAL) Hemoglobin A1c (09/06/2019) Hemoglobin A1C 7.8(A) <=6.5 % Blood Venous blood specimen / Unknown Historical Provider LAB BLOOD ORDERABLES Janey l Result * (ABNORMAL) Lipid panel (09/06/2019) LDL/HDL Ratio 3 0 - 4 Triglycerides 158(A) 0 - 150 mg/dL Cholesterol 142 0 - 200 mg/dL HDL 43 >=40 mg/dL LDL Cholesterol 68 0 - 100 mg/dL Blood Venous blood specimen / Unknown Historical Provider LAB BLOOD ORDERABLES Janey l Result from Last 3 Months or Most Recently Relevant to Health Maintenance Insurance MEDICARE [facility] Care Teams Nurse Orthopedic Relationship Specialty Start Date End Date Liliana Dyson PA [address] [place] [phone] PCP - General Physician C Engineer 02/08/24
--- OUTSIDE RECORDS SUMMARY | 2024-04-07 16:52 | XMS_ITS | Continuity of Care Document ---
Author Organization [facility] Address [address] [place] [id number]- Care Team Providers Care Filter Plant Supervisor Name Role Phone Liliana Gutierres Primary Care Physician [id number] Date[facility]s): [facility] - 04/05/24 [facility] [address] [place], [place] [address] Attending Physician: Ti Summers MD Referring Physician: Luisa Lee MD Encounter Type: Pre Office Visit Allergies, Adverse Reactions, Alerts Substance Criticality Severity Reaction Reaction Severity Status penicillins 1 Resolv ed sulfa drugs Skin Irritation : redness, sash, itching Active Levaquin Rash Active Avelox rash Active HydroDIURIL Skin Irritation : red and itch and rash Active Adhesive Bandage Skin Irrita tion: red and itchy Active Spiriva Unsure of reaction A ctive Jardiance Active metFORMIN Active 1see ED note from 07/22, family history of allergy Immunizations Given and Recorded Vaccine Date Status Refusal Reason SARS-CoV-2(COVID-19)mRNA-LNP vac([id number]) 11/14/23 Recorded SARS-CoV-2(COVID-19)mRNA-LNP vac([id number]) 05/02/23 Recorded SARS-CoV-2(COVID-19)mRNA-LNP vac([id number]) 12/05/22 Recorded pneumococcal 23-valent vaccine 10/31/23 Recorded RSV vaccine preF3, recombinant 12/19/22 Recorded influenza virus vaccine, inactivated 12/05/22 Michele rded influenza virus vaccine, inactivated 11/19/21 Michele rded influenza virus vaccine, inactivated 11/09/20 Michele rded pneumococcal 20-valent conjugate vaccine 06/20/22 Recorded [id number] 12y+ bivalent booster vax 06/20/22 Recorded [id number] 12y+ bivalent booster vax 11/13/21 Recorded rabies vaccine, human diploid cell 09/25/21 Given rabies vaccine, human diploid cell 09/18/21 Given rabies vaccine, human diploid cell 09/14/21 Given rabies vaccine, human diploid cell 09/11/21 Given Rabies Immune Globulin, Human 09/11/21 Given SARS-CoV-2 mRNA ([id number]-fcoz-tpspv) vax 07/14/21 Recorded SARS-CoV-2 (COVID-19) mRNA BNT-162b2 [...] Repeat number: 1 betamethasone-clotrimazole 0.05%-1% topical cream 1 application, Topically, 2 times a day, for 10 days, # 45 Gm, 1 Refills, Acute 04/20/24 3:15:00 PM EDT, 03/31/24 3:15:00 PM EST, Cream, [facility]/pharmacy #[id number], Partial fill upon patient request if the prescription is for a schedule II opioid drug., 1 application Topically 2 times a day,x10 days, 163, cm, 03/31/24 14:34:00 EST, Height, 66, kg, 03/28/24 17:49:00 EST, Dry Weight Start Date: 03/31/24 Stop Date: 04/20/24 Status: Ordered Quantity: 45.0 Unit: g Repeat number: 2 Calcium 600 +D By Mouth, 0 Refills, Maintenance, 03/30/23 10:28:00 AM EST, Partial fill upon patient request if theprescription is for a schedule II opioid drug. Start Date: 03/30/23 Status: Ordered Repeat number: 1 Lasix 40 mg oral tablet See Instructions, take 40mg daily for three days by mouth, # 3 tablet, Refills 0, Tot. Refills 0, Maintenance, 03/29/24 2:50:00 PM EST, Instructions Replace Required Details, Route to Pharmacy Electronically, [facility]/pharmacy #[id number], Partial fill upon patient request if the prescription is for a scheduleII opioid drug., 163, cm, 03/28/24 17:49:00 EST, Height, 66, kg, 03/28/24 17:49:00 EST, Dry Weight Start Date: 03/29/24 Status: Ordered Quantity: 3.0 Unit: tablet Repeat number: 1 levothyroxine 75 mcg (0.075 mg) oral tablet See Instructions, 1 tablet By Mouth 5 times weekly, # 65 each, 3 Refills, Maintenance, 10/13/23 9:54:00 AM EDT, Tablet, [facility]/pharmacy #[id number], Partial fill upon patient [...] 8:04:00 AM EDT, Route to Pharmacy Electronically, [facility] STORE [id number], 163, cm, 07/30/23 8:30:00 EDT, Height, 70.4, kg, 01/31/23 11:49:00 EST, Dry Weight Start Date: 09/20/23 Status: Ordered Quantity: 90.0 Unit: tablet Repeat number: 1 Mounjaro 2.5 mg/0.5 mL subcutaneous solution See Instructions, INJECT 2.5MG SUBCUTANEOUSLY ONCE WEEKLY ROTATE INJECTION SITES, # 2 Unknown, 11 Refills, Maintenance, 02/16/24 4:39:00 PM EST, [facility] [id number], 162, cm, 02/15/24 13:56:00 EST, Height,67.4, kg, 02/15/24 13:56:00 EST, Dry Weight Start Date: 02/16/24 Status: Ordered Quantity: 2.0 Unit: Unknown Repeat number: 1 Amery-3 oral capsule 0 Refills, Maintenance, 03/30/23 10:29:00 [...] AM EDT, Route to Pharmacy Electronically, [facility]/pharmacy #[id number], Partial fill upon patient request if the [...] tablet, 3 Refills, Maintenance, 01/29/15 7:49:00AM EST, [facility] Start Date: 01/29/15 Stop Date: 01/24/16 Status: Ordered Quantity: 90.0 Unit: tablet Repeat number: 4 Symbicort 160mcg/4.5mcg Inhaler 2, puffs, Inhalation, 2 times a day, rinse mouth and throat after use ICD 10 =J45.909, # 3 each, Refills 3, Tot. Refills 3, Maintenance, 10/01/15 1:20:00 PM EDT, Aerosol, Route to Pharmacy Electronically, [id number], [facility] Start Date: 10/01/15 Status: Ordered Quantity: 3.0 Unit: each Repeat number: 4 Ventolin HFA 108 mcg/inh inhalation aerosol with adapter 2 puffs, Inhalation, Every 6 hours, PRN for wheezing, # 18 Gm, 3 Refills, Maintenance, 07/18/14 2:05:36 PM EDT, Aerosol, [facility] Start Date: 07/18/14 Status: Ordered Quantity: 18.0 Unit: g Repeat number: 4 Problem List Condition Confirmation Course Effective Dates [...] Team Personnel Name: Rk Rivera RN Position: [facility] RN Member Role: Primary Care Nurse Name: Liliana Gutierres Position: [facility] PCO Associate Professional Member Role: PCP Address: [place], [place] [address] Telecom: Name: Dara Headley Position: [facility] Nuclear Medical Tech Member Role: Vp Home Health Name: Gabi Milton RN Position: [facility] RN Member Role: Primary Care Nurse Name: Fadi ACEVES, Ren Rivera Position: [facility] MD Member Role: Lifetime Consulting Physician Address: [address] [place] [address] Telecom: Care Team Related Persons Name: DAVI GLORIA Name: KERI QUINTANILLA Name: BRENTON KISER Insurance Providers Guarantor name: WARREN QUINTANILLA Health Plan Information #: 2 Payer: MEDICARE PART B OUTPT Member Number: [id number] Policy Number: NA Group Number: NA Health Plan Information #: 1 Payer: MEDEX Member Number: [id number] Policy Number: NA Group Number: NA
== END 2024-04-07 15:46 | disposition home or self-care (01) ==
PROVIDERS: PCP Physician Assistant Medical; Visit Provider Hospitalist
DX: J45.41 Moderate persistent asthma with (acute) exacerbation (principal); R06.09 Other forms of dyspnea; K44.9 Diaphragmatic hernia without obstruction or gangrene; J04.2 Acute laryngotracheitis
CPT/HCPCS: 99214

== ENCOUNTER → 2024-04-07 14:42 | Outpatient (BNVA) | payer MEDICARE, SELFPAY | PROVIDERS: PCP Physician Assistant Medical; Visit Provider Hospitalist | DX: J45.41 Moderate persistent asthma with (acute) exacerbation (principal); R06.09 Other forms of dyspnea; J04.2 Acute laryngotracheitis; K44.9 Diaphragmatic hernia without obstruction or gangrene | CPT/HCPCS: 99212 ==

== ENCOUNTER 2024-05-09 14:08 | Outpatient (AMB) | payer MEDICARE, SELFPAY ==
[2024-05-09 14:21] VITALS: BP 128/70; PULSE 74; O2SAT 98; BMI 25.0
--- NOTE | 2024-05-09 14:21 | A.OFFVIS_ITS ---
Vital Signs 05/09/24 14:21 Height 5 ft 4 in Weight 145 lb 8.081 oz BMI 25.0 BP 128/70 Blood Pressure Location Rt brachial Position Sitting Pulse 74 Pulse Source Pulse Oximeter Pulse Oximetry (%) 98 Oxygen Delivery Method Room Air Intake Visit Reasons: COPD/Thyroid Lobectomy (Dr. Lee) Allergies levofloxacin [Levaquin] Allergy (Severe, Verified 05/09/24 14:25) Rash/Hives tiotropium [Spiriva with HandiHaler] Allergy (Severe, Verified 05/09/24 14:25) Rash/Hives cefpodoxime [From Vantin] Adverse Reaction (Intermediate, Verified 05/09/24 14:25) Abdominal Pain Avelox Allergy (Severe, Uncoded 05/09/24 14:25) Rash/Hives Hydrodiuril Allergy (Severe, Uncoded 05/09/24 14:25) Rash/Hives Penicillin Allergy (Severe, Uncoded 05/09/24 14:25) Rash/Hives Sulfa Drugs Allergy (Severe, Uncoded 05/09/24 14:25) Rash/Hives HPI Comments Details: The patient is a 83 y/o woman with a history of asthma. Recently she went to [place] with a river expedition guide. Upon arrival her luggage was lost and she was without her Symbicort for a couple days. She did buy lrzt-del-jdehpye Symbicort but he came in a powdered device that she did not know how to use. Subsequently after she returned she started developing worsening shortness of breath and cough. She was given a course of azithromycin which she took without any significant improvement. Therefore, she was evaluated in the office of her primary care and was given a prednisone taper. She did have a chest x-ray and radiology imaging which was read as normal. But, we did evaluated in the office in appeared that she did have spine sign suggesting airspace disease in the lower lung zone. Clinically she feels better although she still has a nagging back discomfort. It is not pleuritic in nature. We did discuss her x-ray that she had which was within normal limits. 04/01/2023 the patient is here for pulmonary follow-up visit. Recently she was sick with an asthma flare. Likely viral syndrome.. She did require prednisone. She also required a course of antibiotics. She is feeling better. In the meantime she was switched over from Symbicort to Breo. She does not tolerate the Breo inhaler. It does not help her and is actually making a cough and some comfortable. She would like to go back to Symbicort the work very well for her. Will go ahead and send a prescription in a PA to get her approved since her insurance is no longer covering. Otherwise patient is doing well. Denies any significant reflux symptoms. 09/29/2023 the patient is here for pulmonary follow-up visit. Since we last saw her she did develop a respiratory infection. She started coughing. She can not see her here so she went to an urgent care. She had an x-ray that apparently was clear. She was given a course of doxycycline for bronchitis. Although still lingering. Moderate severity. She feels sometimes a croupy cough. She does bring up some phlegm although she does not always look at it. The patient also has been using the Symbicort with good effect. She has not noticed any wheezing or chest tightness. She has not had to use her rescue inhaler. On her visit today she did cough and sounds like tracheitis some degree with some croupy cough component. She also has some coarse breath sounds. Will go ahead and start her on Vantin since she is allergic to penicillins apparently however, she has never really use penicillin issue started mom was allergic. Therefore the needs to be readdress at some point. The patient will call she is no better. Otherwise she will continue her respiratory therapy and use Mucinex. Patient follow-up in 6 months. 11/04/2023 the patient is here for a pulmonary follow-up visit. Overall she is doing better. During the last visit she had been sick with bronchitis. She has given a multiple courses of antibiotics. However the Vantin did cause her to have significant abdominal discomfort. After few days she had to stop it. She did feel like it helped some. Afterwards she was switched over to azithromycin and she tolerated a lot better. She still has a cough although nonproductive in nature. This can hacky. We can try Carolina Miller to see if we can provide her some relief. He is also concerned because she was found to have a nodule that had to be biopsy because it was growing in size. And it showed suspicious cells. She is going to be seen does not general surgeon soon regarding a possible resection of thyroid area. I did reassure her that she is doing well from a respiratory status she could proceed forward. 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 However, she has been doing well from that standpoint. She has to let anesthesia know that she is at risk for laryngeal spasms so they can minimize any irritation to the vocal cords. But ultimately if she does need thyroid surgery she does not have any limitations from a pulmonary standpoint he may be able to proceed with surgery. Hopefully she can try the Tessalon Perles 1st to make sure she tolerates them as a way to control her cough afterwards. 02/23/2024 the patient is here for sick visit. Apparently about a week ago she was diagnosed with COVID. She was treated with prednisone and was given supportive care. Now she is complaining of worsening chest congestion and cough. Yellow phlegm. Moderate severity. She is concerned of having pneumonia. She is also scheduled for surgery for a thyroid nodule this will be the beginning of March. She is concerned that she is coughing a lot and she is now going to be ready for surgery. On exam she does have some rhonchi throughout primarily at the bases. She could have some component of bronchopneumonia. She has had multiple sensitivity to antibiotics. Will go ahead and start her on doxycycline since she has been able to tolerate that. The patient will call in 48 hours if she is not any better. She is also weaning that on prednisone. Will go ahead and prolonged her lower dose prednisone taper. She does have a nebulizer. Will give her a nebulizer treatment now and she will take the supplies in order to continue the nebulizer machine therapy at home. She did have a chest x-ray at [facility] already. Will hold off on further imaging studies unless she gets worse she can always call we can request a repeat x-ray. 04/07/2024 the patient is here for sick visit. She is having significant cough after her surgery. The surgery for the thyroid went very well. Is healing nicely. She needs to follow-up with the surgeon for postoperative visit. In meantime she started developing a croupy cough moderate severity. Congested at times. She stopped using her nebulizer because she was concerned about the open wound. I reassured her that her wound looks close now. In the meantime will go ahead and started on a Z-Sammy and also place her on cough medications in order for her to stop coughing and avoid hurting her recent surgical site. Will avoid prednisone. The patient does not have any significant wheezing right now anyway but we would want to provide good tissue healing. The patient is to call us next week to give us an update. In the meantime she is going to continue with the other respiratory medications. 05/09/2024 the patient is here for pulmonary follow-up visit. Overall she did recover from her surgery. She completed the Z-Sammy and also started the nebulizer therapy and has now improved. She is back to her baseline. She is back to work. Her surgical scar looks to be very well healed and a noticeable. Her lungs are clear. No imaging studies to review. At this point the patient is responding well to the current therapy. She is on the generic Symbicort. Has not had to use her rescue inhaler often. Week. Will plan to follow-up in a year's time issues arise she will call for an earlier assessment. [facility] Medical History (Updated 05/09/24 @ 21:28 by Raheem Dixon MD) Chronic restrictive lung disease Hyperlipidemia Hypothyroidism Limb swelling Dyspnea Hiatal hernia Diabetes Asthma Social History Patient Tobacco Use Status: Never used Tobacco Review of Systems Const Denies night sweats ENT Reports as per HPI, Denies change in voice, Denies lip swelling, Denies mouth pain, Reports nasal congestion, Reports nasal discharge and Denies tongue swelling Card Denies chest pain and Denies dyspnea Resp Denies chest congestion, Reports cough, Denies pain on inspiration, Denies pain with cough, Denies dyspnea and Reports wheezing GI Reports heartburn Musc Denies no additional complaints, Reports arthralgias and Reports joint swelling Neuro Denies Neuro-related abnormal movements Psych Denies no additional complaints Rad/Lymph Denies easy bleeding and Denies lymphadenopathy Aller/Immun Denies lip swelling, Denies tongue swelling and Reports wheezing Physical Exam Vital Signs: Last Vital Signs Pulse 74 05/09/24 14:21 BP 128/70 05/09/24 14:21 Pulse Ox 98 05/09/24 14:21 Oxygen Delivery Method Room Air 05/09/24 14:21 BMI result Body Mass Index 25.0 Const General: alert Orientation/consciousness: patient oriented x3 HEENT Head: Yes normal to inspection General nose exam: No nasal polyps present and No nasal discharge present Face and sinus: Yes sinuses nontender Mouth: oropharynx normal Throat: Yes posterior oropharynx normal Eyes General: appearance normal, both eyes and all related structures Neck Neck: Yes normal visual inspection, Yes full ROM and Yes no lymphadenopathy Thyroid: Thyroid normal Chest Chest palpation & inspection: normal inspection of the chest Resp Effort & Inspection: normal respiratory effort Auscultation: no wheezes and diminished lung sounds Cardio Palpation: normal PMI Rate: regular rate Rhythm: regular rhythm Heart sounds: S1 normal heart sound present, S2 normal heart sound present, no gallops and no murmurs Peripheral pulses: Peripheral pulses 2+ throughout GI Palpation (GI): Soft to palpation, nontender and no masses Auscultation: normal bowel sounds Back/Spine/Pelvis Thoracic/Lumbar Spine: thoracic and lumbar spine normal to inspection Skin General skin exam: no rashes or lesions noted Neuro General: patient oriented x3 and no focal motor deficits Cranial nerves: Yes CN's II-XII intact bilaterally Extrem General: No calf tenderness Psych Speech and movement: Normal speech and movement present Assessment & Plan Assessment & Plan (1) Asthma: Code(s): J45.909 - Unspecified asthma, uncomplicated Category: Medical Qualifiers: Asthma complication type: uncomplicated Asthma persistence: persistent Asthma severity: moderate Qualified Code(s): J45.40 - Moderate persistent asthma, uncomplicated (2) Dyspnea: Code(s): R06.00 - Dyspnea, unspecified Category: Medical Qualifiers: Dyspnea type: dyspnea on exertion Qualified Code(s): R06.09 - Other forms of dyspnea (3) Hiatal hernia: Code(s): K44.9 - Diaphragmatic hernia without obstruction or gangrene Category: Medical Plan continue Symbicort/Breyna continue Singulair DEB as needed nebulizer xopenex BID as needed reflux diet benzonates as needed F/U 8-12 months Coding Level of Care Code Est Pt Level 4 (84988) Diagnoses Moderate persistent asthma without complication J45.40 Asthma complication type: uncomplicated Asthma persistence: persistent Asthma severity: moderate Dyspnea on exertion R06.09 Dyspnea type: dyspnea on exertion Hiatal hernia K44.9 Time Spent (min) 16
--- OUTSIDE RECORDS SUMMARY | 2024-05-09 16:55 | XMS_ITS | Continuity of Care Document ---
Author Organization [facility] Address [address] [place] [id number]- Care Team Providers Care Aquaculture Worker Name Role Phone Liliana Gutierres Primary Care Physician [id number] Date(s): 01/05/24 - 05/04/24 [facility] [address] [place] [id number] Attending Physician: Leslie Shipman MD Admitting Physician: Leslie Shipman MD Referring Physician: Liliana Gutierres Encounter Type: Pre-OutPatient One Time Allergies, Adverse Reactions, Alerts Substance Criticality Severity Reaction Reaction Severity Status Levaquin Rash Active Jardiance Active penicillins 1 Resolv ed sulfa drugs Skin Irritation : redness, sash, itching Active Avelox rash Active HydroDIURIL Skin Irritation : red and itch and rash Active Adhesive Bandage Skin Irrita tion: red and itchy Active Spiriva Unsure of reaction A ctive metFORMIN Active 1see ED note from 07/22, family history of allergy Immunizations Given and Recorded Vaccine Date Status Refusal Reason SARS-CoV-2(COVID-19)mRNA-LNP vac([id number]) 11/14/23 Recorded SARS-CoV-2(COVID-19)mRNA-LNP vac([id number]) 05/02/23 Recorded SARS-CoV-2(COVID-19)mRNA-LNP vac([id number]) 12/05/22 Recorded pneumococcal 23-valent vaccine 10/31/23 Recorded RSV vaccine preF3, recombinant 12/19/22 Recorded influenza virus vaccine, inactivated 12/05/22 Michele rded influenza virus vaccine, inactivated 11/19/21 Michele rded influenza virus vaccine, inactivated 11/09/20 Michele rded pneumococcal 20-valent conjugate vaccine 06/20/22 Recorded [id number] 12y+ bivalent booster vax 06/20/22 Recorded [id number] 12y+ bivalent booster vax 11/13/21 Recorded rabies vaccine, human diploid cell 09/25/21 Given rabies vaccine, human diploid cell 09/18/21 Given rabies vaccine, human diploid cell 09/14/21 Given rabies vaccine, human diploid cell 09/11/21 Given Rabies Immune Globulin, Human 09/11/21 Given SARS-CoV-2 mRNA ([id number]) vax 07/14/21 Recorded SARS-CoV-2 (COVID-19) mRNA BNT-162b2 vac 03/31/20 Recorded SARS-CoV-2 (COVID-19) mRNA BNT-162b2 vac 03/10/20 Recorded tetanus-diphtheria toxoids (Td) 12/30/16 Recorded Medications (Vitamin D3) Cholecalciferol 400 CUSTODIAL units/mL oral syringe 1 mL = 10 mcg, By Mouth, Daily, 0 Refills, Maintenance, 04/18/24 1:58:00 PM EDT, Partial fill upon patient request if the prescription is for a schedule II opioid drug. Start Date: 04/18/24 Status: Ordered Repeat number: 1 acetaminophen 325 mg oral tablet 975 mg, [...] Replace Required Details, Route to Pharmacy Electronically, [facility]/pharmacy #[id number], Partial fill upon patient request if the prescription is for a scheduleII opioid drug., 163, cm, 03/28/24 17:49:00 EST, Height, 66, kg, 03/28/24 17:49:00 EST, Dry Weight Start Date: 03/29/24 Status: Ordered Quantity: 3.0 Unit: tablet Repeat number: 1 levothyroxine 0.05 mg oral tablet 1 tablet = 50 mcg, By Mouth, Daily, # 90 tablet, 1 Refills, Maintenance, 04/23/24 1:22:00 PM EDT, [facility]/pharmacy #[id number], Partial fill upon patient request if the prescription is for a schedule II opioid drug., 163, cm, 04/18/24 13:51:00 EDT, Height, 66, kg, 03/28/24 17:49:00 EST, Dry Weight Start Date: 04/23/24 Stop Date: 10/20/24 Status: Ordered Quantity: 90.0 Unit: tablet Repeat number: 2 lisinopril 10 mg oral tablet 1, tablet, By Mouth, Daily, # 90 tablet, Refills 3, Maintenance, 09/20/23 8:04:00 AM EDT, Route to Pharmacy Electronically, [id number], 163, cm, 07/30/23 8:30:00 EDT, Height, 70.4, kg, 01/31/23 11:49:00 EST, Dry Weight Start Date: 09/20/23 Status: Ordered Quantity: 90.0 Unit: tablet Repeat number: 1 Mounjaro 2.5 mg/0.5 mL subcutaneous solution See Instructions, INJECT 2.5MG SUBCUTANEOUSLY ONCE WEEKLY ROTATE INJECTION SITES, # 2 Unknown, 11 Refills, Maintenance, 02/16/24 4:39:00 PM EST, [id number], 162, cm, 02/15/24 13:56:00 EST, Height,67.4, kg, 02/15/24 13:56:00 EST, Dry Weight Start Date: 02/16/24 Status: Ordered Quantity: 2.0 Unit: Unknown Repeat number: 1 Felch-3 oral capsule 0 Refills, Maintenance, 03/30/23 10:29:00 [...] EDT, Route to Pharmacy Electronically, [facility]/pharmacy #[id number], Partial fill upon patient request if the [...] tablet, 3 Refills, Maintenance, 01/29/15 7:49:00AM EST, [facility] Start Date: 01/29/15 Stop Date: 01/24/16 Status: Ordered Quantity: 90.0 Unit: tablet Repeat number: 4 Symbicort 160mcg/4.5mcg Inhaler 2, puffs, Inhalation, 2 times a day, rinse mouth and throat after use ICD 10 =J45.909, # 3 each, Refills 3, Tot. Refills 3, Maintenance, 10/01/15 1:20:00 PM EDT, Aerosol, Route to Pharmacy Electronically, [id number], [facility] Start Date: 10/01/15 Status: Ordered Quantity: 3.0 Unit: each Repeat number: 4 Ventolin HFA 108 mcg/inh inhalation aerosol with adapter 2 puffs, Inhalation, Every 6 hours, PRN for wheezing, # 18 Gm, 3 Refills, Maintenance, 07/18/14 2:05:36 PM EDT, Aerosol, [facility] Start Date: 07/18/14 Status: Ordered Quantity: 18.0 Unit: g Repeat number: 4 Vitamin C By Mouth, Daily, 0 Refills, Maintenance, 04/18/24 1:57:00 PM EDT, Partial fill upon patient request if the prescription is for a schedule II opioid drug. Start Date: 04/18/24 Status: Ordered Repeat number: 1 Problem List [...] Team Personnel Name: Rk Rivera RN Position: [facility] RN Member Role: Primary Care Nurse Name: Liliana Gutierres Position: [facility] PCO Associate Professional Member Role: PCP Address: [address] [place] [address] Telecom: Name: Dara Headley Position: [facility] Certified Hand Therapist Member Role: Shale Planer Operator Name: Gabi Milton RN Position: [facility] RN Member Role: Primary Care Nurse Name: Ren Aponte MD Position: [facility] Cardiology MD Member Role: Lifetime Consulting Physician Address: [address] [place] [address] Telecom: Care Team Related Persons Name: DAVI GLORIA Name: KERI QUINTANILLA Name: BRENTON KISER Insurance Providers Guarantor name: WARREN SOCORRO Health Plan Information #: 2 Payer: MEDEX Member Number: [id number] Policy Number: NA Group Number: NA Health Plan Information #: 1 Payer: MEDICARE PART B OUTPT Member Number: [id number] Policy Number: NA Group Number: NA
--- OUTSIDE RECORDS SUMMARY | 2024-05-09 16:55 | XMS_ITS | Continuity of Care Document ---
Author Organization [address] [place] [address]- Care Team Providers Care Payloader Operator Name Role Phone Liliana Gutierres [id number] Date(s): 01/12/24 - 05/06/[address] [place], [place] [address] Attending Physician: Not on Staff, Attending MD Encounter Type: Pre Office Visit Allergies, [...] Recorded Vaccine Date Status Refusal Reason SARS-CoV-2(COVID-19)mRNA-LNP vac([id number]) 11/14/23 Recorded SARS-CoV-2(COVID-19)mRNA-LNP vac([id number]) 05/02/23 Recorded SARS-CoV-2(COVID-19)mRNA-LNP vac([id number]) 12/05/22 Recorded pneumococcal 23-valent vaccine 10/31/23 Recorded RSV vaccine preF3, recombinant 12/19/22 Recorded influenza virus vaccine, inactivated 12/05/22 Michele rded influenza virus vaccine, inactivated 11/19/21 Michele rded influenza virus vaccine, inactivated 11/09/20 Michele rded pneumococcal 20-valent conjugate vaccine 06/20/22 Recorded [id number] 12y+ bivalent booster vax 06/20/22 Recorded [id number] 12y+ bivalent booster vax 11/13/21 Recorded rabies vaccine, human diploid cell 09/25/21 Given rabies vaccine, human diploid cell 09/18/21 Given rabies vaccine, human diploid cell 09/14/21 Given rabies vaccine, human diploid cell 09/11/21 Given Rabies Immune Globulin, Human 09/11/21 Given SARS-CoV-2 mRNA ([id number]) vax 07/14/21 Recorded SARS-CoV-2 (COVID-19) mRNA BNT-162b2 vac 03/31/20 Recorded SARS-CoV-2 (COVID-19) mRNA BNT-162b2 vac 03/10/20 Recorded tetanus-diphtheria toxoids (Td) 12/30/16 Recorded Medications (Vitamin D3) Cholecalciferol 400 SENIOR LIVING units/mL oral syringe 1 mL = 10 [...] Replace Required Details, Route to Pharmacy Electronically, [facility]/pharmacy #[id number], Partial fill upon patient [...] 1 Refills, Maintenance, 04/23/24 1:22:00 PM EDT, [facility]/pharmacy #[id number], Partial fill upon patient [...] EDT, Route to Pharmacy Electronically, [id number], 163, cm, 07/30/23 8:30:00 EDT, Height, 70.4, kg, 01/31/23 11:49:00 EST, Dry Weight Start Date: 09/20/23 Status: Ordered Quantity: 90.0 Unit: tablet Repeat number: 1 Mounjaro 2.5 mg/0.5 mL subcutaneous solution See Instructions, INJECT 2.5MG SUBCUTANEOUSLY ONCE WEEKLY ROTATE INJECTION SITES, # 2 Unknown, 11 Refills, Maintenance, 02/16/24 4:39:00 PM EST, [id number], 162, cm, 02/15/24 13:56:00 EST, Height,67.4, kg, 02/15/24 13:56:00 EST, Dry Weight Start Date: 02/16/24 Status: Ordered Quantity: 2.0 Unit: Unknown Repeat number: 1 [place]-3 oral capsule 0 Refills, Maintenance, 03/30/23 10:29:00 [...] EDT, Route to Pharmacy Electronically, [facility]/pharmacy #[id number], Partial fill upon patient [...] tablet, 3 Refills, Maintenance, 01/29/15 7:49:00AM EST, [facility] Start Date: 01/29/15 Stop Date: 01/24/16 Status: Ordered Quantity: 90.0 Unit: tablet Repeat number: 4 Symbicort 160mcg/4.5mcg Inhaler 2, puffs, Inhalation, 2 times a day, rinse mouth and throat after use ICD 10 =J45.909, # 3 each, Refills 3, Tot. Refills 3, Maintenance, 10/01/15 1:20:00 PM EDT, Aerosol, Route to Pharmacy Electronically, [id number], [facility] Start Date: 10/01/15 Status: Ordered Quantity: 3.0 Unit: each Repeat number: 4 Ventolin HFA 108 mcg/inh inhalation aerosol with adapter 2 puffs, Inhalation, Every 6 hours, PRN for wheezing, # 18 Gm, 3 Refills, Maintenance, 07/18/14 2:05:36 PM EDT, Aerosol, [facility] Start Date: 07/18/14 Status: Ordered Quantity: [...] Team Personnel Name: Rk Rivera RN Position: [facility] RN Member Role: Primary Care Nurse Name: Liliana Gutierres Position: [facility] PCO Associate Professional Member Role: PCP Address: [address] [place] [address] Telecom: Name: Dara Headley Position: [facility] MA Studio Control Operator Member Role: Spider Assembler Name: Gabi Milton RN Position: [facility] RN Member Role: Primary Care Nurse Name: Ren Aponte MD Position: [facility] Cardiology MD Member Role: Lifetime Consulting Physician Address: [address] [place] [address] Telecom: Care Team Related Persons Name: DAVI GLORIA Name: KERI QUINTANILLA Name: BRENTON KISER Insurance Providers Guarantor name: WARREN QUINTANILLA Health Plan Information #: 1 Payer: MEDEX Member Number: [id number] Policy Number: NA Group Number: NA Health Plan Information #: 2 Payer: MEDICARE PART B OUTPT Member Number: [id number] Policy Number: NA Group Number: NA
--- OUTSIDE RECORDS SUMMARY | 2024-05-09 16:55 | XMS_ITS | Continuity of Care Document ---
Author Organization [address] [place] [address]- Care Team Providers Care Cue Selector Name Role Phone Liliana Gutierres Primary Care Physician Encounter [place] Date(s): 04/05/24 - 05/05/[address] [place], [place] [address] Attending Physician: Andreia Monahan Admitting Physician: Andreia Monahan Referring Physician: Andreia Monahan Encounter Type: Triage Allergies, Adverse Reactions, Alerts Substance Criticality Severity Reaction Reaction Severity Status penicillins 1 Resolv ed Levaquin Rash Active Adhesive Bandage Skin Irrita tion: red and itchy Active Jardiance Active sulfa drugs Skin Irritation : redness, sash, itching Active Avelox rash Active HydroDIURIL Skin Irritation : red and itch and rash Active Spiriva Unsure of reaction A ctive metFORMIN Active 1see ED note from 07/22, family history of allergy Immunizations Given and Recorded Vaccine Date Status Refusal Reason SARS-CoV-2(COVID-19)mRNA-LNP vac(avx423) 11/14/23 Recorded SARS-CoV-2(COVID-19)mRNA-LNP vac(yvs001) 05/02/23 Recorded SARS-CoV-2(COVID-19)mRNA-LNP vac(ktr622) 12/05/22 Recorded pneumococcal 23-valent vaccine 10/31/23 Recorded RSV vaccine preF3, recombinant 12/19/22 Recorded influenza virus vaccine, inactivated 12/05/22 Michele rded influenza virus vaccine, inactivated 11/19/21 Michele rded influenza virus vaccine, inactivated 11/09/20 Michele rded pneumococcal 20-valent conjugate vaccine 06/20/22 Recorded [id number] 12y+ bivalent booster vax 06/20/22 Recorded [id number] 12y+ bivalent booster vax 11/13/21 Recorded rabies vaccine, human diploid cell 09/25/21 Given rabies vaccine, human diploid cell 09/18/21 Given rabies vaccine, human diploid cell 09/14/21 Given rabies vaccine, human diploid cell 09/11/21 Given Rabies Immune Globulin, Human 09/11/21 Given SARS-CoV-2 mRNA ([id number]) vax 07/14/21 Recorded SARS-CoV-2 (COVID-19) mRNA BNT-162b2 vac 03/31/20 Recorded SARS-CoV-2 (COVID-19) mRNA BNT-162b2 vac 03/10/20 Recorded tetanus-diphtheria toxoids (Td) 12/30/16 Recorded Medications (Vitamin D3) Cholecalciferol 400 MCFP units/mL oral syringe 1 mL = 10 [...] Replace Required Details, Route to Pharmacy Electronically, [facility]/pharmacy #[id number], Partial fill upon patient request if the prescription is for a scheduleII opioid drug., 163, cm, 03/28/24 17:49:00 EST, Height, 66, kg, 03/28/24 17:49:00 EST, Dry Weight Start Date: 03/29/24 Status: Ordered Quantity: 3.0 Unit: tablet Repeat number: 1 levothyroxine 0.05 mg oral tablet 1 tablet = 50 mcg, By Mouth, Daily, # 90 tablet, 1 Refills, Maintenance, 04/23/24 1:22:00 PM EDT, [facility]/pharmacy #[id number], Partial fill upon patient request if [...] 8:04:00 AM EDT, Route to Pharmacy Electronically, [id number], 163, cm, 07/30/23 8:30:00 EDT, Height, 70.4, kg, 01/31/23 11:49:00 EST, Dry Weight Start Date: 09/20/23 Status: Ordered Quantity: 90.0 Unit: tablet Repeat number: 1 Mounjaro 2.5 mg/0.5 mL subcutaneous solution See Instructions, INJECT 2.5MG SUBCUTANEOUSLY ONCE WEEKLY ROTATE INJECTION SITES, # 2 Unknown, 11 Refills, Maintenance, 02/16/24 4:39:00 PM EST, [facility] [address], 162, cm, 02/15/24 13:56:00 EST, Height,67.4, kg, 02/15/24 13:56:00 EST, Dry Weight Start Date: 02/16/24 Status: Ordered Quantity: 2.0 Unit: Unknown Repeat number: 1 [place]-3 oral capsule 0 Refills, Maintenance, 03/30/23 10:29:00 [...] 9:41:00 AM EDT, Route to Pharmacy Electronically, [facility]/pharmacy #[id number], Partial fill upon patient request if the [...] tablet, 3 Refills, Maintenance, 01/29/15 7:49:00AM EST, [facility] Start Date: 01/29/15 Stop Date: 01/24/16 Status: Ordered Quantity: 90.0 Unit: tablet Repeat number: 4 Symbicort 160mcg/4.5mcg Inhaler 2, puffs, Inhalation, 2 times a day, rinse mouth and throat after use ICD 10 =J45.909, # 3 each, Refills 3, Tot. Refills 3, Maintenance, 10/01/15 1:20:00 PM EDT, Aerosol, Route to Pharmacy Electronically, [id number], [facility] Start Date: 10/01/15 Status: Ordered Quantity: 3.0 Unit: each Repeat number: 4 Ventolin HFA 108 mcg/inh inhalation aerosol with adapter 2 puffs, Inhalation, Every 6 hours, PRN for wheezing, # 18 Gm, 3 Refills, Maintenance, 07/18/14 2:05:36 PM EDT, Aerosol, [facility] Start Date: 07/18/14 Status: Ordered Quantity: [...] Team Personnel Name: Rk Rivera RN Position: [facility] RN Member Role: Primary Care Nurse Name: Liliana Gutierres Position: [facility] PCO Associate Professional Member Role: PCP Address: [address] [place] [address] Telecom: Name: Dara Headley Position: [facility] Paper Latcher Member Role: Senior Landscape Architect Name: Gabi Milton RN Position: [facility] RN Member Role: Primary Care Nurse Name: Ren Aponte MD Position: [facility] Cardiology MD Member Role: Lifetime Consulting Physician Address: [address] [place] [address] Telecom: Care Team Related Persons Name: DAVI GLORIA Name: KERI QUINTANILLA Name: BRENTON KISER Insurance Providers Guarantor name: WARREN QUINTANILLA Health Plan Information #: 1 Payer: MEDICARE PART B OUTPT Member Number: NA Policy Number: NA Group Number: NA Health Plan Information #: 2 Payer: MEDEX Member Number: NA Policy Number: NA Group Number: NA
--- OUTSIDE RECORDS SUMMARY | 2024-05-09 16:55 | XMS_ITS | Continuity of Care Document ---
Author Organization [address] [place] [address]- Care Team Providers Care X Ray Service Technician Name Role Phone Liliana Gutierres [id number] - 05/05/[address] [place], [place] [address] Attending Physician: Adonis Espinoza MD Encounter Type: Pre Office Visit Allergies, Adverse Reactions, Alerts Substance Criticality Severity Reaction Reaction Severity Status Levaquin Rash Active metFORMIN Active penicillins 1 Resolv ed sulfa [...] Recorded Vaccine Date Status Refusal Reason SARS-CoV-2(COVID-19)mRNA-LNP vac(rjj509) 11/14/23 Recorded SARS-CoV-2(COVID-19)mRNA-LNP vac(iex700) 05/02/23 Recorded SARS-CoV-2(COVID-19)mRNA-LNP vac(mdf792) 12/05/22 Recorded pneumococcal 23-valent vaccine 10/31/23 Recorded RSV vaccine preF3, recombinant 12/19/22 Recorded influenza virus vaccine, inactivated 12/05/22 Michele rded influenza virus vaccine, inactivated 11/19/21 Michele rded influenza virus vaccine, inactivated 11/09/20 Michele rded pneumococcal 20-valent conjugate vaccine 06/20/22 Recorded [id number] 12y+ bivalent booster vax 06/20/22 Recorded [id number] 12y+ bivalent booster vax 11/13/21 Recorded rabies vaccine, human diploid cell 09/25/21 Given rabies vaccine, human diploid cell 09/18/21 Given rabies vaccine, human diploid cell 09/14/21 Given rabies vaccine, human diploid cell 09/11/21 Given Rabies Immune Globulin, Human 09/11/21 Given SARS-CoV-2 mRNA ([id number]) vax 07/14/21 Recorded SARS-CoV-2 (COVID-19) mRNA BNT-162b2 vac 03/31/20 Recorded SARS-CoV-2 (COVID-19) mRNA BNT-162b2 vac 03/10/20 Recorded tetanus-diphtheria toxoids (Td) 12/30/16 Recorded Medications (Vitamin D3) Cholecalciferol 400 DETENTION units/mL oral syringe 1 mL = 10 [...] Replace Required Details, Route to Pharmacy Electronically, [facility]/pharmacy #[id number], Partial fill upon patient request [...] 1 Refills, Maintenance, 04/23/24 1:22:00 PM EDT, [facility]/pharmacy #[id number], Partial fill upon patient request [...] 8:04:00 AM EDT, Route to Pharmacy Electronically, [facility] [id number], 163, cm, 07/30/23 8:30:00 EDT, Height, 70.4, kg, 01/31/23 11:49:00 EST, Dry Weight Start Date: 09/20/23 Status: Ordered Quantity: 90.0 Unit: tablet Repeat number: 1 Mounjaro 2.5 mg/0.5 mL subcutaneous solution See Instructions, INJECT 2.5MG SUBCUTANEOUSLY ONCE WEEKLY ROTATE INJECTION SITES, # 2 Unknown, 11 Refills, Maintenance, 02/16/24 4:39:00 PM EST, [facility] 93[facility], 162, cm, 02/15/24 13:56:00 EST, Height,67.4, kg, 02/15/24 13:56:00 EST, Dry Weight Start Date: 02/16/24 Status: Ordered Quantity: 2.0 Unit: Unknown Repeat number: 1 [place]-3 oral capsule 0 Refills, Maintenance, 03/30/23 10:29:00 [...] 9:41:00 AM EDT, Route to Pharmacy Electronically, [facility]/pharmacy #[id number], Partial fill upon patient request [...] tablet, 3 Refills, Maintenance, 01/29/15 7:49:00AM EST, [facility] Start Date: 01/29/15 Stop Date: 01/24/16 Status: Ordered Quantity: 90.0 Unit: tablet Repeat number: 4 Symbicort 160mcg/4.5mcg Inhaler 2, puffs, Inhalation, 2 times a day, rinse mouth and throat after use ICD 10 =J45.909, # 3 each, Refills 3, Tot. Refills 3, Maintenance, 10/01/15 1:20:00 PM EDT, Aerosol, Route to Pharmacy Electronically, [id number], [facility] Start Date: 10/01/15 Status: Ordered Quantity: 3.0 Unit: each Repeat number: 4 Ventolin HFA 108 mcg/inh inhalation aerosol with adapter 2 puffs, Inhalation, Every 6 hours, PRN for wheezing, # 18 Gm, 3 Refills, Maintenance, 07/18/14 2:05:36 PM EDT, Aerosol, [facility] Start Date: 07/18/14 Status: Ordered Quantity: [...] PCO Associate Professional Member Role: PCP Address: [address] [place] [address] Telecom: Name: Dara Headley Position: [facility] [place] Paper Slitter Member Role: Tour Consultant Name: Gabi Milton RN Position: [facility] RN Member Role: Primary Care Nurse Name: Ren Aponte MD Position: [facility] Cardiology MD Member Role: Lifetime Consulting Physician Address: [address] [place] [address] Telecom: Care Team Related Persons Name: DAVI GLORIA Name: KERI QUINTANILLA Name: BRENTON KISER Insurance Providers Guarantor name: WARREN QUINTANILLA Health Plan Information #: 1 Payer: MEDICARE PART B OUTPT Member Number: [id number] Policy Number: NA Group Number: NA Health Plan Information #: 2 Payer: MEDEX Member Number: [id number] Policy Number: NA Group Number: NA
--- OUTSIDE RECORDS SUMMARY | 2024-05-09 16:55 | XMS_ITS | Patient Health Record ---
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) Active confirmed Problem [id number] Gastrocnemius equinus of left lower extremity (M21.6X2) Active confirmed Plan Of Treatment Pending Test Test Name Order Date X ray : Foot, left 3v 09/12/2020 Insurance Providers Payer Name Payer Address Payer Phone Subscriber Number Group Number Insured Name Patient Relationship to Insured Coverage Start Date Coverage End Date Medicare of [place] [address] [place] [phone] [id number] Suyapa Stein Self - patient is the insured [employer] [address] [place] [address] [phone] [id number] 3 Katharine Steinith Self - patient is [...]
--- OUTSIDE RECORDS SUMMARY | 2024-05-09 16:55 | XMS_ITS | Clinical Summary ---
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 Rosacea 10/07/2006 Surgical History Surgery Date Site/Laterality Comments TONSILLECTOMY [...] Type 2 diabetes mellitus wit hout complication 09/24/2017 DX:Type 2 diabetes mellitus without complication (HCC) Arthritis 09/24/2017 DX:Arthritis History of colon polyps 10/07/2006 DX:Histo ry of colon polyps Asthma 07/24/2016 DX:Asthma; COMME NT: + Methacholine challenge Gastroesophageal reflux disease 07/24/2016 DX:Gastroesophageal reflux disease Hyperlipidemia 10/07/2006 DX:Hyperlipidemi a Hypothyroidism 02/20/2011 DX:Hypothyroidis m DJD (degenerative joint disease) 09/24/2017 DX:DJD (degenerative joint disease); COMMENT: Hands and back Aortic ectasia 09/24/2017 DX:Aortic ectasi a (HCC); COMMENT: 06/2011 Stress Echo WNL; normal [...] (HGBA1C) 01/14/2022 09/06/2019 Influenza Vaccine (#1) 2023 , 11/19/2021, 11/09/2020 Hypertension/CHF/CAD Annual BMP Blood Test [...] Results * Urine Albumin Creatinine Ratio (09/06/2019) Pathologist [facility] Urine Albumin Creatinine Ratio abstracted [facility] Provider HEALTH MAINTENANCE Final Result * Annual BMP Blood Test (09/06/2019) Pathologist [facility] Annual BMP Blood Test abstracted [facility] Provider HEALTH MAINTENANCE Final Result * (ABNORMAL) Hemoglobin A1c (09/06/2019) [facility] Hemoglobin A1C 7.8(A) <=6.5 % Blood Venous blood specimen / Unknown [facility] Provider LAB BLOOD ORDERABLES Janey l Result * (ABNORMAL) Lipid panel (09/06/2019) [facility] LDL/HDL Ratio 3 0 - 4 Triglycerides 158(A) 0 - 150 mg/dL Cholesterol 142 0 - 200 mg/dL HDL 43 >=40 mg/dL LDL Cholesterol 68 0 - 100 mg/dL Blood Venous blood specimen / Unknown us Historical Provider LAB BLOOD ORDERABLES Janey l Result from Last 3 Months or Most Recently Relevant to Health Maintenance Insurance MEDICARE [facility] Care Teams Sandal Parts Assembler Relationship Specialty Start Date End Date Liliana Dyson PA [address] [place] [id number] PCP - General Physician Contact Centre Supervisor 02/08/24
== END 2024-05-09 15:10 | disposition home or self-care (01) ==
LOC: HO.HPS 14:08
PROVIDERS: PCP Physician Assistant Medical; Visit Provider Hospitalist
DX: J45.40 Moderate persistent asthma, uncomplicated (principal); R06.09 Other forms of dyspnea; K44.9 Diaphragmatic hernia without obstruction or gangrene
CPT/HCPCS: 99214

== ENCOUNTER → 2024-05-09 14:08 | Outpatient (BNVA) | payer MEDICARE, SELFPAY | PROVIDERS: PCP Physician Assistant Medical; Visit Provider Hospitalist | DX: J45.40 Moderate persistent asthma, uncomplicated (principal); R06.09 Other forms of dyspnea; K44.9 Diaphragmatic hernia without obstruction or gangrene | CPT/HCPCS: 99212 ==